=== PATIENT | male | born 1960 | race Caucasian/White ===

== ENCOUNTER 2023-01-18 15:03 | Outpatient (AMB) | payer OTHER, SELFPAY ==
--- NOTE | 2023-01-18 15:08 | MHC.PC.OV ---
Vital Signs 01/18/23 15:09 01/18/23 15:33 Height 5 ft 7 in Weight 178 lb BMI 27.9 BP 160/82 H 164/100 H Blood Pressure Location Rt brachial Rt brachial Position Sitting Sitting Respiration 12 Pulse 73 Pulse Source Pulse Oximeter Temp 97.2 F Temp Source Temporal Artery Scan Pulse Oximetry (%) 98 Oxygen Delivery Method Room Air Intake Visit Reasons: 2 mos HTN Intake Note: Patient states that he has had a migraine for about 2 weeks and stated that his BP has been fluctuating up and down and today it has been high. Patient states that he would like to try Nebivolol. Patient sztates that the Lisinopril has been causing him body aches and made him feel not himself. 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 Accompanied by: Self / Same As Patient Allergies doxycycline Allergy (Mild, Verified 01/18/23 15:24) stomach problems cillins Allergy (Mild, Uncoded 01/18/23 15:24) Rash Medication List - Last Reconciled 01/18/23 by Aakash George CNP lisinopril 20 mg PO DAILY Tobacco use date assessed: 10/20/22 Dental Screening Dental Screen Date: 01/18/23 Did you have a dental visit in the last 12 months?: Yes Did you have a dental problem in the last 6 months where you did not have access to dental care?: No Was dental information given to patient?: Patient has dentist HPI HPI Comments History of Present Illness Details 62-year-old male presents for hypertension follow-up. He reports body aches with Lisinopril. Therefore, he reduced the dose to 10 mg since his last visit. He reports persistent generalized mild headaches with intermittent blurry vision for the past 2 weeks. He notes that his blood pressure has been fluctuating up and down and has been elevated today. He reports h/o heart rate as low as 60. He notes that he will like to try nebivolol. He denies dizziness or chest pain. 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 Cognitive needs: No Hearing needs: No Vision needs: No Questionnaire Thrive Questionnaire Date Thrive assessed: 09/27/22 JASWINDER-7 AMB Questionnaire JASWINDER-7 Date JASWINDER - 7 assessed: 09/27/22 Source: Developed by Drs. Jacob Armstrong, Ann Johnson, Kishore Cruz and colleagues, with an educational jada from [employer]. Review of Systems Const Details: Const Denies chills, Denies fatigue, Denies fever(s), Denies headache(s) and Denies weakness ENT Denies dizziness and Reports headache(s) Card Denies chest pain, Denies lightheadedness, Denies dyspnea and Denies other (Palpitations) Resp Denies cough, Denies dyspnea, Denies wheezing and Denies other ( shortness of breath) GI Denies abdominal pain, Denies melena, Denies hematochezia, Denies change in bowel habits, Denies dyspepsia and Denies nausea Denies hematuria and Denies dysuria Musc Denies abnormal gait, Denies myalgias, Denies arthralgias, Denies numbness and Denies tingling Skin/Breast Denies rash, Denies unusual bruising and Denies wounds Neuro Denies abnormal gait, Denies dizziness, Denies headache(s), Denies memory loss, Denies numbness, Denies Sensory deficit (Neuro), Denies tingling and Denies weakness Psych Denies anxiety and Denies depression Endo Denies fatigue Aller/Immun Denies wheezing Physical exam (Primary Care) Vital Signs: Last Vital Signs Temp 97.2 F 01/18/23 15:09 Pulse 73 01/18/23 15:09 Resp 12 01/18/23 15:09 BP 160/82 H 01/18/23 15:09 Pulse Ox 98 01/18/23 15:09 Oxygen Delivery Method Room Air 01/18/23 15:09 BMI result Body Mass Index 27.9 Tobacco/Smoking Status: Tobacco use Status Tobacco use date assessed 10/20/22 01/18/23 15:19 Patient Tobacco Use Status Never used Tobacco 01/18/23 15:19 e-Cigarette/Vaping Use Never Used 01/18/23 15:19 Thrive Assessment: Date of Thrive Assessment Date Thrive assessed 09/27/22 01/18/23 15:19 Const Other: General: no acute distress and well developed Nutritional Appearance: well nourished Orientation/consciousness: patient oriented x3 [facility] Head: Yes normocephalic and Yes atraumatic Eyes General: appearance normal, both eyes and all related structures Pupils: Equal, round and reactive pupils present EOM: EOMs intact bilaterally Resp Effort & Inspection: normal respiratory effort Auscultation: clear to auscultation bilaterally Cardio Rate: regular rate Rhythm: regular rhythm Heart sounds: S1 normal heart sound present, S2 normal heart sound present, no gallops, no murmurs and no rubs GI Palpation (GI): No Abdominal aortic bruit present, Soft to palpation, nontender, No hepatosplenomegaly present and No Rebound tenderness present Auscultation: normal bowel sounds General: Yes no CVA tenderness Back/Spine/Pelvis Back: no CVA tenderness Cervical Spine: cervical ROM normal and No Cervical spine tenderness Thoracic/Lumbar Spine: thoraco-lumbar ROM normal, No pain with thoraco-lumbar ROM, No thoracic spinal tenderness and No lumbar spinal tenderness Extrem General: Yes normal to inspection, No edema and No calf tenderness Skin General: warm and dry. Normal skin color. Normal skin turgor Lesions: no lesions Rashes: no rashes Trauma: no lacerations or abrasions Wounds: no wounds Nails: normal Neuro General: patient oriented x3, gait normal and no focal neuro deficit Cranial nerves: Yes Equal, round and reactive pupils present Cognition (Neuro): normal cognition Gait exam (Neuro): Normal gait present Sensory Exam: No Sensory deficit (Neuro) Psych Affect: normal affect Assessment and Plan Assessment & Plan (1) Hypertension: Code(s): I10 - Essential (primary) hypertension Plan: His blood pressure is 164/100, above goal of 140/90 Will not start a beta-michele at this time due to history of heart rate of 60 He states that he is willing to resume taking lisinopril 20 mg daily. Encouraged to take the medication daily. Low-sodium diet encouraged. Follow-up for nurse visit in 1 week Return in 1 month or sooner with worsening or new symptoms Verbalized understanding and agreed with treatment plan (2) Headache: Code(s): R51.9 - Headache, unspecified Plan: Persistent headache and intermittent blurry vision be attributed to elevated blood pressure Lisinopril 20 mg daily Follow-up with worsening or new symptoms Verbalized understanding and agreed with treatment plan. Coding Level of Care Code Est Pt Level 3 (77488) Diagnoses Hypertension I10 Headache R51.9 Time Spent (min) 25
[2023-01-18 15:09] VITALS: BP 160/82; PULSE 73; RESP 12; TEMP 36.2; O2SAT 98; BMI 27.9
[2023-01-18 15:33] VITALS: BP 164/100
== END 2023-01-18 16:04 | disposition home or self-care (01) ==
PROVIDERS: Visit Provider Nurse Practitioner Family
DX: I10 Essential (primary) hypertension (principal); R51.9 Headache, unspecified
CPT/HCPCS: 99213

== ENCOUNTER 2023-02-19 14:57 | Outpatient (AMB) | payer OTHER, SELFPAY ==
--- NOTE | 2023-02-19 15:04 | MHC.PC.OV ---
Vital Signs 02/19/23 15:08 Height 5 ft 7 in Weight 176 lb BMI 27.6 BP 132/80 Blood Pressure Location Rt brachial Position Sitting Respiration 14 Pulse 76 Pulse Source Pulse Oximeter Temp 98.1 F Temp Source Temporal Artery Scan Pulse Oximetry (%) 97 Oxygen Delivery Method Room Air Intake Visit Reasons: 1 mos HTN Intake Note: Patient reports he was seen in the office and was informed he should have 20mg of lisinopril and it helped with his blood pressure. Patient reports he was working and his blood pressure was elevated, on the way home he experienced chest discomfort and he was seen in the emergency department. Patient reports testing did not show anything alarming. Patient reports the hospital added a medication for blood pressure called amlodipine 5mg and he has been taking this along with the lisinopril 20mg. Medical records were requested from [facility] in [place]. Patient reports his headaches have continued despite his blood pressure being under control at this time. 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 Accompanied by: Self / Same As Patient Allergies doxycycline Allergy (Mild, Verified 02/19/23 15:19) stomach problems cillins Allergy (Mild, Uncoded 02/19/23 15:19) Rash Medication List - Last Reconciled 02/19/23 by Aakash George CNP amlodipine 5 mg PO DAILY lisinopril 20 mg PO DAILY Tobacco use date assessed: 10/20/22 Dental Screening Dental Screen Date: 02/19/23 Did you have a dental visit in the last 12 months?: Yes Did you have a dental problem in the last 6 months where you did not have access to dental care?: No Was dental information given to patient?: Patient has dentist HPI HPI Comments History of Present Illness Details 62-year-old male presents for hypertension follow-up. He notes he was evaluated at an ED in [place] between 02/05/2023 and 02/06/2023 for chest discomfort. He notes that findings were unremarkable. He notes amlodipine 5 mg daily was added to this HTN regimen of Lisinopril 20 mg daily. He notes he has been taking both medications as prescribed. No acute symptoms today. He brought recent ED documentation with him. Labs were unremarkable except for elevated lipid levels: Triglycerides 204, total cholesterol 202, LDL direct 144, and HDL 40. CT chest and abdomen was unremarkable. He notes that echo was performed but not including in the documentation he brought. 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 Cognitive needs: No Hearing needs: No Vision needs: No Questionnaire Thrive Questionnaire Date Thrive assessed: 09/27/22 JASWINDER-7 AMB Questionnaire JASWINDER-7 Date JASWINDER - 7 assessed: 09/27/22 Source: Developed by Drs. Jacob Armstrong, Ann Johnson, Kishore Cruz and colleagues, with an educational jada from [employer]. Review of Systems Const Details: Const Denies chills, Denies fatigue, Denies fever(s), Denies headache(s) and Denies weakness ENT Denies dizziness and Denies headache(s) Card Denies chest pain, Denies lightheadedness, Denies dyspnea and Denies other (Palpitations) Resp Denies cough, Denies dyspnea, Denies wheezing and Denies other ( shortness of breath) GI Denies abdominal pain, Denies melena, Denies hematochezia, Denies change in bowel habits, Denies dyspepsia and Denies nausea Denies hematuria and Denies dysuria Musc Denies abnormal gait, Denies myalgias, Denies arthralgias, Denies numbness and Denies tingling Skin/Breast Denies rash, Denies unusual bruising and Denies wounds Neuro Denies abnormal gait, Denies dizziness, Denies headache(s), Denies memory loss, Denies numbness, Denies Sensory deficit (Neuro), Denies tingling and Denies weakness Psych Denies anxiety, Denies depression, Denies memory loss Endo Denies cold intolerance, Denies fatigue, Denies heat intolerance, Denies polydipsia and Denies polyuria Aller/Immun Denies wheezing Physical exam (Primary Care) Vital Signs: Last Vital Signs Temp 98.1 F 02/19/23 15:08 Pulse 76 02/19/23 15:08 Resp 14 02/19/23 15:08 BP 132/80 02/19/23 15:08 Pulse Ox 97 02/19/23 15:08 Oxygen Delivery Method Room Air 02/19/23 15:08 BMI result Body Mass Index 27.6 Tobacco/Smoking Status: Tobacco use Status Tobacco use date assessed 10/20/22 02/19/23 15:06 Patient Tobacco Use Status Never used Tobacco 02/19/23 15:06 e-Cigarette/Vaping Use Never Used 02/19/23 15:06 Thrive Assessment: Date of Thrive Assessment Date Thrive assessed 09/27/22 02/19/23 15:06 Const Other: General: no acute distress and well developed Nutritional Appearance: well nourished Orientation/consciousness: patient oriented x3 HENMT Head: Yes normocephalic and Yes atraumatic Eyes General: appearance normal, both eyes and all related structures Pupils: Equal, round and reactive pupils present EOM: EOMs intact bilaterally Resp Effort & Inspection: normal respiratory effort Auscultation: clear to auscultation bilaterally Cardio Rate: regular rate Rhythm: regular rhythm Heart sounds: S1 normal heart sound present, S2 normal heart sound present, no gallops, no murmurs and no rubs GI Palpation (GI): No Abdominal aortic bruit present, Soft to palpation, nontender, No hepatosplenomegaly present and No Rebound tenderness present Auscultation: normal bowel sounds General: Yes no CVA tenderness Back/Spine/Pelvis Back: no CVA tenderness Cervical Spine: cervical ROM normal and No Cervical spine tenderness Thoracic/Lumbar Spine: thoraco-lumbar ROM normal, No pain with thoraco-lumbar ROM, No thoracic spinal tenderness and No lumbar spinal tenderness Extrem General: Yes normal to inspection, No edema and No calf tenderness Skin General: warm and dry. Normal skin color. Normal skin turgor Lesions: no lesions Rashes: no rashes Trauma: no lacerations or abrasions Wounds: no wounds Nails: normal Neuro General: patient oriented x3, gait normal and no focal neuro deficit Cranial nerves: Yes Equal, round and reactive pupils present Cognition (Neuro): normal cognition Gait exam (Neuro): Normal gait present Sensory Exam: No Sensory deficit (Neuro) Psych Appearance: grossly normal Affect: normal affect Attitude: cooperative Thought process: Normal thought process present Assessment and Plan Assessment & Plan (1) Hypertension: Code(s): I10 - Essential (primary) hypertension Plan: Blood pressure is controlled, 132/80, within goal of less than 140/90 Lisinopril and amlodipine as prescribed Low-sodium diet encouraged Follow-up in 3 months or return sooner with symptoms or concerns Verbalized understanding and agreed with treatment plan. (2) Hyperlipidemia: Code(s): E78.5 - Hyperlipidemia, unspecified Plan: Recent triglyceride, total cholesterol, and LDL levels were elevated Patient declines medication treatment at this time. Reports severe adverse reaction to statins. Advised to limit foods high in saturated fat and avoid foods high trans fat. Routine exercise encouraged Lipid panel ordered. Encouraged to fast for at least 10-12 hours and get blood work done before next visit Follow-up in 3 months Verbalized understanding and agreed with treatment plan. Orders: Orders Lipid Panel Today E78.5 - Hyperlipidemia, unspecified Coding Level of Care Code Est Pt Level 3 (16555) Diagnoses Hypertension I10 Hyperlipidemia E78.5
[2023-02-19 15:08] VITALS: BP 132/80; PULSE 76; RESP 14; TEMP 36.7; O2SAT 97; BMI 27.6
== END 2023-02-19 15:44 | disposition home or self-care (01) ==
PROVIDERS: PCP Nurse Practitioner Family; Visit Provider Nurse Practitioner Family
DX: I10 Essential (primary) hypertension (principal); E78.5 Hyperlipidemia, unspecified
CPT/HCPCS: 99213

== ENCOUNTER 2023-05-30 08:58 | Outpatient (AMB) | payer OTHER, SELFPAY ==
--- NOTE | 2023-05-30 09:04 | A.OFFPC_ITS ---
Vital Signs 05/30/23 09:06 Height 5 ft 7 in Weight 177 lb 2 oz BMI 27.7 BP 132/72 Blood Pressure Location Lt brachial Position Sitting Respiration 16 Pulse 72 Pulse Source Pulse Oximeter Temp 98.4 F Temp Source Oral Pulse Oximetry (%) 98 Oxygen Delivery Method Room Air Oxygen Flow Rate 98.4 Intake Visit Reasons: Reschedule 3 mos HTN Intake Note: Patient is here to follow up on hypertension Allergies doxycycline Allergy (Mild, Verified 05/30/23 09:30) stomach problems cillins Allergy (Mild, Uncoded 05/30/23 09:30) Rash Medication List - Last Reconciled 05/30/23 by Aakash George CNP amlodipine 5 mg PO DAILY 30 days lisinopril 20 mg PO DAILY Tobacco use date assessed: 05/30/23 Dental Screening Dental Screen Date: 05/30/23 Did you have a dental visit in the last 12 months?: Yes Did you have a dental problem in the last 6 months where you did not have access to dental care?: No Was dental information given to patient?: Patient has dentist HPI HPI Comments History of Present Illness Details 63-year-old male presents for hypertensi on and hyperlipidemia follow-up He is on amlodipine and lisinopril which she admits to taking as prescribed His recent Triglycerides, total cholesterol, and LDL direct levels were elevated, 204, 202, and 144 respectively. HDL was slightly low, 40. He declined medication treatment. He reported adverse reaction to statins. Lifestyle changes including diet and exercise encouraged. Repeat lipid panel was ordered. He was advised to get fasting blood work done before his next visit. He denies acute symptoms at this time. He had CT done at the ED in 01/2023 when he presented for chest discomfort. He b rought the CT result today which revealed 3 mm solid pulmonary nodule right middle lobe. 5 mm solid perifissural nodule right middle lobe. Recommended repeat CT in 12 months if patient has significant smoking history or high-risk for developing cancer. He denies history of cigarette smoking and denies family history of lung cancer. 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 Jacob Armstrong, Ann Johnson, Kishore Cruz and colleagues, with an educational jada from [employer]. Review of Systems Const Details: Const Denies chills, Denies fatigue, Denies fever(s), Denies headache(s) and Denies weakness ENT Denies dizziness and Denies headache(s) Card Denies chest pain, Denies lightheadedness, Denies dyspnea and Denies other (Palpitations) Resp Denies cough, Denies dyspnea, Denies wheezing and Denies other ( shortness of breath) GI Denies abdominal pain, Denies melena, Denies hematochezia, Denies change in bowel habits, Denies dyspepsia and Denies nausea Denies hematuria and Denies dysuria Musc Denies abnormal gait, Denies myalgias, Denies arthralgias, Denies numbness and Denies tingling Skin/Breast Denies rash, Denies unusual bruising and Denies wounds Neuro Denies abnormal gait, Denies dizziness, Denies headache(s), Denies memory loss, Denies numbness, Denies Sensory deficit (Neuro), Denies tingling and Denies weakness Psych Denies anxiety, Denies depression, Denies memory loss Endo Denies cold intolerance, Denies fatigue, Denies heat intolerance, Denies polydipsia and Denies polyuria Aller/Immun Denies wheezing Physical exam (Primary Care) Vital Signs: Last Vital Signs Temp 98.4 F 05/30/23 09:06 Pulse 72 05/30/23 09:06 Resp 16 05/30/23 09:06 BP 132/72 05/30/23 09:06 Pulse Ox 98 05/30/23 09:06 Oxygen Delivery Method Room Air 05/30/23 09:06 Oxygen Flow Rate 98.4 05/30/23 09:06 BMI result Body Mass Index 27.7 Tobacco/Smoking Status: Tobacco use Status Tobacco use date assessed 05/30/23 05/30/23 09:14 Patient Tobacco Use Status Never used Tobacco 05/30/23 09:06 e-Cigarette/Vaping Use Never Used 05/30/23 09:06 Thrive Assessment: Date of Thrive Assessment Date Thrive assessed 09/27/22 05/30/23 09:06 Const Other: General: no acute distress and well developed Nutritional Appearance: well nourished Orientation/consciousness: patient oriented x3 HENMT Head: Yes normocephalic and Yes atraumatic Eyes General: appearance normal, both eyes and all related structures Pupils: Equal, round and reactive pupils present EOM: EOMs intact bilaterally Resp Effort & Inspection: normal respiratory effort Auscultation: clear to auscultation bilaterally Cardio Rate: regular rate Rhythm: regular rhythm Heart sounds: S1 normal heart sound present, S2 normal heart sound present, no gallops, no murmurs and no rubs GI Palpation (GI): No Abdominal aortic bruit present, Soft to palpation, nontender, No hepatosplenomegaly present and No Rebound tenderness present Auscultation: normal bowel sounds General: Yes no CVA tenderness Back/Spine/Pelvis Back: no CVA tenderness Cervical Spine: cervical ROM normal and No Cervical spine tenderness Thoracic/Lumbar Spine: thoraco-lumbar ROM normal, No pain with thoraco-lumbar ROM, No thoracic spinal tenderness and No lumbar spinal tenderness Extrem General: Yes normal to inspection, No edema and No calf tenderness Skin General: warm and dry. Normal skin color. Normal skin turgor Lesions: no lesions Rashes: no rashes Trauma: no lacerations or abrasions Wounds: no wounds Nails: normal Neuro General: patient oriented x3, gait normal and no focal neuro deficit Cranial nerves: Yes Equal, round and reactive pupils present Cognition (Neuro): normal cognition Gait exam (Neuro): Normal gait present Sensory Exam: No Sensory deficit (Neuro) Psych Appearance: grossly normal Affect: normal affect Attitude: cooperative Thought process: Normal thought process present Assessment and Plan Assessment & Plan (1) Hypertension: Code(s): I10 - Essential (primary) hypertension Plan: Blood pressure is 132/72, within goal of less than 140/90 Continue with current treatment regimen Low-sodium diet encouraged Will continue to monitor Verbalized understanding and agreed with treatment plan (2) Hyperlipidemia: Code(s): E78.5 - Hyperlipidemia, unspecified Plan: His recent Triglycerides, total cholesterol, and LDL direct levels were elevated, 204, 202, and 144 respectively. HDL was slightly low, 40 He brought a record of his recent lipid panel level. Triglycerides and total cholesterol levels were elevated, 212, and 528 respectively, HDL was low, 36, LDL was not calculated He declines medication treatment He requests a repeat lipid panel and notes that his recent lipid panel blood work was nonfasting Lipid panel ordered. Advised to fast for 10-12 hours, may drink water only, and get blood work done before his next visit Healthy diet and routine exercise encouraged Follow-up in 2-3 weeks or return sooner with symptoms or concerns Verbalized understanding and agreed with treatment plan (3) Pulmonary nodules: Code(s): R91.8 - Other nonspecific abnormal finding of lung field Plan: He had CT done at the ED in 01/2023 when he presented for chest discomfort. He brought the CT result today which revealed 3 mm solid pulmonary nodule right middle lobe. 5 mm solid perifissural nodule right middle lobe. Recommended repeat CT in 12 months if patient has significant smoking history or high-risk for developing cancer. He denies history of cigarette smoking and denies family history of lung cancer. Referred to pulmonology Return with symptoms or concerns Verbalized understanding and agreed with treatment plan Orders: Orders Lipid Panel Today E78.5 - Hyperlipidemia, unspecified LDL Cholesterol Direct Today E78.5 - Hyperlipidemia, unspecified Referrals Pulmonology Referral R91.8 - Other nonspecific abnormal finding of lung field Coding Level of Care Code Est Pt Level 3 (30316) Diagnoses Hypertension I10 Hyperlipidemia E78.5 Pulmonary nodules R91.8
[2023-05-30 09:06] VITALS: BP 132/72; PULSE 72; RESP 16; TEMP 36.9; O2SAT 98; BMI 27.7
== END 2023-05-30 09:45 | disposition home or self-care (01) ==
PROVIDERS: PCP Nurse Practitioner Family; Visit Provider Nurse Practitioner Family
DX: I10 Essential (primary) hypertension (principal); E78.5 Hyperlipidemia, unspecified; R91.8 Other nonspecific abnormal finding of lung field
CPT/HCPCS: 99213

== ENCOUNTER 2023-06-08 15:10 | Outpatient (AMB) | payer OTHER, SELFPAY ==
--- NOTE | 2023-06-08 15:14 | A.OFFVIS_ITS ---
Intake Vital Signs 3 06/08/23 15:15 Height 5 ft 7 in Weight 177 lb BMI 27.7 BP 122/70 Blood Pressure Location Rt brachial Position Sitting Pulse 62 Pulse Source Pulse Oximeter Pulse Oximetry (%) 98 Oxygen Delivery Method Room Air Intake Visit Reasons: Other nonspecific abnormal finding of lung field Machine Designer Required: No Telegraph Repeater Mechanic: Telegraph Repeater Mechanic offered & declined Accompanied by: Self / Same As Patient Allergies doxycycline Allergy (Mild, Verified 06/08/23 15:18) stomach problems cillins Allergy (Mild, Uncoded 06/08/23 15:18) Rash Medication List - Last Reconciled 06/08/23 by Karina Fregoso LPN amlodipine 5 mg PO DAILY 30 days lisinopril 20 mg PO DAILY HPI Other nonspecific abnormal finding of lung field 2 HPI0 Details Odilon is a pleasant 63 year old male, never smoker, with underlying history of GERD. He was referred for pulmonary evalaution after CT from January 2023, revealed pulmonary nodules. CT report below. He denies any respiratory symptoms at this time. 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 He denies any personal or family history of respiratory conditions. 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 Cognitive needs: No Hearing needs: No Vision needs: No Review of Systems Const Denies chills, Denies excessive sweating, Denies fever(s), Denies headache(s) and Denies night sweats Eyes Denies dry eyes, Denies irritation and Denies itchy eyes ENT Reports Normal hearing present, Denies headache(s), Denies nasal congestion, Denies nasal discharge, Denies post nasal drip and Denies sore throat Card Denies chest pain, Denies chest pain at rest, Denies chest pain with activity, Denies claudication, Denies leg edema, Denies dyspnea, Denies dyspnea on exertion, Denies orthopnea and Denies paroxysmal nocturnal dyspnea Resp Denies chest congestion, Denies cough, Denies excessive phlegm production, Denies pain on inspiration, Denies pain with cough, Denies dyspnea, Denies dyspnea on exertion, Denies stridor and Denies wheezing Musc Denies myalgias Neuro Reports Normal hearing present and Denies headache(s) Endo Denies excessive sweating J Luis/Lymph Denies lymphadenopathy Aller/Immun Denies itchy eyes, Denies seasonal rhinorrhea and Denies wheezing Physical Exam Vital Signs: Last Vital Signs Pulse 62 06/08/23 15:15 BP 122/70 06/08/23 15:15 Pulse Ox 98 06/08/23 15:15 Oxygen Delivery Method Room Air 06/08/23 15:15 BMI result Body Mass Index 27.7 Const General: cooperative, healthy appearing, comfortable, no acute distress, well developed and alert Orientation/consciousness: patient oriented x3 Limitations: no limitations HEENT Head: Yes normal to inspection, Yes normocephalic and Yes atraumatic Ears: hearing grossly normal bilaterally and external ears normal Eyes General: appearance normal, both eyes and all related structures Eyelids: Yes eyelids normal Sclerae: sclerae normal EOM: EOMs intact bilaterally Neck Neck: Yes normal visual inspection and Yes no lymphadenopathy Lymphatic: no lymphadenopathy noted Chest Chest palpation & inspection: normal inspection of the chest Resp Effort & Inspection: normal respiratory effort, able to speak in complete sentences, no audible wheezes, no cough, no stridor, not tachypneic, no tripod positioning and no use of accessory muscles Auscultation: clear to auscultation bilaterally Cardio Jugular venous distension: no JVD Rate: regular rate Rhythm: regular rhythm Skin Other: warm, dry General skin exam: no rashes or lesions noted Neuro General: patient oriented x3 Cranial nerves: Yes Normal hearing present Cognition (Neuro): normal cognition Gait exam (Neuro): Normal gait present Extrem General: Yes normal to inspection, Yes capillary refill normal, Yes no clubbing, cyanosis or edema and Yes no pedal edema Psych Appearance: grossly normal and well kempt Speech and movement: Normal speech and movement present and Clear speech present Affect: normal affect Attitude: cooperative Thought process: Normal thought process present Thought content: Normal thought content present Insight: Good insight present (Psych) Judgement: Good judgement present (Psych) Results Reviewed Results Reviewed: Assessment & Plan Assessment & Plan (1) Pulmonary nodules: Code(s): R91.8 - Other nonspecific abnormal finding of lung field Plan Reviewed chest CT which revealed a two pulmonary nodules, largest 5 mm, both of RML. Will send for repeat chest CT in one year to assess for stability. He is requesting this be performed at [facility]. All questions were answered and patient is in agreement of plan. Will follow up in one year or sooner if needed. Orders: Orders 2 CT chest wo IV con 9 Months R91.8 - Other nonspecific abnormal finding of lung field Coding Level of Care Code New Pt Level 3 (68786) Diagnoses Pulmonary nodules R91.8
[2023-06-08 15:15] VITALS: BP 122/70; PULSE 62; O2SAT 98; BMI 27.7
== END 2023-06-08 16:21 | disposition home or self-care (01) ==
PROVIDERS: PCP Nurse Practitioner Family; Visit Provider Nurse Practitioner Family
DX: R91.8 Other nonspecific abnormal finding of lung field (principal)
CPT/HCPCS: 99203

== ENCOUNTER → 2023-06-08 15:10 | Outpatient (BNVA) | payer OTHER, SELFPAY | PROVIDERS: PCP Nurse Practitioner Family; Visit Provider Nurse Practitioner Family ==

== ENCOUNTER 2023-10-19 15:39 | Outpatient (AMB) | payer OTHER, SELFPAY ==
[2023-10-19 15:45] VITALS: BP 138/78; PULSE 68; RESP 13; TEMP 36.6; O2SAT 99; BMI 25.4
--- NOTE | 2023-10-19 15:45 | MHC.PC.OV ---
Vital Signs 10/19/23 15:45 Height 5 ft 7 in Weight 162 lb BMI 25.4 BP 138/78 Blood Pressure Location Rt brachial Position Sitting Respiration 13 Pulse 68 Pulse Source Pulse Oximeter Temp 97.9 F Temp Source Temporal Artery Scan Pulse Oximetry (%) 99 Oxygen Delivery Method Room Air Intake Visit Reasons: CPE Retail Commission Sales Associate Required: No Accompanied by: Self / Same As Patient Allergies doxycycline Allergy (Mild, Verified 10/19/23 16:16) stomach problems cillins Allergy (Mild, Uncoded 10/19/23 16:16) Rash Medication List - Last Reconciled 10/19/23 by Aakash George CNP amlodipine 2.5 mg PO DAILY lisinopril 5 mg PO DAILY Tobacco use date assessed: 10/19/23 Dental Screening Dental Screen Date: 10/19/23 Did you have a dental visit in the last 12 months?: Yes Did you have a dental problem in the last 6 months where you did not have access to dental care?: No Was dental information given to patient?: Patient has dentist HPI HPI Comments History of Present Illness Details 63-year-old male presents for an extended physical exam He notes that he has been taking lisinopril 5 mg daily instead of 20 mg daily (he cuts the pill in 4 pieces) and amlodipine 2.5 mg daily instead of 5 mg daily (he cuts the pill in half) He admits to making lifestyle changes including diet and routine exercise. He admits to maintaining a low-salt diet He offers no complaints and denies acute symptoms at this time He notes that his last colonoscopy was done in [place] within the past 10 years: normal He states that he has not up-to-date on the current flu vaccines and he is never been vaccinated for shingles [facility] Medical History (Updated 10/19/23 @ 15:52 by MELANIE Rodriguez) Gout No pertinent past medical history Surgical History No pertinent past surgical history Social History Household Members: Family Housing: House Patient Tobacco Use Status: Never used Tobacco e-Cigarette/Vaping Use: Never Used service: No Current occupational status: employed 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 1. Little interest or pleasure in doing things: not at all 2. Feeling down, depressed, or hopeless: not at all 3. Trouble falling or staying asleep, or sleeping too much: not at all 4. Feeling tired or having little energy: not at all 5. Poor appetite or overeating: not at all 6. Feeling bad about yourself - or that you are a failure or have let yourself or your family down: not at all 7. Trouble concentrating on things, such as reading the newspaper or watching television: not at all 8. Moving or speaking so slowly that other people could have noticed. Or the opposite - being so fidgety or restless that you have been moving around a lot more than usual: not at all 9. Thoughts that you would be better off or of hurting yourself in some way: not at all Total score: 0 Depression Screening Interpretation: Negative Depression Screening Done: Yes 54714 - PHQ-9 Billing: Yes Source: Developed by Drs. Jacob Armstrong, Ann Johnson, Kishore Cruz and colleagues, with an educational jada from [employer]. Thrive Questionnaire Date Thrive assessed: 10/19/23 I am a: Patient What is your living situation today?: I have a steady place to live Within the past 12 months, did the food you bought not last and you didn't have the money to get more?: Never true Within the past 12 months, did you worry whether your food would run out before you got money to buy more?: Never true Do you have trouble paying for medicines?: No Do you have trouble getting transportation to medical appointments?: No Do you have trouble paying your heating and electricity bill?: No Do you have trouble taking care of your child, family member or friend?: No Do you have trouble with day-to-day activities such as bathing, preparing meals, shopping, managing finances, etc.?: No Are you currently unemployed and looking for a job?: No Are you interested in more education?: No Please select the resources that you would like help with: None Currently or been in a relationship where the following occur: no concerns reported THRIVE Score: 0 AUDIT C Alcohol Use Questionnaire (AUDIT-C) 1. How often do you have a drink containing alcohol?: Never 3. How often do you have six or more drinks on one occasion?: Never Total Score: 0 JASWINDER-7 AMB Questionnaire JASWNIDER-7 Date JASWINDER - 7 assessed: 10/19/23 Feeling nervous, anxious, or on edge: 0 = Not at all Not being able to stop or control worryin = Not at all Worrying too much about different things: 0 = Not at all Trouble relaxin = Not at all Being so restless that it is hard to sit still: 0 = Not at all Becoming easily annoyed or irritable: 0 = Not at all Feeling afraid as if something awful might happen: 0 = Not at all Total JASWINDER-7 score (0-4 normal; 5-9 mild; 10-14 moderate; 15-21 severe): 0 Source: Developed by Drs. Jacob Armstrong, Ann Johnson, Kishore Cruz and colleagues, with an educational jada from [employer]. JASWINDER-7 Assessment Billing JASWINDER-7 Assessment Tool: JASWINDER-7 Assessment 38598 Review of Systems Const Details: Denies chills, Denies fatigue, Denies fever(s), Denies headache(s) and Denies weakness HEENT Denies change in vision, Denies dizziness, Denies headache(s), Denies hearing loss, Denies nasal congestion, Denies sinus pain, Denies sinus pressure and Denies sore throat Card Denies chest pain, Denies lightheadedness, Denies dyspnea and Denies other (palpitations) Resp Denies cough, Denies dyspnea and Denies wheezing GI Denies abdominal pain, Denies melena, Denies hematochezia, Denies change in bowel habits, Denies dyspepsia and Denies nausea Denies hematuria and Denies dysuria Musc Denies abnormal gait, Denies myalgias, Denies arthralgias, Denies numbness and Denies tingling Skin/Breast Denies rash, Denies unusual bruising and Denies wounds Neuro Denies abnormal gait, Denies dizziness, Denies headache(s), Denies memory loss, Denies numbness, Denies Sensory deficit (Neuro), Denies tingling and Denies weakness Psych Denies anxiety, Denies depression and Denies memory loss Endo Denies cold intolerance, Denies fatigue, Denies heat intolerance, Denies polydipsia and Denies polyuria J Luis/Lymph Denies easy bleeding and Denies easy bruising Aller/Immun Denies wheezing Physical exam (Primary Care) Vital Signs: Last Vital Signs Temp 97.9 F 10/19/23 15:45 Pulse 68 10/19/23 15:45 Resp 13 10/19/23 15:45 BP 138/78 10/19/23 15:45 Pulse Ox 99 10/19/23 15:45 Oxygen Delivery Method Room Air 10/19/23 15:45 BMI result Body Mass Index 25.4 Tobacco/Smoking Status: Tobacco use Status Tobacco use date assessed 10/19/23 10/19/23 15:54 Patient Tobacco Use Status Never used Tobacco 10/19/23 15:54 e-Cigarette/Vaping Use Never Used 10/19/23 15:54 PHQ-9: PHQ-9 Score PHQ-9: Total score 0 10/19/23 15:54 Depression Screening Interpretation: Negative Thrive Assessment: Date of Thrive Assessment Date Thrive assessed 10/19/23 10/19/23 15:54 Currently or been in a relationship where the following occur: no concerns reported Const Other: General: no acute distress, well developed, alert and awake Nutritional Appearance: well nourished Orientation/consciousness: patient oriented x3 HENMT Head: Yes normocephalic and Yes atraumatic Ears: hearing grossly normal bilaterally and TM's normal bilaterally General nose exam: Normal external nose present and Normal nares present Mouth: Normal oral and palatal mucosa present and moist mucous membranes Teeth and gingiva: dentition normal Throat: Yes oropharynx normal Eyes Pupils: Equal, round and reactive pupils present and Pupil accommodation reflex normal EOM: EOMs intact bilaterally Neck Neck: Yes normal visual inspection, Yes no lymphadenopathy and Yes trachea midline Thyroid: Thyroid normal Carotids: no bruits Lymphatic: no lymphadenopathy noted Chest Chest palpation & inspection: normal inspection of the chest Resp Effort & Inspection: normal respiratory effort Auscultation: clear to auscultation bilaterally Cardio Rate: regular rate Rhythm: regular rhythm Heart sounds: S1 normal heart sound present, S2 normal heart sound present, no gallops, no murmurs and no rubs Bruits: no abdominal aortic bruits and no carotid bruits GI Palpation (GI): No Abdominal aortic bruit present, Soft to palpation, nontender, No hepatosplenomegaly present and No Rebound tenderness present Auscultation: normal bowel sounds General: Yes no CVA tenderness Back/Spine/Pelvis Back: no CVA tenderness Cervical Spine: cervical ROM normal and No Cervical spine tenderness Thoracic/Lumbar Spine: thoraco-lumbar ROM normal, No pain with thoraco-lumbar ROM, No thoracic spinal tenderness and No lumbar spinal tenderness Skin General: warm and dry. Normal skin color. Normal skin turgor Lesions: no lesions Rashes: no rashes Trauma: no lacerations or abrasions Wounds: no wounds Nails: normal Neuro General: patient oriented x3, gait normal and CN's II-XI intact bilaterally Cranial nerves: Yes Equal, round and reactive pupils present Cognition (Neuro): normal cognition Gait exam (Neuro): Normal gait present Motor exam (neuro): 5/5 motor strength present throughout Sensory Exam: No Sensory deficit (Neuro) Deep tendon reflexes (DTR's): Right patellar reflex intensity grade: 2+ and Left patellar reflex intensity grade: 2+ Extrem General: Yes normal to inspection, No edema and No calf tenderness Psych Appearance: grossly normal Affect: normal affect Attitude: cooperative Thought process: Normal thought process present Assessment and Plan Assessment & Plan (1) Physical exam, annual: Code(s): Z00.00 - Encounter for general adult medical examination without abnormal findings Plan: No significant physical restrictions or limitations noted Continue current treatment regimen Low-sodium diet encouraged Advised to bring colonoscopy record for review and to determine next colonoscopy. He notes that his next colonoscopy is already scheduled to [place] Follow-up in 2 months for hypertension or return sooner with symptoms or concerns Verbalized understanding and agreed with plan (2) Hypertension: Code(s): I10 - Essential (primary) hypertension Plan: Blood pressure is 138/70, within goal of less than 140/90 Continue to take amlodipine 2.5 mg daily and lisinopril 5 mg daily Low-sodium diet encouraged Follow-up in 2 months Verbalized understanding and agreed with treatment plan (3) Vaccine counseling: Code(s): Z71.85 - Encounter for immunization safety counseling Plan: He has not been vaccinated for shingles and not up-to-date on the flu vaccine Instructed on the importance of vaccination and encouraged to get vaccinated for flu and shingles. He may request these vaccines from the local pharmacy Verbalized understanding and agreed with the plan Medications: Changed From amlodipine 5 mg PO DAILY 30 days 30 tabs 0RF To amlodipine 2.5 mg PO DAILY Coding Level of Care Code Est Pt Prev Care 40-64y(53703) Diagnoses Physical exam, annual Z00.00 Hypertension I10 Vaccine counseling Z71.85 Additional Codes JASWINDER-7 Assessment Billing - JASWINDER-7 Assessment Tool: JASWINDER-7 Assessment 59924 ([id number])
== END 2023-10-19 16:34 | disposition home or self-care (01) ==
PROVIDERS: PCP Nurse Practitioner Family; Visit Provider Nurse Practitioner Family
DX: Z00.00 Encounter for general adult medical examination without abnormal findings (principal); I10 Essential (primary) hypertension; Z71.85 Encounter for immunization safety counseling
CPT/HCPCS: 99396

== ENCOUNTER 2023-12-24 14:55 | Outpatient (AMB) | payer OTHER, SELFPAY ==
[2023-12-24 15:04] VITALS: BP 138/76; PULSE 72; RESP 14; TEMP 36.5; O2SAT 99; BMI 24.9
--- NOTE | 2023-12-24 15:04 | MHC.PC.OV ---
Vital Signs 12/24/23 15:04 12/24/23 15:16 Height 5 ft 7 in Weight 159 lb 4 oz BMI 24.9 BP 138/76 130/70 Blood Pressure Location Rt brachial Lt brachial Position Sitting Sitting Respiration 14 Pulse 72 Pulse Source Pulse Oximeter Temp 97.7 F Temp Source Temporal Artery Scan Pulse Oximetry (%) 99 Oxygen Delivery Method Room Air Intake Visit Reasons: 2 mos HTN Health Safety Specialist Required: No Accompanied by: Self / Same As Patient Allergies doxycycline Allergy (Mild, Verified 12/24/23 15:13) stomach problems cillins Allergy (Mild, Uncoded 12/24/23 15:13) Rash Medication List - Last Reconciled 12/24/23 by Aakash George CNP amlodipine 2.5 mg PO DAILY 30 days lisinopril 5 mg PO DAILY Tobacco use date assessed: 10/19/23 Dental Screening Dental Screen Date: 10/19/23 HPI HPI Comments History of Present Illness Details 63-year-old male presents for hypertension follow-up He admits to taking amlodipine 2.5 mg daily and lisinopril 5 mg daily without adverse reactions He admits to making healthy dietary changes including low-sodium diet. 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 Jacob Armstrong, Ann Johnson, Kishore Cruz and colleagues, with an educational jada from for[MD]. Review of Systems Const Details: Const Denies chills, Denies fatigue, Denies fever(s), Denies headache(s) and Denies weakness ENT Denies dizziness and Denies headache(s) Card Denies chest pain, Denies lightheadedness, Denies dyspnea and Denies other (Palpitations) Resp Denies cough, Denies dyspnea, Denies wheezing and Denies other ( shortness of breath) GI Denies abdominal pain, Denies melena, Denies hematochezia, Denies change in bowel habits, Denies dyspepsia and Denies nausea Denies hematuria and Denies dysuria Musc Denies abnormal gait, Denies myalgias, Denies arthralgias, Denies numbness and Denies tingling Skin/Breast Denies rash, Denies unusual bruising and Denies wounds Neuro Denies abnormal gait, Denies dizziness, Denies headache(s), Denies memory loss, Denies numbness, Denies Sensory deficit (Neuro), Denies tingling and Denies weakness Psych Denies anxiety, Denies depression, Denies memory loss Endo Denies cold intolerance, Denies fatigue, Denies heat intolerance, Denies polydipsia and Denies polyuria Aller/Immun Denies wheezing Physical exam (Primary Care) Vital Signs: Last Vital Signs Temp 97.7 F 12/24/23 15:04 Pulse 72 12/24/23 15:04 Resp 14 12/24/23 15:04 BP 138/76 12/24/23 15:04 Pulse Ox 99 12/24/23 15:04 Oxygen Delivery Method Room Air 12/24/23 15:04 BMI result Body Mass Index 24.9 Tobacco/Smoking Status: Tobacco use Status Tobacco use date assessed 10/19/23 12/24/23 15:08 Patient Tobacco Use Status Never used Tobacco 12/24/23 15:08 e-Cigarette/Vaping Use Never Used 12/24/23 15:08 Thrive Assessment: Date of Thrive Assessment Date Thrive assessed 10/19/23 12/24/23 15:08 Const Other: General: no acute distress and well developed Nutritional Appearance: well nourished Orientation/consciousness: patient oriented x3 HENMT Head: Yes normocephalic and Yes atraumatic Eyes General: appearance normal, both eyes and all related structures Pupils: Equal, round and reactive pupils present EOM: EOMs intact bilaterally Resp Effort & Inspection: normal respiratory effort Auscultation: clear to auscultation bilaterally Cardio Rate: regular rate Rhythm: regular rhythm Heart sounds: S1 normal heart sound present, S2 normal heart sound present, no gallops, no murmurs and no rubs GI Palpation (GI): No Abdominal aortic bruit present, Soft to palpation, nontender, No hepatosplenomegaly present and No Rebound tenderness present Auscultation: normal bowel sounds General: Yes no CVA tenderness Back/Spine/Pelvis Back: no CVA tenderness Cervical Spine: cervical ROM normal and No Cervical spine tenderness Thoracic/Lumbar Spine: thoraco-lumbar ROM normal, No pain with thoraco-lumbar ROM, No thoracic spinal tenderness and No lumbar spinal tenderness Extrem General: Yes normal to inspection, No edema and No calf tenderness Skin General: warm and dry. Normal skin color. Normal skin turgor Neuro General: patient oriented x3, gait normal and no focal neuro deficit Cranial nerves: Yes Equal, round and reactive pupils present Cognition (Neuro): normal cognition Gait exam (Neuro): Normal gait present Sensory Exam: No Sensory deficit (Neuro) Psych Appearance: grossly normal Affect: normal affect Attitude: cooperative Thought process: Normal thought process present Assessment and Plan Assessment & Plan (1) Hypertension: Code(s): I10 - Essential (primary) hypertension Plan: Resting blood pressure is 130/70, within goal of less than 140/90 Continue to take amlodipine and lisinopril as prescribed Low-sodium diet and routine exercise encouraged Follow-up in 3 months or sooner with symptoms or concerns Verbalized understanding and agreed with treatment plan Coding Level of Care Code Est Pt Level 3 (20193) Diagnoses Hypertension I10
[2023-12-24 15:16] VITALS: BP 130/70
== END 2023-12-24 15:24 | disposition home or self-care (01) ==
PROVIDERS: PCP Nurse Practitioner Family; Visit Provider Nurse Practitioner Family
DX: I10 Essential (primary) hypertension (principal)
CPT/HCPCS: 99213

== ENCOUNTER 2024-02-08 13:18 | Outpatient (AMB) | payer OTHER, SELFPAY ==
[2024-02-08 13:20] VITALS: BP 140/78; PULSE 60; O2SAT 97; BMI 24.8
--- NOTE | 2024-02-08 13:20 | A.OFFVIS_ITS ---
Vital Signs 3 02/08/24 13:20 Height 5 ft 7 in Weight 158 lb 6 oz BMI 24.8 BP 140/78 H Blood Pressure Location Rt brachial Position Sitting Pulse 60 Pulse Source Pulse Oximeter Pulse Oximetry (%) 97 Oxygen Delivery Method Room Air Intake Visit Reasons: X-ray /FU Allergies doxycycline Allergy (Mild, Verified 02/08/24 13:23) stomach problems cillins Allergy (Mild, Uncoded 02/08/24 13:23) Rash HPI HPI X-ray /FU: Details: Odilon is a pleasant 63 year old male, never smoker, with underlying history of GERD. He was initially referred for pulmonary evaluation after CT from January 2023, revealed pulmonary nodules, largest 5 mm of RML, with no note of any medistinal or hilar adenopathy. Imaging was performed at an outside facility in [place]. He was sent for repeat imaging to assess for stability of nodule, however insurance required CXR to be performed prior to approval. Today he presents to revew CXR results. Since the last visit, he denies any urgent care visits or hospitalizations. He denies any recent URI infections and currently denies any respiratory symptoms at this time. 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 Cognitive needs: No Hearing needs: No Vision needs: No Review of Systems Const Denies chills, Denies excessive sweating, Denies fever(s), Denies headache(s) and Denies night sweats Eyes Denies dry eyes, Denies irritation and Denies itchy eyes ENT Reports Normal hearing present, Denies headache(s), Denies nasal congestion, Denies nasal discharge, Denies post nasal drip and Denies sore throat Card Denies chest pain, Denies chest pain at rest, Denies chest pain with activity, Denies claudication, Denies leg edema, Denies dyspnea, Denies dyspnea on exertion, Denies orthopnea and Denies paroxysmal nocturnal dyspnea Resp Denies chest congestion, Denies cough, Denies excessive phlegm production, Denies pain on inspiration, Denies pain with cough, Denies dyspnea, Denies dyspnea on exertion, Denies stridor and Denies wheezing Musc Denies myalgias Neuro Reports Normal hearing present and Denies headache(s) Endo Denies excessive sweating J Luis/Lymph Denies lymphadenopathy Aller/Immun Denies itchy eyes, Denies seasonal rhinorrhea and Denies wheezing Physical Exam Vital Signs: Last Vital Signs Pulse 60 02/08/24 13:20 BP 140/78 H 02/08/24 13:20 Pulse Ox 97 02/08/24 13:20 Oxygen Delivery Method Room Air 02/08/24 13:20 BMI result Body Mass Index 24.8 Const General: cooperative, healthy appearing, comfortable, no acute distress, well developed and alert Orientation/consciousness: patient oriented x3 Limitations: no limitations HEENT Head: Yes normal to inspection, Yes normocephalic and Yes atraumatic Ears: hearing grossly normal bilaterally and external ears normal Eyes General: appearance normal, both eyes and all related structures Eyelids: Yes eyelids normal Sclerae: sclerae normal EOM: EOMs intact bilaterally Neck Neck: Yes normal visual inspection and Yes no lymphadenopathy Lymphatic: no lymphadenopathy noted Chest Chest palpation & inspection: normal inspection of the chest Resp Effort & Inspection: normal respiratory effort, able to speak in complete sentences, no audible wheezes, no cough, no stridor, not tachypneic, no tripod positioning and no use of accessory muscles Auscultation: clear to auscultation bilaterally Cardio Jugular venous distension: no JVD Rate: regular rate Rhythm: regular rhythm Skin Other: warm, dry General skin exam: no rashes or lesions noted Neuro General: patient oriented x3 Cranial nerves: Yes Normal hearing present Cognition (Neuro): normal cognition Gait exam (Neuro): Normal gait present Extrem General: Yes normal to inspection, Yes capillary refill normal, Yes no clubbing, cyanosis or edema and Yes no pedal edema Psych Appearance: grossly normal and well kempt Speech and movement: Normal speech and movement present and Clear speech present Affect: normal affect Attitude: cooperative Thought process: Normal thought process present Thought content: Normal thought content present Insight: Good insight present (Psych) Judgement: Good judgement present (Psych) Results Reviewed Results Reviewed: Assessment & Plan Assessment & Plan (1) Pulmonary nodules: Code(s): R91.8 - Other nonspecific abnormal finding of lung field Category: Medical (2) Hilar adenopathy: Code(s): R59.0 - Localized enlarged lymph nodes Category: Medical Plan Reviewed CXR which revealed asymmetric left hilar prominence. Left hilar adenopathy or mass can not be excluded, with recommendations for a chest CT. Will send for chest CT with contrast to better evaluate. Patient is requesting this order be sent to [facility]. BUN/Creatinine lab orders given to patient and will have this performed at [facility]. He denies prior history of kidney disease or diabetes. All questions were answered and patient is in agreement of plan. Will follow up to review results. Orders: Orders 2 CT chest w IV con Today R59.0 - Localized enlarged lymph nodes Blood Urea Nitrogen Today Z01.811 - Encounter for preprocedural respiratory examination Creatinine Today Z01.811 - Encounter for preprocedural respiratory examination Coding Level of Care Code Est Pt Level 4 (04948) Diagnoses Pulmonary nodules R91.8 Hilar adenopathy R59.0
== END 2024-02-08 14:32 | disposition home or self-care (01) ==
PROVIDERS: PCP Nurse Practitioner Family; Visit Provider Nurse Practitioner Family
DX: R91.8 Other nonspecific abnormal finding of lung field (principal); R59.0 Localized enlarged lymph nodes
CPT/HCPCS: 99214

== ENCOUNTER → 2024-02-08 13:18 | Outpatient (BNVA) | payer OTHER, SELFPAY | PROVIDERS: PCP Nurse Practitioner Family; Visit Provider Nurse Practitioner Family ==

== ENCOUNTER 2024-03-31 15:24 | Outpatient (AMB) | payer OTHER, SELFPAY ==
--- NOTE | 2024-03-31 15:25 | A.OFFPC_ITS ---
Vital Signs 03/31/24 15:28 03/31/24 15:43 Height 5 ft 7 in Weight 160 lb 4 oz BMI 25.1 BP 142/78 H 136/70 Blood Pressure Location Rt brachial Rt brachial Position Sitting Sitting Respiration 15 Pulse 66 Pulse Source Pulse Oximeter Temp 97.6 F Temp Source Oral Pulse Oximetry (%) 97 Oxygen Delivery Method Room Air Intake Visit Reasons: 3 month HTN Intake Note: follow up on hypertension. Allergies doxycycline Allergy (Mild, Verified 03/31/24 15:32) stomach problems cillins Allergy (Mild, Uncoded 03/31/24 15:32) Rash Medication List - Last Reconciled 03/31/24 by Aakash George CNP amlodipine 2.5 mg PO DAILY 30 days lisinopril 5 mg PO DAILY 30 days Tobacco use date assessed: 10/19/23 Dental Screening Dental Screen Date: 10/19/23 HPI HPI Comments History of Present Illness Details 63-year-old male presents for hypertensi on follow-up He admits to taking amlodipine 2.5 mg daily and lisinopril 5 mg daily without adverse reactions He admits to making healthy dietary changes including low-sodium diet. 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 How many drinks containing alcohol do you have on a typical day when you are drinking?: 1 or 2 3. How often do you have six or more drinks on one occasion?: Less than monthly Total Score: 1 JASWINDER-7 AMB Questionnaire JASWINDER-7 Date JASWINDER - 7 assessed: 10/19/23 Source: Developed by Drs. Jacob Armstrong, Ann Johnson, Kishore Cruz and colleagues, with an educational jada from [employer]. Review of Systems Const Details: Const Denies chills, Denies fatigue, Denies fever(s), Denies headache(s) and Denies weakness ENT Denies dizziness and Denies headache(s) Card Denies chest pain, Denies lightheadedness, Denies dyspnea and Denies other (Palpitations) Resp Denies cough, Denies dyspnea, Denies wheezing and Denies other ( shortness of b reath) GI Denies abdominal pain, Denies melena, Denies hematochezia, Denies change in bowel habits, Denies dyspepsia and Denies nausea Denies hematuria and Denies dysuria Musc Denies abnormal gait, Denies myalgias, Denies arthralgias, Denies numbness and Denies tingling Skin/Breast Denies rash, Denies unusual bruising and Denies wounds Neuro Denies abnormal gait, Denies dizziness, Denies headache(s), Denies memory loss, Denies numbness, Denies Sensory deficit (Neuro), Denies tingling and Denies weakness Psych Denies anxiety, Denies depression, Denies memory loss Endo Denies cold intolerance, Denies fatigue, Denies heat intolerance, Denies polydipsia and Denies polyuria Aller/Immun Denies wheezing Physical exam (Primary Care) Tobacco/Smoking Status: Tobacco use Status Tobacco use date assessed 10/19/23 12/24/23 15:08 Patient Tobacco Use Status Never used Tobacco 12/24/23 15:08 e-Cigarette/Vaping Use Never Used 12/24/23 15:08 Thrive Assessment: Date of Thrive Assessment Date Thrive assessed 10/19/23 12/24/23 15:08 Const Other: General: no acute distress and well developed Nutritional Appearance: well nourished Orientation/consciousness: patient oriented x3 HENMT Head: Yes normocephalic and Yes atraumatic Eyes General: appearance normal, both eyes and all related structures Pupils: Equal, round and reactive pupils present EOM: EOMs intact bilaterally Resp Effort & Inspection: normal respiratory effort Auscultation: clear to auscultation bilaterally Cardio Rate: regular rate Rhythm: regular rhythm Heart sounds: S1 normal heart sound present, S2 normal heart sound present, no gallops, no murmurs and no rubs GI Palpation (GI): No Abdominal aortic bruit present, Soft to palpation, nontender, No hepatosplenomegaly present and No Rebound tenderness present Auscultation: normal bowel sounds General: Yes no CVA tenderness Back/Spine/Pelvis Back: no CVA tenderness Cervical Spine: cervical ROM normal and No Cervical spine tenderness Thoracic/Lumbar Spine: thoraco-lumbar ROM normal, No pain with thoraco-lumbar ROM, No thoracic spinal tenderness and No lumbar spinal tenderness Extrem General: Yes normal to inspection, No edema and No calf tenderness Skin General: warm and dry. Normal skin color. Normal skin turgor Lesions: no lesions Rashes: no rashes Trauma: no lacerations or abrasions Wounds: no wounds Nails: normal Neuro General: patient oriented x3, gait normal and no focal neuro deficit Cranial nerves: Yes Equal, round and reactive pupils present Cognition (Neuro): normal cognition Gait exam (Neuro): Normal gait present Sensory Exam: No Sensory deficit (Neuro) Psych Appearance: grossly normal Affect: normal affect Attitude: cooperative Thought process: Normal thought process present Assessment and Plan Assessment & Plan (1) Hypertension: Code(s): I10 - Essential (primary) hypertension Plan: Resting blood pressure is 136/70, within goal of less than 140/90 Continue current treatment regimen Low-sodium diet encouraged Follow-up in 3 months or sooner with symptoms or concerns Verbalized understanding and agreed with the treatment plan Coding Level of Care Code Est Pt Level 3 (83122) Diagnoses Hypertension I10
[2024-03-31 15:28] VITALS: BP 142/78; PULSE 66; RESP 15; TEMP 36.4; O2SAT 97; BMI 25.1
[2024-03-31 15:43] VITALS: BP 136/70
== END 2024-03-31 15:49 | disposition home or self-care (01) ==
PROVIDERS: PCP Nurse Practitioner Family; Visit Provider Nurse Practitioner Family
DX: I10 Essential (primary) hypertension (principal)

== ENCOUNTER → 2024-03-31 15:24 | Outpatient (BNVA) | payer OTHER, SELFPAY | PROVIDERS: PCP Nurse Practitioner Family; Visit Provider Nurse Practitioner Family ==

== ENCOUNTER 2024-04-11 09:53 | Outpatient (AMB) | payer OTHER, SELFPAY ==
--- NOTE | 2024-04-11 09:57 | A.OFFPC_ITS ---
Vital Signs 04/11/24 10:01 Height 5 ft 7 in Weight 157 lb 6 oz BMI 24.6 BP 128/74 Blood Pressure Location Lt brachial Position Sitting Respiration 16 Pulse 69 Pulse Source Pulse Oximeter Temp 98.0 F Temp Source Oral Pulse Oximetry (%) 97 Oxygen Delivery Method Room Air Intake Visit Reasons: Body aches and tenderness in neck Intake Note: patient here c/o body aches and tenderness in neck for several weeks. 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 Allergies doxycycline Allergy (Mild, Verified 04/11/24 10:00) stomach problems cillins Allergy (Mild, Uncoded 03/31/24 15:32) Rash Tobacco use date assessed: 04/11/24 Dental Screening Dental Screen Date: 04/11/24 Did you have a dental visit in the last 12 months?: Yes Did you have a dental problem in the last 6 months where you did not have access to dental care?: No Was dental information given to patient?: Patient has dentist HPI HPI Comments History of Present Illness Details 63-year-old male presents with complaint s of intermittent muscles and joints aches, and neck tenderness for the past 3 weeks. His symptoms have progressively worsened and in the past 2 weeks, occurring daily. He denies constitutional symptoms. He admits to take vitamin D, vitamin K, multi vit, milk thistle, garlic, and fish oil, in addition to prescribed amlodipine and lisinopril. He denies walking in the [place] or on weeds. 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 Jacob Armstrong, Ann B.W. Kishore Johnson and colleagues, with an educational jada from [employer]. Review of Systems Const Details: Const Denies chills, Denies fatigue, Denies fever(s), Denies headache(s) and Denies weakness ENT Denies dizziness and Denies headache(s) Card Denies chest pain, Denies lightheadedness, Denies dyspnea and Denies other (Palpitations) Resp Denies cough, Denies dyspnea, Denies wheezing and Denies other ( shortness of breath) GI Denies abdominal pain, Denies melena, Denies hematochezia, Denies change in bowel habits, Denies dyspepsia and Denies nausea Denies hematuria and Denies dysuria Musc Reports as per HPI Skin/Breast Denies rash, Denies unusual bruising and Denies wounds Neuro Denies abnormal gait, Denies dizziness, Denies headache(s), Denies memory loss, Denies numbness, Denies Sensory deficit (Neuro), Denies tingling and Denies weakness Psych Denies anxiety, Denies depression, Denies memory loss Endo Denies cold intolerance, Denies fatigue, Denies heat intolerance, Denies polydipsia and Denies polyuria Aller/Immun Denies wheezing Physical exam (Primary Care) Vital Signs: Last Vital Signs Temp 98.0 F 04/11/24 10:01 Pulse 69 04/11/24 10:01 Resp 16 04/11/24 10:01 BP 128/74 04/11/24 10:01 Pulse Ox 97 04/11/24 10:01 Oxygen Delivery Method Room Air 04/11/24 10:01 BMI result Body Mass Index 24.6 Tobacco/Smoking Status: Tobacco use Status Tobacco use date assessed 04/11/24 04/11/24 10:04 Patient Tobacco Use Status Never used Tobacco 04/11/24 09:57 e-Cigarette/Vaping Use Never Used 04/11/24 09:57 Thrive Assessment: Date of Thrive Assessment Date Thrive assessed 10/19/23 04/11/24 09:57 Const Other: General: no acute distress and well developed Nutritional Appearance: well nourished Orientation/consciousness: patient oriented x3 HENMT Head: Yes normocephalic and Yes atraumatic Eyes General: appearance normal, both eyes and all related structures Pupils: Equal, round and reactive pupils present EOM: EOMs intact bilaterally Resp Effort & Inspection: normal respiratory effort Auscultation: clear to auscultation bilaterally Cardio Rate: regular rate Rhythm: regular rhythm Heart sounds: S1 normal heart sound present, S2 normal heart sound present, no gallops, no murmurs and no rubs GI Palpation (GI): No Abdominal aortic bruit present, Soft to palpation, nontender, No hepatosplenomegaly present and No Rebound tenderness present Auscultation: normal bowel sounds General: Yes no CVA tenderness Back/Spine/Pelvis Back: no CVA tenderness Cervical Spine: cervical ROM normal and No Cervical spine tenderness Thoracic/Lumbar Spine: thoraco-lumbar ROM normal, No pain with thoraco-lumbar ROM, No thoracic spinal tenderness and No lumbar spinal tenderness Extrem General: Yes normal to inspection, No edema and No calf tenderness Skin General: warm and dry. Normal skin color. Normal skin turgor Neuro General: patient oriented x3, gait normal and no focal neuro deficit Cranial nerves: Yes Equal, round and reactive pupils present Cognition (Neuro): normal cognition Gait exam (Neuro): Normal gait present Sensory Exam: No Sensory deficit (Neuro) Psych Appearance: grossly normal Affect: normal affect Attitude: cooperative Thought process: Normal thought process present Coding Level of Care Code Est Pt Level 4 (91939) Diagnoses Generalized body aches R52 Assessment & Plan Assessment & Plan (1) Generalized body aches: Code(s): R52 - Pain, unspecified Category: Medical Plan: Patient reports intermittent muscles and joints aches, and neck tenderness for the past 3 week. His symptoms have progressively worsened. No constitutional symptoms. He is on amlodipine, lisinopril. He also takes multiple supplements Normal physical Neuro exam Will check CBC, BMP, ESR, and Lyme titer and make changes as needed May take Tylenol ibuprofen for pain or discomfort Follow-up with worsening or new symptoms Verbalized understanding and agreed with the plan Orders: Orders Erythrocyte Sedimentation Rate Today R52 - Pain, unspecified Basic Metabolic Panel Today R52 - Pain, unspecified Lyme IgG/IgM w/reflex to WB Today R52 - Pain, unspecified Complete Blood Count Auto Diff Today R52 - Pain, unspecified
[2024-04-11 10:01] VITALS: BP 128/74; PULSE 69; RESP 16; TEMP 36.7; O2SAT 97; BMI 24.6
== END 2024-04-11 10:23 | disposition home or self-care (01) ==
PROVIDERS: PCP Nurse Practitioner Family; Visit Provider Nurse Practitioner Family
DX: R52 Pain, unspecified (principal)

== ENCOUNTER → 2024-04-11 09:53 | Outpatient (BNVA) | payer OTHER, SELFPAY | PROVIDERS: PCP Nurse Practitioner Family; Visit Provider Nurse Practitioner Family ==

== ENCOUNTER 2024-06-09 13:01 | Outpatient (AMB) | payer OTHER, SELFPAY ==
--- NOTE | 2024-06-09 13:05 | A.OFFPC_ITS ---
Vital Signs 06/09/24 13:11 06/09/24 13:28 Height 5 ft 7 in Weight 161 lb 6 oz BMI 25.3 BP 150/78 H 146/80 H Blood Pressure Location Rt brachial Lt brachial Position Sitting Sitting Respiration 16 Pulse 76 Pulse Source Pulse Oximeter Temp 97.5 F Temp Source Temporal Artery Scan Pulse Oximetry (%) 95 Oxygen Delivery Method Room Air Intake Visit Reasons: headache, fatigue Intake Note: patient here c/o headache and fatigue Patient Safety Tech Required: No Allergies doxycycline Allergy (Mild, Verified 06/09/24 13:19) stomach problems cillins Allergy (Mild, Uncoded 06/09/24 13:19) Rash Medication List - Last Reconciled 06/09/24 by Aakash George CNP amlodipine 2.5 mg PO DAILY 30 days lisinopril 5 mg PO DAILY 30 days Tobacco use date assessed: 06/09/24 Dental Screening Dental Screen Date: 06/09/24 Did you have a dental visit in the last 12 months?: Yes Did you have a dental problem in the last 6 months where you did not have access to dental care?: No Was dental information given to patient?: Patient has dentist HPI HPI Comments History of Present Illness Details The patient is a 64-year-old male presenting with concerns of a recent onset headache and fatigue, along with a query about elevated blood glucose levels. The headaches began approximately one week ago, characterized by a non- intense pain that migrates across the head, and occur daily. These headaches are atypical for the patient. Concurrently, the patient noted episodes of fatigue significant enough to occasionally require rest during travel to work. He attributed possible causes of these symptoms to the recent removal of an embedded tick from the right side of his abdomen on May 14, although no rash or specific symptoms at the site were noted. Additionally, the patient suspects developing a sinus infection, mentioning thick, yellow nasal mucus, though without typical sinus pressure or significant drainage. Furthermore, the patient's recent lab results indicated an elevated fasting blood glucose level of 122 mg/dL, categorized as prediabetic, although the patient did consume food prior to the test, potentially affecting the result. 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 Cognitive needs: No Hearing needs: No Vision needs: No Questionnaire Thrive Questionnaire Date Thrive assessed: 06/09/24 I am a: Patient What is your living situation today?: I have a steady place to live Within the past 12 months, did the food you bought not last and you didn't have the money to get more?: I choose not to answer this question Within the past 12 months, did you worry whether your food would run out before you got money to buy more?: Never true Do you have trouble paying for medicines?: No Do you have trouble getting transportation to medical appointments?: No Do you have trouble paying your heating and electricity bill?: No Do you have trouble taking care of your child, family member or friend?: No Do you have trouble with day-to-day activities such as bathing, preparing meals, shopping, managing finances, etc.?: No Are you currently unemployed and looking for a job?: Yes Are you interested in more education?: Yes Please select the resources that you would like help with: None Currently or been in a relationship where the following occur: No concerns reported THRIVE Score: 0 AUDIT C Alcohol Use Questionnaire (AUDIT-C) 1. How often do you have a drink containing alcohol?: 2-4 times a month Total Score: 2 JASWINDER-7 AMB Questionnaire JASWINDER-7 Date JASWINDER - 7 assessed: 10/19/23 Feeling nervous, anxious, or on edge: 0 = Not at all Not being able to stop or control worryin = Not at all Worrying too much about different things: 0 = Not at all Trouble relaxin = Not at all Being so restless that it is hard to sit still: 0 = Not at all Becoming easily annoyed or irritable: 0 = Not at all Feeling afraid as if something awful might happen: 0 = Not at all Total JASWINDER-7 score (0-4 normal; 5-9 mild; 10-14 moderate; 15-21 severe): 0 Source: Developed by Drs. Jacob Armstrong, Ann Johnson, Kishore Cruz and colleagues, with an educational jada from [employer]. Review of Systems Const Details: Const Denies chills, Denies fatigue, Denies fever(s), Denies headache(s) and Denies weakness ENT Denies dizziness and Denies headache(s) Card Denies chest pain, Denies lightheadedness, Denies dyspnea and Denies other (Palpitations) Resp Denies cough, Denies dyspnea, Denies wheezing and Denies other ( shortness of breath) GI Denies abdominal pain, Denies melena, Denies hematochezia, Denies change in bowel habits, Denies dyspepsia and Denies nausea Denies hematuria and Denies dysuria Musc Denies abnormal gait, Denies myalgias, Denies arthralgias, Denies numbness and Denies tingling Skin/Breast Denies rash, Denies unusual bruising and Denies wounds Neuro Denies abnormal gait, Denies dizziness, Denies headache(s), Denies memory loss, Denies numbness, Denies Sensory deficit (Neuro), Denies tingling and Denies weakness Psych Denies anxiety, Denies depression, Denies memory loss Endo Denies cold intolerance, Denies fatigue, Denies heat intolerance, Denies kenney ydipsia and Denies polyuria Aller/Immun Denies wheezing Physical exam (Primary Care) Vital Signs: Last Vital Signs Temp 97.5 F 06/09/24 13:11 Pulse 76 06/09/24 13:11 Resp 16 06/09/24 13:11 BP 150/78 H 06/09/24 13:11 Pulse Ox 95 06/09/24 13:11 Oxygen Delivery Method Room Air 06/09/24 13:11 BMI result Body Mass Index 25.3 Tobacco/Smoking Status: Tobacco use Status Tobacco use date assessed 06/09/24 06/09/24 13:14 Patient Tobacco Use Status Never used Tobacco 06/09/24 13:07 e-Cigarette/Vaping Use Never Used 06/09/24 13:07 Thrive Assessment: Date of Thrive Assessment Date Thrive assessed 06/09/24 06/09/24 13:07 Currently or been in a relationship where the following occur: No concerns reported Const Other: General: no acute distress and well developed Nutritional Appearance: well nourished Orientation/consciousness: patient oriented x3 [facility] Head: Yes normocephalic and Yes atraumatic Eyes General: appearance normal, both eyes and all related structures Pupils: Equal, round and reactive pupils present EOM: EOMs intact bilaterally Resp Effort & Inspection: normal respiratory effort Auscultation: clear to auscultation bilaterally Cardio Rate: regular rate Rhythm: regular rhythm Heart sounds: S1 normal heart sound present, S2 normal heart sound present, no gallops, no murmurs and no rubs GI Palpation (GI): No Abdominal aortic bruit present, Soft to palpation, nontender, No hepatosplenomegaly present and No Rebound tenderness present Auscultation: normal bowel sounds General: Yes no CVA tenderness Back/Spine/Pelvis Back: no CVA tenderness Cervical Spine: cervical ROM normal and No Cervical spine tenderness Thoracic/Lumbar Spine: thoraco-lumbar ROM normal, No pain with thoraco-lumbar ROM, No thoracic spinal tenderness and No lumbar spinal tenderness Extrem General: Yes normal to inspection, No edema and No calf tenderness Skin General: warm and dry. Normal skin color. Normal skin turgor Lesions: no lesions Rashes: no rashes, no tick noted Trauma: no lacerations or abrasions Wounds: no wounds Nails: normal Neuro General: patient oriented x3, gait normal and no focal neuro deficit Cranial nerves: Yes Equal, round and reactive pupils present Cognition (Neuro): normal cognition Gait exam (Neuro): Normal gait present Sensory Exam: No Sensory deficit (Neuro) Psych Appearance: grossly normal Affect: normal affect Attitude: cooperative Thought process: Normal thought process present Coding Level of Care Code Est Pt Level 4 (87260) Diagnoses Viral upper respiratory illness J06.9 Elevated glucose R73.09 Hypertension I10 Assessment & Plan Assessment & Plan (1) Viral upper respiratory illness: Code(s): J06.9 - Acute upper respiratory infection, unspecified Category: Medical Plan: Likely viral illness though possibly allergies. No exam evidence of bacterial infection Viral illness There is no antibiotic medication for viruses.? They must run their course.? Most average 5-7 days but 7-10 days is not uncommon and up to 14 days is still possible.? A cough is often the last symptom to resolve and this can last for weeks in some cases. Rest Hydrate well -? Drink plenty of fluids.? Especially water. Tylenol or ibuprofen for muscle aches, headache, fever/discomfort Cannot rule out COVID-19/RSV/Flu infection Nasal swab acquired and will be sent to the lab Return for new or worsening symptoms Verbalized understanding and agreed with treatment plan. (2) Elevated glucose: Code(s): R73.09 - Other abnormal glucose Category: Medical Plan: Recommend a repeat fasting glucose test after a 10-12 hour fast to confirm blood glucose levels. (3) Hypertension: Code(s): I10 - Essential (primary) hypertension Category: Medical Plan: Continue current antihypertensive medications; maintain low sodium diet; reassess at the next scheduled visit. Plan During the visit, I discussed the differential diagnosis for the symptoms presented, including the possibility of a viral illness explaining both the headache and fatigue. I highlighted the importance of hydration and rest, and explained that [id number] analgesics could be used if headaches persist. We reviewed the previous lab work documenting elevated fasting glucose levels, and I explained the need to conduct a repeat test to confirm prediabetes status, emphasizing the importance of fasting prior to the test. I also offered reassurance regarding the tick bite, given the negative Lyme disease test. Safety measures including low sodium intake were also reinforced, with a plan to reassess blood pressure management at the next visit. We consented to test for COVID-19, flu, and RSV given current symptoms and the potential for an underlying viral illness. Orders: Orders Glucose Fasting Today R73.09 - Other abnormal glucose SARS-CoV2/FLU/RSV Today J06.9 - Acute upper respiratory infection, unspecified Patient Instructions: - Stay well-hydrated and rest as needed. - Use acetaminophen or ibuprofen if headaches return. - Maintain a low sodium diet and monitor blood pressure. - Follow up with fasting glucose test after 10-12 hour fast for accurate results. - Monitor for persistence or progression of symptoms and return promptly if concerned. - Await results for COVID-19, flu, and RSV tests and adhere to any further instructions given based on these results. Patient was informed and verbally consented to the use of an ambient scribe for clinic note documentation during this visit.
[2024-06-09 13:11] VITALS: BP 150/78; PULSE 76; RESP 16; TEMP 36.4; O2SAT 95; BMI 25.3
[2024-06-09 13:28] VITALS: BP 146/80
== END 2024-06-09 13:36 | disposition home or self-care (01) ==
PROVIDERS: PCP Nurse Practitioner Family; Visit Provider Nurse Practitioner Family
DX: J06.9 Acute upper respiratory infection, unspecified (principal); R73.09 Other abnormal glucose; I10 Essential (primary) hypertension

== ENCOUNTER 2024-06-09 13:01 | Outpatient (REF) | payer OTHER, SELFPAY ==
[2024-06-09 19:00] LABS: Influenza A PCR NEGATIVE (Negative); Influenza B PCR NEGATIVE (Negative); Resp Syncy Virus RNA Qual PCR NEGATIVE (Negative); SARS COV2 PCR INHOUSE NEGATIVE (Negative)
== END 2024-06-09 13:02 | disposition home or self-care (01) ==
LOC: HO.LAB 13:01
PROVIDERS: PCP Nurse Practitioner Family; Visit Provider Nurse Practitioner Family
DX: J06.9 Acute upper respiratory infection, unspecified (principal); R73.09 Other abnormal glucose; I10 Essential (primary) hypertension
CPT/HCPCS: 0241U

== ENCOUNTER 2024-08-08 13:46 | Outpatient (AMB) ==
--- NOTE | 2024-08-08 13:51 | MHC.PC.OV ---
Vital Signs 08/08/24 13:56 08/08/24 14:17 Height 5 ft 7 in Weight 168 lb 6 oz BMI 26.4 BP 158/82 H 146/90 H Blood Pressure Location Rt brachial Lt brachial Position Sitting Sitting Respiration 16 Pulse 68 Pulse Source Pulse Oximeter Temp 98.1 F Temp Source Oral Pulse Oximetry (%) 97 Oxygen Delivery Method Room Air Intake Visit Reasons: 3 mos HTN Intake Note: regla brambila follow up on HTN Respiratory Therapy Aide Required: No Allergies doxycycline Allergy (Mild, Verified 08/08/24 14:12) stomach problems cillins Allergy (Mild, Uncoded 08/08/24 14:12) Rash Medication List - Last Reconciled 08/08/24 by Aakash George CNP amlodipine 2.5 mg PO DAILY 30 days lisinopril 5 mg PO DAILY 30 days Tobacco use date assessed: 08/08/24 Dental Screening Dental Screen Date: 08/08/24 Did you have a dental visit in the last 12 months?: Yes Did you have a dental problem in the last 6 months where you did not have access to dental care?: No Was dental information given to patient?: Patient has dentist HPI HPI Comments History of Present Illness Details 64 -year-old male presents for hypertension follow-up. He admits to taking amlodipine 2.5 mg daily and lisinopril 5 mg daily without adverse reactions. He notes that since 06/2024 he has been consuming a lot of carbs. He gained 7 lb since his last visit. He goes for long walks daily. He offers no complaints and denies acute symptoms at this time. His last fasting glucose was 122. Repeat fasting glucose was ordered. He notes that he had fasting glucose blood work done with [facility]. However, those results are available in his [facility] chart or [facility] portal. He will obtain the lab result and provide to his PCP. 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 1. Little interest or pleasure in doing things: not at all 2. Feeling down, depressed, or hopeless: not at all 3. Trouble falling or staying asleep, or sleeping too much: several days 4. Feeling tired or having little energy: several days 5. Poor appetite or overeating: not at all 6. Feeling bad about yourself - or that you are a failure or have let yourself or your family down: not at all 7. Trouble concentrating on things, such as reading the newspaper or watching television: not at all 8. Moving or speaking so slowly that other people could have noticed. Or the opposite - being so fidgety or restless that you have been moving around a lot more than usual: not at all 9. Thoughts that you would be better off or of hurting yourself in some way: not at all Total score: 2 Depression Screening Interpretation: Negative Depression Screening Done: Yes Source: Developed by Drs. Jacob Armstrong, Ann Johnson, Kishore Crzu and colleagues, with an educational jada from [employer]. Thrive Questionnaire Date Thrive assessed: 08/07/24 I am a: Patient What is your living situation today?: I have a steady place to live Within the past 12 months, did the food you bought not last and you didn't have the money to get more?: Never true Within the past 12 months, did you worry whether your food would run out before you got money to buy more?: Never true Do you have trouble paying for medicines?: No Do you have trouble getting transportation to medical appointments?: No Do you have trouble paying your heating and electricity bill?: No Do you have trouble taking care of your child, family member or friend?: No Do you have trouble with day-to-day activities such as bathing, preparing meals, shopping, managing finances, etc.?: No Are you currently unemployed and looking for a job?: No Are you interested in more education?: No Please select the resources that you would like help with: None Currently or been in a relationship where the following occur: No concerns reported THRIVE Score: 0 JASWINDER-7 AMB Questionnaire JASWINDER-7 Date JASWINDER - 7 assessed: 10/19/23 Source: Developed by Drs. Jacob Armstrong, Ann Johnson, Kishore Cruz and colleagues, with an educational jada from [employer]. Review of Systems Const Details: Const Denies chills, Denies fatigue, Denies fever(s), Denies headache(s) and Denies weakness ENT Denies dizziness and Denies headache(s) Card Denies chest pain, Denies lightheadedness, Denies dyspnea and Denies other (Palpitations) Resp Denies cough, Denies dyspnea, Denies wheezing and Denies other ( shortness of breath) GI Denies abdominal pain, Denies melena, Denies hematochezia, Denies change in bowel habits, Denies dyspepsia and Denies nausea Denies hematuria and Denies dysuria Musc Denies abnormal gait, Denies myalgias, Denies arthralgias, Denies numbness and Denies tingling Skin/Breast Denies rash, Denies unusual bruising and Denies wounds Neuro Denies abnormal gait, Denies dizziness, Denies headache(s), Denies memory loss, Denies numbness, Denies Sensory deficit (Neuro), Denies tingling and Denies weakness Psych Denies anxiety, Denies depression, Denies memory loss Endo Denies cold intolerance, Denies fatigue, Denies heat intolerance, Denies polydipsia and Denies polyuria Aller/Immun Denies wheezing Physical exam (Primary Care) Tobacco/Smoking Status: Tobacco use Status Tobacco use date assessed 06/09/24 08/08/24 13:52 Patient Tobacco Use Status Never used Tobacco 08/08/24 13:52 e-Cigarette/Vaping Use Never Used 08/08/24 13:52 PHQ-9: PHQ-9 Score PHQ-9: Total score 2 08/08/24 13:52 Depression Screening Interpretation: Negative Thrive Assessment: Date of Thrive Assessment Date Thrive assessed 08/07/24 08/08/24 13:52 Currently or been in a relationship where the following occur: No concerns reported Const Other: General: no acute distress and well developed Nutritional Appearance: well nourished Orientation/consciousness: patient oriented x3 [facility] Head: Yes normocephalic and Yes atraumatic Eyes General: appearance normal, both eyes and all related structures Pupils: Equal, round and reactive pupils present EOM: EOMs intact bilaterally Resp Effort & Inspection: normal respiratory effort Auscultation: clear to auscultation bilaterally Cardio Rate: regular rate Rhythm: regular rhythm Heart sounds: S1 normal heart sound present, S2 normal heart sound present, no gallops, no murmurs and no rubs GI Palpation (GI): No Abdominal aortic bruit present, Soft to palpation, nontender, No hepatosplenomegaly present and No Rebound tenderness present Auscultation: normal bowel sounds General: Yes no CVA tenderness Back/Spine/Pelvis Back: no CVA tenderness Cervical Spine: cervical ROM normal and No Cervical spine tenderness Thoracic/Lumbar Spine: thoraco-lumbar ROM normal, No pain with thoraco-lumbar ROM, No thoracic spinal tenderness and No lumbar spinal tenderness Extrem General: Yes normal to inspection, No edema and No calf tenderness Skin General: warm and dry. Normal skin color. Normal skin turgor Neuro General: patient oriented x3, gait normal and no focal neuro deficit Cranial nerves: Yes Equal, round and reactive pupils present Cognition (Neuro): normal cognition Gait exam (Neuro): Normal gait present Sensory Exam: No Sensory deficit (Neuro) Psych Appearance: grossly normal Affect: normal affect Attitude: cooperative Thought process: Normal thought process present Coding Level of Care Code Est Pt Level 4 (63338) Diagnoses Hypertension I10 Elevated glucose R73.09 Assessment & Plan Assessment & Plan (1) Hypertension: Code(s): I10 - Essential (primary) hypertension Category: Medical Plan: Resting blood pressure is 146/90, slightly above goal of less 146/90. Will increase Lisinopril to 10 mg daily; take as prescribed. Continue to take Amlodipine 2.5 mg daily. Low sodium diet encouraged Follow up in 1 month or sooner with symptoms or concerns. Verbalized understanding and agreed with the treatment plan. (2) Elevated glucose: Code(s): R73.09 - Other abnormal glucose Category: Medical Plan: Recent fasting glucose is 122. Repeat glucose results not available. He will obtain result and provide to his PCP. Healthy diet, including limiting carbs, and routine exercise encouraged. Will review recent fasting glucose results and make changes as needed. Verbalized understanding and agreed with treatment plan. Medications: New lisinopril 10 mg PO DAILY 30 days 30 tabs 3RF Discontinued lisinopril Discontinued Reason: Doctor's Order 5 mg PO DAILY 30 days 30 tabs 3RF
[2024-08-08 14:17] VITALS: BP 146/90
== END 2024-08-08 14:31 | disposition home or self-care (01) ==
DX: I10 Essential (primary) hypertension (principal); R73.09 Other abnormal glucose

== ENCOUNTER → 2024-08-08 13:46 | Outpatient (BNVA) | payer OTHER, SELFPAY | PROVIDERS: PCP Nurse Practitioner Family; Visit Provider Nurse Practitioner Family ==

== ENCOUNTER 2024-09-30 09:54 | Outpatient (AMB) | payer OTHER, SELFPAY ==
--- NOTE | 2024-09-30 09:56 | MHC.PC.OV ---
Vital Signs 09/30/24 10:01 Height 5 ft 7 in Weight 167 lb 2 oz BMI 26.2 BP 130/73 Blood Pressure Location Rt brachial Position Sitting Respiration 16 Pulse 67 Pulse Source Pulse Oximeter Temp 98.0 F Temp Source Oral Pulse Oximetry (%) 98 Oxygen Delivery Method Room Air Intake Visit Reasons: 1 mos HTN, reschedule Intake Note: patient here for 1month follow up on HTN Band Bias Machine Operator Required: No Allergies doxycycline Allergy (Mild, Verified 09/30/24 10:08) stomach problems cillins Allergy (Mild, Uncoded 09/30/24 10:08) Rash Medication List - Last Reconciled 09/30/24 by Aakash George CNP amlodipine 2.5 mg PO DAILY 30 days lisinopril 10 mg PO DAILY 30 days Tobacco use date assessed: 09/30/24 Dental Screening Dental Screen Date: 09/30/24 Did you have a dental visit in the last 12 months?: Yes Did you have a dental problem in the last 6 months where you did not have access to dental care?: No Was dental information given to patient?: Patient has dentist HPI HPI Comments History of Present Illness Details 64-year-old male presents for hypertension and elevated fasting glucose follow-up. He admits to taking his medications as prescribed without adverse reactions. No acute symptoms at this time. 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 Cognitive needs: No Hearing needs: No Vision needs: No Questionnaire Thrive Questionnaire Date Thrive assessed: 08/07/24 I am a: Patient What is your living situation today?: I have a steady place to live Within the past 12 months, did the food you bought not last and you didn't have the money to get more?: Never true Within the past 12 months, did you worry whether your food would run out before you got money to buy more?: Never true Do you have trouble paying for medicines?: No Do you have trouble getting transportation to medical appointments?: No Do you have trouble paying your heating and electricity bill?: No Do you have trouble taking care of your child, family member or friend?: No Do you have trouble with day-to-day activities such as bathing, preparing meals, shopping, managing finances, etc.?: No Are you currently unemployed and looking for a job?: No Are you interested in more education?: No Please select the resources that you would like help with: None Currently or been in a relationship where the following occur: No concerns reported THRIVE Score: 0 JASWINDER-7 AMB Questionnaire JASWINDER-7 Date JASWINDER - 7 assessed: 10/19/23 Source: Developed by Drs. Jacob Armstrong, Ann Johnson, Kishore Cruz and colleagues, with an educational jada from [employer]. Review of Systems Const Details: Const Denies chills, Denies fatigue, Denies fever(s), Denies headache(s) and Denies weakness ENT Denies dizziness and Denies headache(s) Card Denies chest pain, Denies lightheadedness, Denies dyspnea and Denies other (Palpitations) Resp Denies cough, Denies dyspnea, Denies wheezing and Denies other ( shortness of breath) GI Denies abdominal pain, Denies melena, Denies hematochezia, Denies change in bowel habits, Denies dyspepsia and Denies nausea Denies hematuria and Denies dysuria Musc Denies abnormal gait, Denies myalgias, Denies arthralgias, Denies numbness and Denies tingling Skin/Breast Denies rash, Denies unusual bruising and Denies wounds Neuro Denies abnormal gait, Denies dizziness, Denies headache(s), Denies memory loss, Denies numbness, Denies Sensory deficit (Neuro), Denies tingling and Denies weakness Psych Denies anxiety, Denies depression, Denies memory loss Endo Denies cold intolerance, Denies fatigue, Denies heat intolerance, Denies polydipsia and Denies polyuria Aller/Immun Denies wheezing Physical exam (Primary Care) Tobacco/Smoking Status: Tobacco use Status Tobacco use date assessed 08/08/24 08/08/24 13:58 Patient Tobacco Use Status Never used Tobacco 08/08/24 13:52 e-Cigarette/Vaping Use Never Used 08/08/24 13:52 Thrive Assessment: Date of Thrive Assessment Date Thrive assessed 08/07/24 08/08/24 13:52 Currently or been in a relationship where the following occur: No concerns reported Const Other: General: no acute distress and well developed Nutritional Appearance: well nourished Orientation/consciousness: patient oriented x3 HENMT Head: Yes normocephalic and Yes atraumatic Eyes General: appearance normal, both eyes and all related structures Pupils: Equal, round and reactive pupils present EOM: EOMs intact bilaterally Resp Effort & Inspection: normal respiratory effort Auscultation: clear to auscultation bilaterally Cardio Rate: regular rate Rhythm: regular rhythm Heart sounds: S1 normal heart sound present, S2 normal heart sound present, no gallops, no murmurs and no rubs GI Palpation (GI): No Abdominal aortic bruit present, Soft to palpation, nontender, No hepatosplenomegaly present and No Rebound tenderness present Auscultation: normal bowel sounds General: Yes no CVA tenderness Back/Spine/Pelvis Back: no CVA tenderness Cervical Spine: cervical ROM normal and No Cervical spine tenderness Thoracic/Lumbar Spine: thoraco-lumbar ROM normal, No pain with thoraco-lumbar ROM, No thoracic spinal tenderness and No lumbar spinal tenderness Extrem General: Yes normal to inspection, No edema and No calf tenderness Skin General: warm and dry. Normal skin color. Normal skin turgor Neuro General: patient oriented x3, gait normal and no focal neuro deficit Cranial nerves: Yes Equal, round and reactive pupils present Cognition (Neuro): normal cognition Gait exam (Neuro): Normal gait present Sensory Exam: No Sensory deficit (Neuro) Psych Appearance: grossly normal Affect: normal affect Attitude: cooperative Thought process: Normal thought process present Coding Level of Care Code Est Pt Level 3 (56645) Diagnoses Hypertension I10 Elevated glucose R73.09 Hyperlipidemia E78.5 Assessment & Plan Assessment & Plan (1) Hypertension: Code(s): I10 - Essential (primary) hypertension Category: Medical Plan: Blood pressure today is 130/73, within goal of less than 140/90. Continue current treatment regimen. Will continue to monitor. Verbalized understanding and agreed with treatment plan. (2) Elevated glucose: Code(s): R73.09 - Other abnormal glucose Category: Medical Plan: Recent fasting glucose in the patient's health portal from [employer] (on his cell phone) on 09/27/2024 was 84. (3) Hyperlipidemia: Code(s): E78.5 - Hyperlipidemia, unspecified Category: Medical Plan: Recent Triglycerides, total cholesterol, and LDL levels in the patient's health portal from [employer] (on his cell phone) on 09/13/2023 were slightly elevated, 217, 167, and 144 respectively. Advised to limit foods high in saturated fat and avoid foods high in trans fats. Routine exercise encouraged. Will recheck fasting glucose in 3 months. Follow-up for an extended physical exam in a month or return sooner with symptoms or concerns. Verbalized understanding and agreed with the plan. Orders: Orders Lipid Panel 3 Months E78.5 - Hyperlipidemia, unspecified
[2024-09-30 10:01] VITALS: BP 130/73; PULSE 67; RESP 16; TEMP 36.7; O2SAT 98; BMI 26.2
--- OUTSIDE RECORDS SUMMARY | 2024-09-30 11:34 | XMS_ITS | Encounter Summary ---
Author Organization [employer] Address [address] [place] [address] Care Team Providers Care Life Skills Instructor Name Role Phone Unavailable Primary Care Provider Unavailabl e Encounter Details Date Type Department Care Team (Latest Contact Info) Description 05/15/2019 Hospital Encounter [facility] Internal Medicine and Pediatrics [address] [place] [address] Zac Davidson, GRAIN PACKER [address] [place] [address] Unspecified abdominal pain Social History Tobacco Use Types Packs/Day Years Used Date Smoking Tobacco: Never Smokeless Tobacco: Never Alcohol Use Standard Drinks/Week Comments Not Currently 0 (1 standard drink = 0.6 oz pur e alcohol) Housing Instability Answer Date Recorde d Are you worried that in the next 2 months you may not have stable housing? No 08/31/2021 Food Access & Nutrition Answer Date Rec orded Do you have access to a vari ety of food including fruits and vegetables? Yes 08/31/2021 Financial Risk Answer Date Recorded How hard is it for you to pa y for the very basics like food, housing, medical care, and air conditioning / heating? Not very hard 08/31/2021 Transportation Answer Date Recorded Has the lack of transportati on kept you from meetings, work, or from getting things needed for daily living? No Has the lack of transportati on kept you from medical appointments or from getting medications? No 08/31/2021 Social Isolation Answer Date Recorded How often do you feel lonely or isolated from th ose around you? Never 08/31/2021 Food Risk Answer Date Recorded Within the past 12 months we worried whether our food would run out before we got money to buy more. Never true 08/31/2021 Within the past 12 months th e food we bought just didn't last and we didn't have money to get more. Never true 08/31/2021 [facility] Answer Date Re corded How often do you need to hav e someone help you when you read instructions, pamphlets, or other written material from your doctor or pharmacy? Never 08/31/2021 Caregiver: How often do you need to have someone help you when you read instructions, pamphlets, or other written material from your doctor or pharmacy? Never 08/31/2021 Sex and Gender Information Value Date Recorded Sex Assigned at Male 02/21/2022 9:37 AM EDT Legal Sex Male 5:00 PM EDT Gender Identity Male 02/21/2022 9:37 AM EDT Sexual Orientation Straight 02/21/2022 9: 37 AM EDT COVID-19 Exposure Response Date Recorded In the last 10 days, have yo u been in contact with someone who was confirmed or suspected to have Coronavirus/COVID-19? No / Unsure 06/15/2022 8:52 AM EST documented as of this encounter Plan of Treatment Not on file documented as of this encounter Visit Diagnoses Diagnosis Unspecified abdominal pain documented in this encounter
--- OUTSIDE RECORDS SUMMARY | 2024-09-30 11:34 | XMS_ITS | Encounter Summary ---
Author Organization [employer] Address [address] [place] [address] Care Team Providers Care Fabrication Manager Name Role Phone Unavailable Primary Care Provider Unavailabl e Encounter Details Date Type Department Care Team (Latest Contact Info) Description 08/11/[address] [facility] Internal Medicine and Pediatrics [address] [place] [address] Zac Davidson, ALLERGIST IMMUNOLOGIST [address] [place] [address] Mixed hyperlipidemia Social History Tobacco Use Types Packs/Day Years [...] money to get more. Never true 08/31/2021 [facility] Answer Date Re corded How [...] as of this encounter Visit Diagnoses Diagnosis Mixed hyperlipidemia documented in this encounter
--- OUTSIDE RECORDS SUMMARY | 2024-09-30 11:34 | XMS_ITS | Encounter Summary ---
Author Organization [facility] Address [address] [place] [address] Care Team Providers Care General Laborer Name Role Phone Unavailable Primary Care Provider Unavailabl e Encounter Details Date Type Department Care Team (Latest Contact Info) Description 05/30/2019 Hospital Encounter [facility] Internal Medicine and Pediatrics [address] [place] [address] Zac Davidson, SLITTER OPERATOR [address] [place] [address] Unspecified symptoms and signs involving the genitourinary system Social History Tobacco Use Types Packs/Day Years [...] money to get more. Never true 08/31/2021 [facility] Answer Date Re corded How [...] of this encounter Visit Diagnoses Diagnosis Unspecified symptoms and signs involving the genitourinary system documented in this encounter
--- OUTSIDE RECORDS SUMMARY | 2024-09-30 11:34 | XMS_ITS | Encounter Summary ---
Author Organization [facility] Address [address] [place] [address] Care Team Providers Care Manager Managed Care Name Role Phone Unavailable Primary Care Provider Unavailabl e Encounter Details Date Type Department Care Team (Latest Contact Info) Description 03/28/2019 Hospital Encounter [facility] CONVERSION ONLY Flip Gillespie MD [address] [place] [address] Hydronephrosis with renal and ureteral calculous obstruction Social History Tobacco Use Types Packs/Day Years [...] money to get more. Never true 08/31/2021 [facility] Answer Date Re corded How [...] on file documented as of this encounter Procedures Procedure Name Priority Date/Time Associated Diagnosis Comments CHEST AP - PORTABLE ([id number]) Routine 03/28/2019 10:04 AM EDT ABDOMEN-SUPINE/KUB- PORTABLE ([id number]) Routine 03/28/2019 10:02 AM EDT documented in this encounter Results * CHEST AP - PORTABLE ([id number]) (03/28/2019 10:04 AM EDT) Anatomical Region Laterality Modality Radiographic Maribel ging 03/28/2019 9:54 AM EDT Narrative 03/28/2019 10:05 AM EDT EXAMINATION: [phone] - CR CHEST AP-PORTABLE WORKING DIAGNOSIS: ?? pre op Comparison: 08/09/2014 Lungs:Minimal reticular scar/atelectasis lung bases. ??No consolidating airspace disease or congestive heart failure. Heart And Mediastinum:Heart and mediastinal contours within normal limits. Pleura:No pleural effusion. No pneumothorax. Lines And Tubes:None. OTHER: None. IMPRESSION: Minimal reticular scar/atelectasis lung bases INTERPRETED BY: ?? IRWIN THAYER MD ??on ??Mar 28 2019 ??9:54A Transcribed by: ??on Mar 28 2019 ??9:54A Approved Electronically by: IRWIN THAYER MD on Mar 28 2019 10:02A Procedure Note Irwin Thayer MD - 07/09/2020 EXAMINATION: [id number] - KE CHEST AP-PORTABLE WORKING DIAGNOSIS: pre op Comparison: 08/09/2014 Lungs:Minimal reticular scar/atelectasis lung bases. No consolidating airspace disease or congestive heart failure. Heart And Mediastinum:Heart and mediastinal contours within normallimits. Pleura:No pleural effusion. No pneumothorax. Lines And Tubes:None. OTHER: None. IMPRESSION: Minimal reticular scar/atelectasis lung bases INTERPRETED BY: IRWIN THAYER MD on Mar 28 2019 9:54A Transcribed by: on Mar 28 2019 9:54A Approved Electronically by: IRWIN THAYER MD on Mar 28 2019 10:02A Flip Gillespie MD IMG XR PROCEDURES Final Result * ABDOMEN-SUPINE/KUB-PORTABLE ([id number]) (03/28/2019 10:02 AM EDT) Anatomical Region Laterality Modality Radiographic Maribel ging 03/28/2019 9:14 AM EDT Narrative 03/28/2019 10:02 AM EDT EXAMINATION: [phone] - RO SUPINE ABDOMEN-PORTABLE WORKING DIAGNOSIS: ?? Pre OP Nonspecific, nonobstructive abdominal gas pattern. ??No overt free air. ?? Questionable calculus in the region of the right UPJ IMPRESSION:: 1. ??Questionable 9 mm ovoid calculus in right UPJ 2. ??Nonspecific, nonobstructive abdominal gas pattern INTERPRETED BY: ?? IRWIN THAYER MD ??on ??Mar 28 2019 ??9:14A Transcribed by: ??on Mar 28 2019 ??9:14A Approved Electronically by: IRWIN THAYER MD on Mar 28 2019 10:00A Procedure Note rIwin Thayer MD - 07/09/2020 EXAMINATION: [id number] - CR SUPINE ABDOMEN-PORTABLE WORKING DIAGNOSIS: Pre OP Nonspecific, nonobstructive abdominal gas pattern. No overt free air. Questionable calculus in the region of the right UPJ IMPRESSION:: 1. Questionable 9 mm ovoid calculus in right UPJ 2. Nonspecific, nonobstructive abdominal gas pattern INTERPRETED BY: IRWIN THAYER MD on Mar 28 2019 9:14A Transcribed by: on Mar 28 2019 9:14A Approved Electronically by: IRWIN THAYER MD on Mar 28 2019 10:00A Flip Gillespie MD IMG XR PROCEDURES Final Result documented in this encounter Visit Diagnoses Diagnosis Hydronephrosis with renal and ureteral calculous obstruction documented in this encounter
--- OUTSIDE RECORDS SUMMARY | 2024-09-30 11:34 | XMS_ITS | Clinical Summary ---
Author Organization [address] [place] [address] [place] [phone] Phone Care Team Providers Care Assisted Living Administrator Name Role Phone Ryan Rocha MD Primary Care Provider Allergies Active Allergy Reactions Criticality Noted Date Comments Ampicillin Rash,Nausea Only Atorvastatin Cefuroxime 06/15/2022 Other reaction(s): Unknown Clindamycin unsure reaction Doxycycline Fenofibrate Pain Myalgias/muscle pain Latex Rash 06/15/2022 Metronidazole unsure Other reaction(s): Unknown Penicillins Rash Pravastatin Other,Pain Tetracyclines Pain 06/15/2022 Ezetimibe Medications lisinopril (PRINIVIL,ZESTRIL ) 40 mg tabletIndications :Essential hypertension Take 0.5 tablets (20 mg total) by mouth 1 (one) time each day. 1/2 tab daily 45 each 3 2 Active amLODIPine (NORVASC) 5 mg tablet Take 1 tablet (5 mg total) by mouth 1 (one) time each day. 3 Active Active Problems Problem Noted Date Diagnosed Date Fatty liver 06/11/2023 Pain of submandibular gland 06/11/2023 Primary localized osteoarthritis of pelvic regio n and thigh 06/11/2023 Sialoadenitis 06/11/2023 Throat symptom 06/11/2023 Lumbosacral radiculopathy 01/04/2022 Dyspnea 03/17/2021 Balanitis 03/17/2021 Abdominal pain 03/17/2021 Testis mass 03/17/2021 Assessment & Plan (11/17/2021 10:47 PM EDT): Patient with an incidental 0.3 cm indeterminate left testis mass. ?? This was nonpalpable on exam. ?? Follow-up scrotal ultrasound is unchanged. ?? Baseline alpha-fetoprotein is normal. Beta hCG was not done. ?? We discussed care options. At this time we will continue his surveillance to 6 months. I feel he is low risk. Assessment & Plan (05/16/2021 2:28 PM EST): Patient with an incidental 0.3 cm indeterminate left testis mass. This was nonpalpable on exam. Follow-up scrotal ultrasound is unchanged. The lesion is stable in size. No demonstrable blood flow is identified. Baseline alpha-fetoprotein is normal. Beta hCG was not done. We discussed care options. At this time we will advance his surveillance to 6 months. I have reordered tumor markers. I feel he is low risk. Assessment & Plan (03/17/2021 9:30 AM EDT): Patient presents with an incidental 0.3 x 0.3 x 0.3 cm left testis mass. This is indeterminate. No significant finding on physical exam today. We have discussed management options. I recommended we check tumor markers. We discussed MRI for further evaluation, although given the small size this may be of limited value. In addition we discussed reimaging in the upcoming months to assess for change. He appears to be good understanding. We will proceed with tumor markers and a follow-up ultrasound early May. Spermatocele of epididymis, unspecified 03/17/20 Assessment & Plan (11/17/2021 10:49 PM EDT): Right spermatocele again see on exam. Ultrasound suggested hydrocele - though not appreciated. Discussed management options. These would include observation versus surgical correction. Given he is not troubled we have elected for observation. Assessment & Plan (05/16/2021 2:28 PM EST): Patient with bilateral epididymal head cysts. These remain asymptomatic. We discussed care options including surgical correction versus observation. He elects for the latter. Assessment & Plan (03/17/2021 9:29 AM EDT): Patient presents with a right spermatocele ultrasound. This is confirmed on exam. We discussed management options. These would include observation versus surgical correction. I have offered him some supportive measures. At this time he is elected for observation. We will plan to reassess in the upcoming months at the time of his follow-up ultrasound. BMI 28.0-28.9,adult 03/17/2021 Assessment & Plan (03/17/2021 9:32 AM EDT): The patient received dietary education because they have an above normal BMI. Inguinal pain, right 01/27/2021 Gastroesophageal reflux disease 08/19/2019 Kidney stone 03/26/2019 Assessment & Plan (03/17/2021 9:30 AM EDT): Patient with a history of kidney stones. He denies recurrent flank pain. He does have vague intermittent right lower quadrant pain. He is fat planned for a CAT scan today. I will review once available Mixed hyperlipidemia 03/26/2019 Essential hypertension 05/08/2018 Assessment & Plan (01/27/2021 7:17 PM EDT): Blood pressure is elevated today likely secondary to pain. Intestinal infection due to Clostridium difficil e 03/27/2018 Overview (01/17/2021): history of Clostridium difficile intestinal infection History of Clostridioides difficile infection Encounters Date Type Department Care Team Description 08/11/2024 3:45 PM EST Office Visit [facility] [address] [place] [address] Flip Gillespie MD Testis mass (Primary Dx) from Last 3 Months Immunizations Name Administration Dates Next Due Moderna SARS-CoV-2 COVID-19, mRNA, LNP-S, preservative free 10/29/2020,09/23/2020 Tdap Tetanus diptheria acell ular pertussis (Boostrix; Adacel) 7yo and older 06/18/2019,06/18/2019 Surgical History Surgery Date Site/Laterality Comments KNEE ARTHROSCOPY x2 COLONOSCOPY 01/04/2012 scheduled 07/05/18 APPENDECTOMY 07/02/1972 Medical History Medical History Date Comments Hypertension Hiatal hernia Acid reflux Kidney stones Torn meniscus Bronchitis bronchitis with lung complication Family History Medical History Relation Name Comments family history of cancer Father non hodgkins lymphoma Arthritis Mother Loree Heart disease Mother Loree CO Mother Loree Cervical cancer Sister Urolithiasis Sister kidney stone family history of cancer Sister cer vical ca Relation Name Status Comments Father Mother Loree descd-mi Sister Social History Tobacco Use Types Packs/Day Years Used Date Smoking Tobacco: Never Smokeless Tobacco: Never Tobacco Cessation:Counseling Given: Not Answered Alcohol Use Standard Drinks/Week Comments Not Currently [...] money to get more. Never true 08/31/2021 [facility] Answer Date Re corded How [...] Orientation Straight 02/21/2022 9: 37 AM EDT Obstetrics History Last Filed Vital Signs Vital Sign Reading Time Taken Comments Blood Pressure 142/90 08/11/2024 3:43 PM EST Pulse 60 06/11/2023 2:51 PM EST Temperature 37.2 ??C (99 ??F) 08/31/2021 5:54 PM EST Respiratory Rate 16 06/11/2023 2:51 PM EST Oxygen Saturation 96% 06/11/2023 2:51 PM EST Inhaled Oxygen Concentration - - Weight 82.6 kg (182 lb) 06/11/2023 2:51 PM EST Height 170.9 cm (5' 7.3 ) 06/11/2023 2:51 PM EST Body Mass Index 28.25 06/11/2023 2:51 PM EST Plan of Treatment Health Maintenance Due Date Last Done Comments Hepatitis A Vaccines (1 of 2 - Risk 2-dose series) 1980 Pneumococcal Vaccine: 50+ Years (1 of 2 - PCV) 1980 Pneumococcal Vaccine: Pediatrics (0 to 5 Years) and At-Risk Patients (6 to 64 Years) (1 of 2 - PCV) 1980 Zoster Vaccines (1 of 2) 2011 Depression Screening 08/10/2019 HIV Screening 08/10/2019 Hepatitis C Screening 08/10/2019 Social Influencers of Health Screening 08/10/2019 Hepatitis B Vaccines (1 of 3 - Risk 3-dose series) 2021 RSV Immunization Patients 60+ Years Old (1 - Risk 60-74 years 1-dose series) 2021 Hypertension/CHF/CAD Annual BMP Blood Test 10/14/2021 10/14/2020 COVID-19 Vaccine ( season) 2024 03/23/2022, 10/22/2021, 06/21/2021, Additional history exists Influenza Vaccine (#1) 2024 03/23/2022 Cholesterol Screening (Lipid Panel) 08/28/2025 08/28/2020 Colorectal Cancer Screening: Colonoscopy 07/05/2028 07/05/2018 DTaP,Tdap,and Td Vaccines (3 - Td or Tdap) 06/18/2029 06/18/2019, 06/18/2019 HIB Vaccines Aged Out No longer eligi ble based on patient's age to complete this topic HPV Vaccines Aged Out No longer eligi ble based on patient's age to complete this topic IPV Vaccines Aged Out No longer eligi ble based on patient's age to complete this topic MMR Vaccines Aged Out No longer eligi ble based on patient's age to complete this topic Meningococcal ACWY Vaccine Aged Out N o longer eligible based on patient's age to complete this topic Meningococcal B Vacine Aged Out No lo nger eligible based on patient's age to complete this topic RSV Immunization Patients Under 20 months Aged Out No longer eligible based on patient's age to complete this topic Varicella Vaccines Aged Out No longer eligible based on patient's age to complete this topic Procedures Procedure Name Priority Date/Time Associated Diagnosis Comments US BLADDER CAPACITY/POST VOID RESIDUAL URINE Routine 08/11/2024 4:08 PM EST Testis mass ANNUAL BMP BLOOD TEST Routine 10/14/2020 LIPID PANEL Routine 08/28/2020 COLONOSCOPY Routine 07/05/2018 from Last 3 Months or Most Recently Relevant to Health Maintenance Results * US Bladder Capacity/Post Void Residual Urine (08/11/2024 4:08 PM EST) Anatomical Region Laterality Modality Bladder Ultrasound Narrative 08/11/2024 4:14 PM EST 122 ml us Flip Gillespie MD [facility] US PROCEDURES Final Result * Annual BMP Blood Test (10/14/2020) Annual BMP Blood Test abstracted Historical Provider HEALTH MAINTENANCE Final Result * (ABNORMAL) Lipid panel (08/28/2020) [facility] LDL/HDL Ratio 6(A) <=5 Triglycerides 210(A) <=150 mg/dL Cholesterol 221(A) <=200 mg/dL HDL 38(A) >=55 mg/dL LDL Cholesterol 156(A) <=100 mg/dL Blood Topography not assigned / Unknown Historical Provider MD LAB BLOOD ORDERABLES Radha l Result * Colonoscopy (07/05/2018) Pathologist [facility] Colonoscopy no interpreta tion-abstr acted Anatomical Region Laterality Modality Other Historical Provider HEALTH MAINTENANCE Final Result from Last 3 Months or Most Recently Relevant to Health Maintenance Insurance [employer] Care Teams Assisted Living Administrator Relationship Specialty Start Date End Date Ryan Rocha MD [address] [place] [phone] PCP - General Internal Medicine 05/30/23
--- OUTSIDE RECORDS SUMMARY | 2024-09-30 11:34 | XMS_ITS | Encounter Summary ---
Author Organization [facility] Address [address] [place] [address] Care Team Providers Care Firearms Inspector Name Role Phone Unavailable Primary Care Provider Unavailabl e Encounter Details Date Type Department Care Team (Late st Contact Info) Description 03/24/2019 Hospital Encounter [facility] Internal Medicine and Pediatrics [address] [place] [address] Cristin Hamilton, GUM WORKER [address] [facility] [address] [place], [place] Calculus of kidney Social History Tobacco Use Types Packs/Day Years [...] money to get more. Never true 08/31/2021 [facility] Answer Date Re corded How [...] as of this encounter Visit Diagnoses Diagnosis Calculus of kidney documented in this encounter
--- OUTSIDE RECORDS SUMMARY | 2024-09-30 11:34 | XMS_ITS | Encounter Summary ---
Author Organization [facility] Address [address] [place] [address] Care Team Providers Care Gas Maker Helper Name Role Phone Unavailable Primary Care Provider Unavailabl e Encounter Details Date Type Department Care Team (Latest Contact Info) Description 03/26/[address] [facility] Internal Medicine and Pediatrics [address] [address] [facility] [address] [place] [phone] Eddie Taylor MD [address] [place] [address] Essential (primary) hypertension Social History Tobacco Use Types Packs/Day Years [...] money to get more. Never true 08/31/2021 [facility] Answer Date Re corded How [...] as of this encounter Visit Diagnoses Diagnosis Essential (primary) hypertension Unspecified essential hypertension documented in this encounter
--- OUTSIDE RECORDS SUMMARY | 2024-09-30 11:35 | XMS_ITS | Encounter Summary ---
Author Organization [facility] Address [address] [place] [address] Care Team Providers Care Counter Caser Name Role Phone Unavailable Primary Care Provider Unavailabl e Encounter Details Date Type Department Care Team (Latest Contact Info) Description 09/17/2019 Hospital Encounter [facility] Internal Medicine and Pediatrics [address] [place] [address] Zac Davidson, STENOTYPIST [address] [place] [address] Unspecified symptoms and signs involving the genitourinary [...] money to get more. Never true 08/31/2021 [facility] Answer Date Re corded How [...]
--- OUTSIDE RECORDS SUMMARY | 2024-09-30 11:35 | XMS_ITS | Encounter Summary ---
Author Organization [facility] Address [address] [place] [address] Care Team Providers Care Cyanide Pot Hardener Name Role Phone Unavailable Primary Care Provider Unavailabl e Encounter Details Date Type Department Care Team (Latest Contact Info) Description 05/05/2019 Hospital Encounter [facility] Internal Medicine and Pediatrics [address] [place] [address] Zac Davidson, AGRICULTURAL EXTENSION SPECIALIST [address] [place] [address] Unspecified abdominal pain Social History Tobacco Use [...] money to get more. Never true 08/31/2021 [facility] Answer Date Re corded How [...]
--- OUTSIDE RECORDS SUMMARY | 2024-09-30 11:35 | XMS_ITS | Encounter Summary ---
Author Organization [facility] [place] [address] Care Team Providers Care Jig Fitter Name Role Phone Unavailable Primary Care Provider Unavailabl e Encounter Details Date Type Department Care Team (Late st Contact Info) Description 10/29/2019 Hospital Encounter [facility] HISTORIC ENCOUNTERS EASTERN CONVERSION ONLY Cristin Hamilton, ROADWAY ENGINEER [address] [facility] [address] [place], [place] Unspecified hydronephrosis Social History Tobacco Use Types Packs/Day Years [...] money to get more. Never true 08/31/2021 [facility] Answer Date Re corded How [...] Procedure Name Priority Date/Time Associated Diagnosis Comments RENAL SCAN W/PHARM INTERV Routine 10/29/2019 2:27 PM EDT documented in this encounter Results * RENAL SCAN W/PHARM INTERV (10/29/2019 2:27 PM EDT) Anatomical Region Laterality Modality Nuclear Medicine 10/29/2019 1:50 PM EDT Narrative 10/29/2019 2:27 PM EDT EXAMINATION: [phone] - NM RENAL SCAN W/PHARM INTERV WORKING DIAGNOSIS: ?? hydeophrosis TECHNIQUE: 10.0 mCi technetium 99m MAG-3 intravenously. Dynamic and static imaging was performed as well as quantitative analysis of the renal function before and after 40 mg of Lasix was administered intravenously. COMPARISON STUDIES: ??None There is prompt and symmetric perfusion of bilateral kidneys. ??Prompt cortical uptake of radiotracer in bilateral kidneys with prompt excretion into the collecting systems. ??There is mild interstitial retention of radiotracer in the dilated right proximal collecting system, which adequately responds to Lasix. ??Normal response to Lasix in the left kidney. ??No significant retention of radiotracer in either kidney after voiding. Normal time activity curves and peak times of bilateral kidneys, on the left 2 minutes and on the right 3 minutes. ??Split differential renal function of left to right kidney 51 to 49%. IMPRESSION: ??Mild nonobstructive hydronephrosis in the right kidney. Otherwise normal perfusion and function of bilateral kidneys without scintigraphic findings of obstructive uropathy. Approved Electronically by: OLIVIER ELDRIDGE DO on Oct 29 2019 ??2:25P Procedure Note Olivier Eldridge MD - 07/09/2020 EXAMINATION: [id number] - QU RENAL SCAN W/PHARM INTERV WORKING DIAGNOSIS: hydeophrosis TECHNIQUE: 10.0 mCi technetium 99m MAG-3 intravenously. Dynamic and static imaging was performed as well as quantitative analysis of the renal function before and after 40 mg of Lasix was administered intravenously. COMPARISON STUDIES: None There is prompt and symmetric perfusion of bilateral kidneys. Prompt cortical uptake of radiotracer in bilateral kidneys with prompt excretion into the collecting systems. There is mild interstitial retention of radiotracer in the dilated right proximal collecting system, which adequately responds to Lasix. Normal response to Lasix in the left kidney. No significant retention of radiotracer in either kidney after voiding. Normal time activity curves and peak times of bilateral kidneys, on the left 2 minutes and on the right 3 minutes. Split differential renal function of left to right kidney 51 to 49%. IMPRESSION: Mild nonobstructive hydronephrosis in the right kidney. Otherwise normal perfusion and function of bilateral kidneys without scintigraphic findings of obstructive uropathy. Approved Electronically by: OLIVIER ELDRIDGE DO on Oct 29 2019 2:25P Cristin Paniagua ROADWAY ENGINEER IMG NM PROCEDURES Final Resu lt documented in this encounter Visit Diagnoses Diagnosis Unspecified hydronephrosis documented in this encounter
--- OUTSIDE RECORDS SUMMARY | 2024-09-30 11:35 | XMS_ITS | Encounter Summary ---
Author Organization [facility] Address [address] [place] [address] Care Team Providers Care Chinese Instructor Name Role Phone Unavailable Primary Care Provider Unavailabl e Encounter Details Date Type Department Care Team (Latest Contact Info) Description 12/10/2019 Hospital Encounter [facility] Internal Medicine and Pediatrics [address] [facility] [address] [facility] [address] [place] [address] Zac Davidson, TOPPIECE CUTTER [address] [place] [address] Mixed hyperlipidemia Social History Tobacco Use Types [...]
--- OUTSIDE RECORDS SUMMARY | 2024-09-30 11:35 | XMS_ITS | Encounter Summary ---
Author Organization [facility] Address [address] [place] [address] Care Team Providers Care Election Clerk Name Role Phone Unavailable Primary Care Provider Unavailabl e Encounter Details Date Type Department Care Team (Late st Contact Info) Description 10/14/2020 2:46 PM EDT Hospital Encounter [facility] Internal Medicine and Pediatrics [address] [address] [place] [phone] Kelly Curran PA [address] [facility] [address] [place] [address] Social History Tobacco Use Types Packs/Day Years [...] documented as of this encounter Visit Diagnoses Not on filedocumented in this encounter
== END 2024-09-30 10:19 | disposition home or self-care (01) ==
LOC: HO.HMCFM 09:55
PROVIDERS: PCP Nurse Practitioner Family; Visit Provider Nurse Practitioner Family
DX: I10 Essential (primary) hypertension (principal); R73.09 Other abnormal glucose; E78.5 Hyperlipidemia, unspecified

== ENCOUNTER → 2024-09-30 09:54 | Outpatient (BNVA) | payer OTHER, SELFPAY | PROVIDERS: PCP Nurse Practitioner Family; Visit Provider Nurse Practitioner Family ==

== ENCOUNTER 2024-10-31 07:57 | Outpatient (AMB) | payer OTHER, SELFPAY ==
--- NOTE | 2024-10-31 07:58 | A.OFFPC_ITS ---
Vital Signs 10/31/24 08:05 10/31/24 08:14 Height 5 ft 7 in Weight 172 lb 2 oz BMI 27.0 BP 145/71 H 130/70 Blood Pressure Location Rt brachial Lt brachial Position Sitting Respiration 16 Pulse 73 Pulse Source Pulse Oximeter Temp 98.1 F Temp Source Oral Pulse Oximetry (%) 98 Oxygen Delivery Method Room Air Intake Visit Reasons: 1 mos CPE Intake Note: patient here for CPE Medical Dir Required: No Allergies doxycycline Allergy (Mild, Verified 10/31/24 08:09) stomach problems cillins Allergy (Mild, Uncoded 10/31/24 08:09) Rash Medication List - Last Reconciled 10/31/24 by Aakash George CNP amlodipine 2.5 mg PO DAILY 30 days lisinopril 10 mg PO DAILY 30 days Tobacco use date assessed: 10/31/24 Dental Screening Dental Screen Date: 10/31/24 Did you have a dental visit in the last 12 months?: Yes Did you have a dental problem in the last 6 months where you did not have access to dental care?: No Was dental information given to patient?: Patient has dentist HPI HPI Comments History of Present Illness Details 64-year-old male presents for an extende d physical exam. He admits to taking her medications as prescribed without adverse reactions. Acute issue(s) - Reports left ribs pain with palpation and certain movements. He notes that he [facility]. He slipped on his stairs and landed on his left side on the rim of a metal bucket. He notes that xray revealed 2 broken ribs. He has been taking ibuprofen with significant improvement. Past Medical History - Hypertension, hyperlipidemia, palpitat ions, GERD, gout, astigmatism Social History - Nonsmoker. Does not vape. Drinks 3 dri nks/beers/vodka 1-2 times weekly. Denies recreational drug use - Has been making healthy dietary choice s. Walks frequently. Generally sleep well Health maintenance - Last eye exam was within the last 6 mo nths. He will sign a consent for his PCP to obtain his ophthalmology record - Last dental visit was 1-2 months ago - Last tetanus vaccine was in 10/26/2024 - Has not been vaccinated for the flu ; declines vaccination - He has not been vaccinated for shingle s - Last colonoscopy was with in the past year at [facility] in, [facility]. 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 1. Little interest or pleasure in doing things: not at all 2. Feeling down, depressed, or hopeless: not at all 3. Trouble falling or staying asleep, or sleeping too much: several days 4. Feeling tired or having little energy: several days 5. Poor appetite or overeating: not at all 6. Feeling bad about yourself - or that you are a failure or have let yourself or your family down: not at all 7. Trouble concentrating on things, such as reading the newspaper or watching television: not at all 8. Moving or speaking so slowly that other people could have noticed. Or the opposite - being so fidgety or restless that you have been moving around a lot more than usual: not at all 9. Thoughts that you would be better off or of hurting yourself in some way: not at all Total score: 2 Depression Screening Interpretation: Negative Depression Screening Done: Yes 97061 - PHQ-9 Billing: Yes Source: Developed by Drs. Jacob Armstrong, Ann Johnson, Kishore Cruz and colleagues, with an educational jada from [employer]. Thrive Questionnaire Date Thrive assessed: 08/07/24 I am a: Patient What is your living situation today?: I have a steady place to live Within the past 12 months, did the food you bought not last and you didn't have the money to get more?: Never true Within the past 12 months, did you worry whether your food would run out before you got money to buy more?: Never true Do you have trouble paying for medicines?: No Do you have trouble getting transportation to medical appointments?: No Do you have trouble paying your heating and electricity bill?: No Do you have trouble taking care of your child, family member or friend?: No Do you have trouble with day-to-day activities such as bathing, preparing meals, shopping, managing finances, etc.?: No Are you currently unemployed and looking for a job?: No Are you interested in more education?: No Please select the resources that you would like help with: None Currently or been in a relationship where the following occur: No concerns reported THRIVE Score: 0 AUDIT C Alcohol Use Questionnaire (AUDIT-C) 1. How often do you have a drink containing alcohol?: 2-3 times a week 2. How many drinks containing alcohol do you have on a typical day when you are drinking?: 1 or 2 3. How often do you have six or more drinks on one occasion?: Never Total Score: 3 Score Reviewed/Action Taken: Yes JASWINDER-7 AMB Questionnaire JASWINDER-7 Date JASWINDER - 7 assessed: 10/31/24 Feeling nervous, anxious, or on edge: 0 = Not at all Not being able to stop or control worryin = Not at all Worrying too much about different things: 1 = Several days Trouble relaxin = Not at all Being so restless that it is hard to sit still: 0 = Not at all Becoming easily annoyed or irritable: 0 = Not at all Feeling afraid as if something awful might happen: 0 = Not at all Total JASWINDER-7 score (0-4 normal; 5-9 mild; 10-14 moderate; 15-21 severe): 1 Source: Developed by Drs. Jacob Armstrong, Ann Johnson, Kishore Cruz and colleagues, with an educational jada from [employer]. JASWINDER-7 Assessment Billing JASWINDER-7 Assessment Tool: JASWINDER-7 Assessment 84465 Review of Systems Const Details: Denies chills, Denies fatigue, Denies fever(s), Denies headache(s) and Denies weakness HEENT Denies change in vision, Denies dizziness, Denies headache(s), Denies hearing loss, Denies nasal congestion, Denies sinus pain, Denies sinus pressure and Denies sore throat Card Denies chest pain, Denies lightheadedness, Denies dyspnea and Denies other (palpitations) Resp Denies cough, Denies dyspnea and Denies wheezing GI Denies abdominal pain, Denies melena, Denies hematochezia, Denies change in bowel habits, Denies dyspepsia and Denies nausea Denies hematuria and Denies dysuria Musc Reports left-sided ribs pain, Denies abnormal gait, Denies arthralgias, Denies numbness and Denies tingling Skin/Breast Denies rash, Denies unusual bruising and Denies wounds Neuro Denies abnormal gait, Denies dizziness, Denies headache(s), Denies memory loss, Denies numbness, Denies Sensory deficit (Neuro), Denies tingling and Denies weakness Psych Denies anxiety, Denies depression and Denies memory loss Endo Denies cold intolerance, Denies fatigue, Denies heat intolerance, Denies polydipsia and Denies polyuria J Luis/Lymph Denies easy bleeding and Denies easy bruising Aller/Immun Denies wheezing Physical exam (Primary Care) Tobacco/Smoking Status: Tobacco use Status Tobacco use date assessed 09/30/24 10/31/24 08:01 Patient Tobacco Use Status Never used Tobacco 10/31/24 08:01 e-Cigarette/Vaping Use Never Used 10/31/24 08:01 Depression Screening Interpretation: Negative Thrive Assessment: Date of Thrive Assessment Date Thrive assessed 08/07/24 10/31/24 08:01 Currently or been in a relationship where the following occur: No concerns reported Const Other: General: no acute distress, well developed, alert and awake Nutritional Appearance: well nourished Orientation/consciousness: patient oriented x3 HENMT Head: Yes normocephalic and Yes atraumatic Ears: hearing grossly normal bilaterally and TM's normal bilaterally General nose exam: Normal external nose present and Normal nares present Mouth: Normal oral and palatal mucosa present and moist mucous membranes Teeth and gingiva: dentition normal Throat: Yes oropharynx normal Eyes Pupils: Equal, round and reactive pupils present and Pupil accommodation reflex normal EOM: EOMs intact bilaterally Neck Neck: Yes normal visual inspection, Yes no lymphadenopathy and Yes trachea midline Thyroid: Thyroid normal Carotids: no bruits Lymphatic: no lymphadenopathy noted Chest Chest palpation & inspection: normal inspection of the chest Resp Effort & Inspection: normal respiratory effort Auscultation: clear to auscultation bilaterally Cardio Rate: regular rate Rhythm: regular rhythm Heart sounds: S1 normal heart sound present, S2 normal heart sound present, no gallops, no murmurs and no rubs Bruits: no abdominal aortic bruits and no carotid bruits GI Palpation (GI): No Abdominal aortic bruit present, Soft to palpation, nontender, No hepatosplenomegaly present and No Rebound tenderness present Auscultation: normal bowel sounds General: Yes no CVA tenderness Back/Spine/Pelvis Back: no CVA tenderness Cervical Spine: cervical ROM normal and No Cervical spine tenderness Thoracic/Lumbar Spine: thoraco-lumbar ROM normal, No pain with thoraco-lumbar ROM, No thoracic spinal tenderness and No lumbar spinal tenderness Ribs Tenderness to palpation of the left lower ribcage, no edema, erythema, ecchymosis Skin General: warm and dry. Normal skin color. Normal skin turgor Lesions: no lesions Rashes: no rashes Trauma: no lacerations or abrasions Wounds: no wounds Nails: normal Neuro General: patient oriented x3, gait normal and CN's II-XI intact bilaterally Cranial nerves: Yes Equal, round and reactive pupils present Cognition (Neuro): normal cognition Gait exam (Neuro): Normal gait present Motor exam (neuro): 5/5 motor strength present throughout Sensory Exam: No Sensory deficit (Neuro) Deep tendon reflexes (DTR's): Right patellar reflex intensity grade: 2+ and Left patellar reflex intensity grade: 2+ Extrem General: Yes normal to inspection, No edema and No calf tenderness Psych Appearance: grossly normal Affect: normal affect Attitude: cooperative Thought process: Normal thought process present Coding Level of Care Code Est Pt Level 3 (30249) Est Pt Prev Care 40-64y(92027) Diagnoses Physical exam, annual Z00.00 Hypertension I10 Hyperlipidemia E78.5 Rib pain on left side R07.81 Vaccine counseling Z71.85 Additional Codes JASWINDER-7 Assessment Billing - JASWINDER-7 Assessment Tool: JASWINDER-7 Assessment 92469 ([id number]) PHQ-9 - 24404 - PHQ-9 Billing: Yes ([id number]) Assessment & Plan Assessment & Plan (1) Physical exam, annual: Code(s): Z00.00 - Encounter for general adult medical examination without abnormal findings Category: Medical Plan: Normal physical exam of a 64-year-old male. No significant functional limitation noted. Routine exercise and healthy diet encouraged. Perform lab work and follow-up for hypertension and hyperlipidemia in 2 months. Return sooner with symptoms or concerns. Verbalized understanding and agreed with the plan. (2) Hypertension: Code(s): I10 - Essential (primary) hypertension Category: Medical Plan: Resting blood pressure is 130/70, within goal of less than 140/90. Continue current treatment regimen. Follow-up in 2 months. Verbalized understanding and agreed with the plan. (3) Hyperlipidemia: Code(s): E78.5 - Hyperlipidemia, unspecified Category: Medical Plan: Recent Triglycerides, total cholesterol, and LDL levels on 09/13/2023 were slightly elevated, 217, 167, and 144 respectively. Advised to limit foods high in saturated fat and avoid foods high in trans fats. Routine exercise encouraged. Fast for 10-12 hours, may drink water, before the lipid panel blood work 2-3 days before next visit. Follow-up in 2 months. Verbalized understanding and agreed with the plan. (4) Rib pain on left side: Code(s): R07.81 - Pleurodynia Category: Medical Plan: Reports left ribs pain with palpation and certain movements. He notes that he was [facility]. He slipped on his stairs and landed on his left side on the rim of a metal bucket. He notes that xray revealed 2 broken ribs. He has been taking ibuprofen with significant improvement. Tenderness to palpation of the left lower ribcage, no edema, erythema, ecchymosis. Continue to take ibuprofen as needed for pain or discomfort. Warm/cool compresses encouraged. Instructed on safety to prevent fall. Follow-up with worsening or new symptoms. Verbalized understanding and agreed with the treatment plan. (5) Vaccine counseling: Code(s): Z71.85 - Encounter for immunization safety counseling Category: Medical Plan: He has not been vaccinated for shingles. Advised to get vaccinated for shingles. He may get the vaccine from the local pharmacy. Verbalized understanding and agreed with the plan.
--- OUTSIDE RECORDS SUMMARY | 2024-10-31 08:02 | XMS_ITS | Clinical Summary ---
Author Organization [facility] Address [address] [place] [address] Phone Care Team Providers Care Tipple Supervisor Name Role Phone Unavailable Primary Care Provider Unavailabl e Allergies Active Allergy Reactions Criticality Noted Date Comments Penicillins Rash Medications Medication Sig Dispensed Refills Start Date End Date Status lisinopril 20 MG tablet Lisinopril 20 MG Oral Tablet Refills: 0 Active Active amLODIPine (Norvasc) 2.5 MG tablet Take 1 tablet by mouth once daily. 10/20/2024 Active oxyCODONE (Roxicodone) 5 MG immediate release tablet Take 1 tablet (5 mg) by mouth every 8 (eight) hours if needed for severe pain for up to 5 doses. Max Daily Dose = 15 mg 5 tablet 10/27/2024 Active Encounters Date Type Department Care Team Description 10/26/2024 10:05 PM EDT - 10/27/2024 12:49 AM EDT Emergency [facility] EMERGENCY DEPARTMENT [address] [facility] 1st [place] [address] Abebe Hart MD Closed fracture of multiple ribs of left side, initial encounter (Primary Dx) Discharge Disposition: DISCHARGED TO HOME/ASSISTED LIVING/SELF CARE (ROUTINE DISCHARGE) 10/26/2024 Travel from Last 3 Months Immunizations Name Administration Dates Next Due Tdap 10/27/2024 Social History Tobacco Use Types Packs/Day Years Used Date Smoking Tobacco: Never Smokeless Tobacco: Never Tobacco Cessation:Counseling Given: Not Answered Alcohol Use Standard Drinks/Week Comments Yes 0 (1 standard drink = 0.6 oz pur e alcohol) Sex and Gender Information Value Date Recorded Sex Assigned at Not on file Gender Identity Not on file Sexual Orientation Not on file Last Filed Vital Signs Vital Sign Reading Time Taken Comments Blood Pressure 151/82 10/26/2024 11:58 PM EDT Pulse 71 10/26/2024 11:58 PM EDT Temperature 36.9 ??C (98.5 ??F) 10/26/2024 11:58 PM E DT Respiratory Rate 18 10/26/2024 11:58 PM EDT Oxygen Saturation 96% 10/26/2024 11:58 PM EDT Inhaled Oxygen Concentration - - Weight 74.4 kg (164 lb) 10/26/2024 10:03 PM EDT Height 170.2 cm (5' 7 ) 10/26/2024 10:03 PM EDT Body Mass Index 25.69 10/26/2024 10:03 PM EDT Plan of Treatment Health Maintenance Due Date Last Done Comments CT Colonography 1961 Cologuard 1961 Colonoscopy 1961 Colorectal Cancer Screening 1961 FIT 1961 FOBT 1961 Sigmoidoscopy 1961 MMR Vaccines (1 of 1 - Standard series) 1962 Hepatitis C Screening 1979 Hepatitis A Vaccines (1 of 2 - Risk 2-dose series) 1980 Zoster Vaccines (1 of 2) 2011 Hepatitis B Vaccines (1 of 3 - Risk 3-dose series) 2021 DTaP/Tdap/Td Vaccines (2 - Td or Tdap) 11/24/2024 10/27/2024 Influenza Vaccine (Season Ended) 2025 03/23/2022 Creatinine Level 10/26/2025 10/26/2024, 01/2023, 02/05/2023, Additional history exists Potassium Level 10/26/2025 10/26/2024, 08/0 01/2023, 02/05/2023, Additional history exists Lipid Panel 02/07/2028 02/06/2023, 08/, 09/10/2021 HIB Vaccines Aged Out No longer eligi ble based on patient's age to complete this topic HPV Vaccines Aged Out No longer eligi ble based on patient's age to complete this topic IPV Vaccines Aged Out No longer eligi ble based on patient's age to complete this topic Meningococcal Vaccine Aged Out No dirk ca eligible based on patient's age to complete this topic Pneumococcal Vaccine: Pediatrics (0 to 5 Years) and At-Risk Patients (6 to 64 Years) Aged Out No longer eligible based on patient's age to complete this topic Rotavirus Vaccines Aged Out No longer eligible based on patient's age to complete this topic Procedures Procedure Name Priority Date/Time Associated Diagnosis Comments URINE MICROSCOPIC STAT 10/27/2024 12: 01 AM EDT RUBY TOP Routine 10/27/2024 12:01 AM EDT EXTRA URINE CONTAINERS Routine 12:01 AM EDT URINALYSIS WITH REFLEX MICROSCOPIC STAT 10/27/2024 12:[address] CHEST ABDOMEN PELVIS W CONTRAST STAT 10/26/2024 11:54 PM EDT ECG 12 LEAD STAT 10/26/2024 11:20 PM EDT GOLD TOP Routine 10/26/2024 10:38 PM EDT GOLD TOP Routine 10/26/2024 10:38 PM EDT LAVENDER TOP Routine 10/26/2024 10:38 PM EDT EXTRA TUBES Routine 10/26/2024 10:38 PM EDT LACTIC ACID WITH 3 HOUR REFLEX STAT 10/26/2024 10:38 PM EDT ABO CONFIRM QUESTION STAT 10/26/2024 10:37 PM EDT CKMB STAT 10/26/2024 10:37 PM EDT AUTOMATED DIFFERENTIAL STAT 10:37 PM EDT TYPE AND SCREEN STAT 10/26/2024 10:37 PM EDT COMPLETE BLOOD COUNT STAT 10/26/2024 10:37 PM EDT PTT STAT 10/26/2024 10:37 PM EDT PROTIME-INR STAT 10/26/2024 10:37 PM EDT TYPE AND SCREEN STAT 10/26/2024 10:37 PM EDT CK WITH REFLEX TO CKMB - CMH STAT 10/26/2024 10:37 PM EDT AMYLASE STAT 10/26/2024 10:37 PM EDT LIPASE STAT 10/26/2024 10:37 PM EDT COMPREHENSIVE METABOLIC PANEL STAT 10/26/2024 10:37 PM EDT CBC AUTO DIFFERENTIAL STAT 10/26/2024 10:37 PM EDT LIPID PANEL (HISTORICAL) Routine 02/06/2023 5:38 AM EDT from Last 3 Months or Most Recently Relevant to Health Maintenance Results * Ruby Top (10/27/2024 12:01 AM EDT) Extra Tube Hold for add-ons. 10/27/2024 2:01 AM EDT [facility] Comment:Auto resulted. Urine 10/27/2024 12:0 1 AM EDT 10/27/2024 12:10 AM EDT Abebe Hart MD LAB URINE ORDERABLES [facility] [address] [place] [address] * Urine microscopic (10/27/2024 12:01 AM EDT) RBC None Seen None Seen, 0-2 /HPF 10/27/2024 12:34 AM EDT [facility] WBC 0-5 None Seen, 0-5 /HPF 10/27/2024 12:34 AM EDT [facility] Bacteria None Seen None Seen /HPF 10/27/2024 12:34 AM EDT [facility] Squamous Epithelial, Urine None Seen None Seen, Few /HPF 10/27/2024 12:34 AM EDT [facility] Hyaline Casts, Urine 0-2 None Seen, 0-2 /LPF 10/27/2024 12:34 AM EDT [facility] Urine Urine specimen obtained by clean catch procedure / Unknown Non-blood Collection / Unknown 10/27/2024 12:01 AM EDT 10/27/2024 12:08 AM EDT Abebe Hart MD LAB URINE ORDERABLES [facility] [address] [place] [address] * (ABNORMAL) Urinalysis with reflex microscopic (10/27/2024 12:01 AM EDT) Color Yellow Yellow 10/27/2024 12:20 AM T [facility] Clarity Clear Clear 10/27/2024 12:20 AM [facility] Specific [place], UA 1.026 1.003 - 1.030 10/27/2024 12:20 AM [facility] Bilirubin Negative Negative 10/27/2024 12:20 AM T [facility] Ketones Trace(A) Negative 10/27/2024 12:20 AM EDT [facility] Blood Negative Negative 10/27/2024 12:20 AM EDT [facility] pH 6.5 5.0 - 8.0 pH 10/27/2024 12:20 AM EDT [facility] Leukocytes Negative Negative 10/27/2024 12:20 AM EDT [facility] Protein Negative Negative 10/27/2024 12:20 AM T [facility] Glucose Negative Negative 10/27/2024 12:20 AM EDT [facility] Urobilinogen 0.2 0.2, 1.0 mg/dL 10/27/2024 12:20 AM EDT [facility] Nitrite Negative Negative 10/27/2024 12:20 AM EDT [facility] Urine Urine specimen obtained by clean catch procedure / Unknown Non-blood Collection / Unknown 10/27/2024 12:01 AM EDT 10/27/2024 12:08 AM EDT Abebe Hart MD LAB URINE ORDERABLES Performing Organization Address City/State/[facility] Co de Phone Number [facility] [address] [place] [phone] * CT Chest Abdomen Pelvis W Contrast (10/26/2024 11:54 PM EDT) Anatomical Region Laterality Modality Chest, Abdomen, Pelvis N/A Computed Tomography 10/27/2024 6:46 AM EDT Impressions 10/27/2024 7:30 AM EDT 1. Nondisplaced left 10th and 11th rib fractures 2. Calcifications in the right posterior bladder. It is unclear if these are intraluminal or intramural. Routine nonemergent follow-up outpatient imaging of the bladder with prone imaging may be beneficial Signed by ??Eddie Paul MD 10/27/2024 7:30 AM Narrative 10/27/2024 7:30 AM EDT EXAM: CT CHEST ABDOMEN PELVIS W CONTRAST CLINICAL INFORMATION: Left chest wall and abdominal pain after fall down the stairs TECHNIQUE: Helically-acquired CT images were obtained through the chest, abdomen, and pelvis with IV contrast All CT exams at this location are performed using dose optimization techniques as appropriate to a performed exam including at least one of the following: automated exposure control, adjustment of the mA and/or kV according to patient size and/or exam, or use of iterative reconstructive techniques. CONTRAST DOSE: 100 mL of Isovue-300 COMPARISON: CTA of the chest and abdomen February 05, 2023. FINDINGS: CHEST: TRACHEA AND AIRWAYS: Trachea and central bronchi are clear. LUNGS AND PLEURA: No airspace disease. No pleural effusion or pneumothorax . 0.5 cm lymph node along the right minor fissure is stable. Subpleural groundglass in the dependent lower lobes likely reflects atelectasis. Band of atelectasis versus scar in the anterior right lower lobe is stable. THYROID GLAND: No thyroid nodule. MEDIASTINUM, PULMONARY SHAMEKA, AND AXILLAE: No supraclavicular, axillary, mediastinal, or hilar lymphadenopathy.. The nondistended thoracic esophagus is within normal limits. CARDIOVASCULAR: Heart is normal in size. No pericardial effusion. No aortic aneurysm. No central pulmonary embolus ABDOMEN/PELVIS: HEPATOBILIARY: The gallbladder is contracted SPLEEN: Normal PANCREAS: Normal. ADRENAL GLANDS: Normal. KIDNEYS, URETERS AND URINARY BLADDER: The kidneys normal. Calcifications within or a layering along the right posterior wall of the bladder measures 0.9 cm. GASTROINTESTINAL TRACT: The stomach and small bowel are normal. The appendix is not visualized. Mild diverticulosis in the proximal sigmoid colon REPRODUCTIVE ORGANS: Prostate is enlarged PERITONEUM AND RETROPERITONEUM: No free intraperitoneal air or fluid. LYMPH NODES: No mesenteric, retroperitoneal, or pelvic adenopathy. VASCULATURE: Mild aortoiliac atherosclerosis MUSCULOSKELETAL: SOFT TISSUES: Fat-containing inguinal canals. Small fat-containing umbilical hernia. BONES: No aggressive osseous lesion. Nondisplaced left lateral 10th and 11th rib fractures Chronic left posterior lateral seventh rib deformity may reflect an old healed fracture is unchanged. No acute fracture. Moderate right and mild left hip joint arthritis. Fusion of the sacroiliac joints Procedure Note Eddie Paul MD - 10/27/2024 EXAM: CT CHEST ABDOMEN PELVIS W CONTRAST CLINICAL INFORMATION: Left chest wall and abdominal pain after fall downthe stairs TECHNIQUE: Helically-acquired CT images were obtained through the chest,abdomen, and pelvis with IV contrast All CT exams at this location are performed using dose optimizationtechniques as appropriate to a performed exam including at least one ofthe following: automated exposure control, adjustment of the mA and/or kVaccording to patient size and/or exam, or use of iterative reconstructivetechniques. CONTRAST DOSE: 100 mL of Isovue-300 COMPARISON: CTA of the chest and abdomen February 05, 2023. FINDINGS: CHEST: TRACHEA AND AIRWAYS: Trachea and central bronchi are clear. LUNGS AND PLEURA: No airspace disease. No pleural effusion or pneumothorax. 0.5 cm lymph node along the right minor fissure is stable. Subpleuralgroundglass in the dependent lower lobes likely reflects atelectasis. Bandof atelectasis versus scar in the anterior right lower lobe is stable. THYROID GLAND: No thyroid nodule. MEDIASTINUM, PULMONARY SHAMEKA, AND AXILLAE: No supraclavicular, axillary,mediastinal, or hilar lymphadenopathy.. The nondistended thoracicesophagus is within normal limits. CARDIOVASCULAR: Heart is normal in size. No pericardial effusion. Noaortic aneurysm. No central pulmonary embolus ABDOMEN/PELVIS: HEPATOBILIARY: The gallbladder is contracted SPLEEN: Normal PANCREAS: Normal. ADRENAL GLANDS: Normal. KIDNEYS, URETERS AND URINARY BLADDER: The kidneys normal. Calcificationswithin or a layering along the right posterior wall of the bladdermeasures 0.9 cm. GASTROINTESTINAL TRACT: The stomach and small bowel are normal. Theappendix is not visualized. Mild diverticulosis in the proximal sigmoidcolon REPRODUCTIVE ORGANS: Prostate is enlarged PERITONEUM AND RETROPERITONEUM: No free intraperitoneal air or fluid. LYMPH NODES: No mesenteric, retroperitoneal, or pelvic adenopathy. VASCULATURE: Mild aortoiliac atherosclerosis MUSCULOSKELETAL: SOFT TISSUES: Fat-containing inguinal canals. Small fat-containingumbilical hernia. BONES: No aggressive osseous lesion. Nondisplaced left lateral 10th [id number] rib fractures Chronic left posterior lateral seventh rib deformitymay reflect an old healed fracture is unchanged. No acute fracture.Moderate right and mild left hip joint arthritis. Fusion of the sacroiliacjoints IMPRESSION: 1. Nondisplaced left 10th and 11th rib fractures 2. Calcifications in the right posterior bladder. It is unclear if theseare intraluminal or intramural. Routine nonemergent follow-up outpatientimaging of the bladder with prone imaging may be beneficial Signed by Eddie Paul MD 10/27/2024 7:30 AM Abebe Hart MD IMG CT PROCEDURES * ECG 12 lead (10/26/2024 11:20 PM EDT) Diagnosis Class Normal GE MUSE Ventricular Rate 64 BPM GE MUSE Atrial Rate 64 BPM GE MUSE FL Interval 200 ms GE MUSE QRS DURATION 80 ms GE MUSE QT Interval 388 ms GE MUSE QTC CALCULATION (BAZETT) 400 ms GE MUSE P [place] 69 degrees GE MUSE R [place] -3 degrees GE MUSE T Wave [place] 10 degrees GE MUSE 10/26/2024 11:1 6 PM EDT 10/27/2024 5:14 PM EDT Impressions GE MUSE - 10/27/2024 5:14 PM EDT Normal sinus rhythm Baseline artifacts Possible old septal infarct When compared with ECG of 05-FEB-2023 22:21, No significant change Confirmed by iVri Lynch ([id number]) on 10/27/2024 5:14:25 PM Narrative Procedure Note iVri Lynch MD - 10/27/2024 IMPRESSION: Normal sinus rhythm Baseline artifacts Possible old septal infarct When compared with ECG of 05-FEB-2023 22:21, No significant change Confirmed by Viri Lynch ([id number]) on 10/27/2024 5:14:25 PM Abebe Hart MD ECG ORDERABLES Performing Organization Address [facility] Co de Phone Number GE MUSE * Gold Top (10/26/2024 10:38 PM EDT) Only the most recent of2 resultswithin the time period is included. Extra Tube Hold for add-ons. 10/27/2024 12:01 AM EDT [facility] Comment:Auto resulted. Blood Venous blood / Unknown 10/26/2024 10:38 PM EDT 10/26/2024 10:52 PM EDT Abebe Hart MD LAB BLOOD ORDERABLES Performing Organization Address [facility] de Phone Number [facility] [address] [place] [phone] * Lactic acid with 3 hour reflex (10/26/2024 10:38 PM EDT) Lactate, Venous 1.6 0.5 - 2.0 mmol/L 10/26/2024 11:08 PM EDT [facility] Blood Venous blood / Unknown Venipuncture / Unknown 10/26/2024 10:38 PM EDT 10/26/2024 10:49 PM EDT Abebe Hart MD LAB BLOOD ORDERABLES Performing Organization Address [facility] Co de Phone Number [facility] [address] [place] [phone] * Lavender Top (10/26/2024 10:38 PM EDT) Extra Tube Hold for add-ons. 10/27/2024 12:01 AM EDT [facility] Comment:Auto resulted. Blood Venous blood / Unknown 10/26/2024 10:38 PM EDT 10/26/2024 10:52 PM EDT Abebe Hart MD LAB BLOOD ORDERABLES Performing Organization Address City/[facility]/ZIP Co de Phone Number [facility] [address] [place] [address] * Type and Screen (10/26/2024 10:37 PM EDT) Pathologist [facility] ABO/RH O Positive 10/26/2024 10:26 PM EDT [facility] Antibody Screen Negative 10/26/2024 10:26 PM EDT [facility] Comment:Reference range: Neg ative Specimen Expiration Date 10/29/2024 11:59:00 PM EDT 10/26/2024 10:26 PM EDT [facility] Blood Venous blood / Unknown Venipuncture / Unknown 10/26/2024 10:37 PM EDT 10/26/2024 10:49 PM EDT Abebe Hart MD LAB BLOOD BANK TEST ORDERABLES Performing Organization Address [facility] Co de Phone Number [facility] [address] [place] [address], * (ABNORMAL) Automated Differential (10/26/2024 10:37 PM EDT) Lymphocytes % 15.6 13.0 - 41.0 % 10/26/2024 10:52 PM EDT [facility] Monocytes % 7.2 4.0 - 14.0 % 10/26/2024 10:52 PM EDT [facility] NRBC % 0.0 0.0 - 1.0 % 10/26/2024 10:52 PM EDT [facility] Neutrophils % 75.2 46.0 - 76.0 % 10/26/2024 10:52 PM EDT [facility] Eosinophils % 1.2 0.0 - 5.0 % 10/26/2024 10:52 PM EDT [facility] Basophils % 0.4 0.0 - 1.0 % 10/26/2024 10:52 PM EDT [facility] Immature Granulocytes % 0.4 0.0 - 0.4 % 10/26/2024 10:52 PM EDT [facility] Absolute Neutrophils 7.49(H) 1.70 - 7.00 10*3/uL 10/26/2024 10:52 PM EDT [facility] Absolute Lymphocytes 1.55 0.50 - 3.10 10*3/uL 10/26/2024 10:52 PM EDT [facility] Absolute Monocytes 0.72 0.20 - 1.10 10*3/uL 10/26/2024 10:52 PM EDT [facility] Absolute Eosinophils 0.12 0.00 - 0.30 10*3/uL 10/26/2024 10:52 PM EDT [facility] Absolute Basophils 0.04 0.00 - 0.10 10*3/uL 10/26/2024 10:52 PM EDT [facility] Absolute Immature Granulocytes 0.04(H) 0.00 - 0.03 10*3/uL 10/26/2024 10:52 PM EDT [facility] Absolute NRBC 0.00 0.00 - 0.01 10*3/uL 10/26/2024 10:52 PM EDT [facility] Blood Venous blood / Unknown Venipuncture / Unknown 10/26/2024 10:37 PM EDT 10/26/2024 10:49 PM EDT Abebe Hart MD LAB BLOOD ORDERABLES [facility] [address] [place] [address] * Complete Blood Count (10/26/2024 10:37 PM EDT) WBC 10.0 3.4 - 10.5 10*3/uL 10/26/2024 10:52 PM EDT [facility] RBC 4.90 4.83 - 6.08 10*6/uL 10/26/2024 10:52 PM EDT [facility] Hemoglobin 14.8 13.7 - 17.5 g/dL 10/26/2024 10:52 PM EDT [facility] Hematocrit 44.4 40.0 - 51.0 % 10/26/2024 10:52 PM EDT [facility] MCV 90.6 79.0 - 92.0 fL 10/26/2024 10:52 PM EDT [facility] MCH 30.2 25.9 - 32.2 pg 10/26/2024 10:52 PM EDT [facility] MCHC 33.3 32.3 - 36.5 g/dL 10/26/2024 10:52 PM EDT [facility] RDW 12.4 11.8 - 14.7 % 10/26/2024 10:52 PM EDT [facility] Platelet Count 217 150 - 460 10*3/uL 10/26/2024 10:52 PM EDT [facility] MPV 9.8 9.4 - 12.4 fL 10/26/2024 10:52 PM EDT [facility] Blood Venous blood / Unknown Venipuncture / Unknown 10/26/2024 10:37 PM EDT 10/26/2024 10:49 PM EDT Abebe Hart MD LAB BLOOD ORDERABLES Performing Organization Address City/State/[facility] Co de Phone Number [facility] [address] [place] [phone] * ABO Confirm Question (10/26/2024 10:37 PM EDT) Specimen Expiration Date 10/29/2024 11:59:00 PM EDT 10/26/2024 11:57 PM EDT [facility] New Specimen Required NO 10/26/2024 11:57 PM EDT [facility] Blood Venous blood / Unknown Venipuncture / Unknown 10/26/2024 10:37 PM EDT 10/26/2024 10:49 PM EDT Abebe Hart MD LAB BLOOD BANK TEST ORDERABLES Performing Organization Address [facility]/ZIP Co de Phone Number [facility] [address] [place] [address], * CK with Relex to CKMB (10/26/2024 10:37 PM EDT) Creatine Kinase 248 39 - 308 U/L 10/26/2024 11:12 PM EDT [facility] Blood Venous blood / Unknown Venipuncture / Unknown 10/26/2024 10:37 PM EDT 10/26/2024 10:49 PM EDT Abebe Hart MD LAB BLOOD ORDERABLES Performing Organization Address [facility] Co de Phone Number [facility] [address] [place] [address] * Protime-INR (10/26/2024 10:37 PM EDT) Protime 11.9 9.0 - 13.0 SEC 10/26/2024 10:59 PM EDT [facility] INR 1.1 0.9 - 1.2 10/26/2024 10:59 PM EDT [facility] Comment: SAMPLE CONDITION: RECOMMENDED ??INR: Prevent/Treat Deep Vein Thrombosis 2.0-3.0 Prevent Recurrent UT 2.5-3.5 Cardiac Valves, Mechanical 2.5-3.5 See references: ??Tyshawn TOPETE, ??NEJ, 324; 1865 (1990); ? CHEST, 108;2255 (1994) ? Blood Venous blood / Unknown Venipuncture / Unknown 10/26/2024 10:37 PM EDT 10/26/2024 10:49 PM EDT Abebe Hart MD LAB BLOOD ORDERABLES Performing Organization Address City/[facility]/ZIP Co de Phone Number [facility] [address] [place] [address] * CKMB (10/26/2024 10:37 PM EDT) Pathologist [facility] CK-MB 5.0 <=6.0 ng/mL 10/26/2024 11:23 PM EDT [facility] CK MB MASS RATIO 2.0 0.0 - 6.0 ng/mL 10/26/2024 11:23 PM EDT [facility] Blood Venous blood / Unknown Venipuncture / Unknown 10/26/2024 10:37 PM EDT 10/26/2024 10:49 PM EDT Abebe Hart MD LAB BLOOD ORDERABLES Performing Organization Address [facility]/ZIP Co de Phone Number [facility] [address] [place] [address] * APTT (10/26/2024 10:37 PM EDT) [facility] Partial Thromboplastin Time (aPTT) 28 27 - 37 SEC 10/26/2024 10:59 PM EDT [facility] Comment:APTT is a screening test only and is not to be used for Heparin therapy. Blood Venous blood / Unknown Venipuncture / Unknown 10/26/2024 10:37 PM EDT 10/26/2024 10:49 PM EDT Abebe Hart MD LAB BLOOD ORDERABLES Performing Organization Address [facility]/ZIP Co de Phone Number [facility] [address] [place] [phone] * Lipase (10/26/2024 10:37 PM EDT) Pathologist [facility] Lipase 26 13 - 60 U/L 10/26/2024 11:12 PM EDT [facility] Blood Venous blood / Unknown Venipuncture / Unknown 10/26/2024 10:37 PM EDT 10/26/2024 10:49 PM EDT Abebe Hart MD LAB BLOOD ORDERABLES Performing Organization Address City/[facility]/ZIP Co de Phone Number [facility] [address] [place] [phone] * Amylase (10/26/2024 10:37 PM EDT) Amylase 42 28 - 100 U/L 10/26/2024 11:12 PM EDT [facility] Blood Venous blood / Unknown Venipuncture / Unknown 10/26/2024 10:37 PM EDT 10/26/2024 10:49 PM EDT Abebe Hart MD LAB BLOOD ORDERABLES [facility] [address] [place] [address] * (ABNORMAL) Comprehensive Metabolic Panel (10/26/2024 10:37 PM EDT) Pathologist [facility] Sodium 143 136 - 145 mmol/L 10/26/2024 11:08 PM EDT [facility] Potassium 4.0 3.5 - 5.1 mmol/L 10/26/2024 11:08 PM EDT [facility] Chloride 106 98 - 107 mmol/L 10/26/2024 11:08 PM EDT [facility] Carbon Dioxide 27 22 - 29 mmol/L 10/26/2024 11:08 PM EDT [facility] Anion Gap 10 5 - 15 mmol/L 10/26/2024 11:08 PM EDT [facility] Blood Urea Nitrogen (BUN) 13 6 - 20 mg/dL 10/26/2024 11:08 PM EDT [facility] Creatinine 0.8 0.7 - 1.2 mg/dL 10/26/2024 11:08 PM EDT [facility] eGFR 99 >=60 mL/min/1. 73m*2 10/26/2024 11:08 PM EDT [facility] Comment: Calculation based on the Chronic Kidney Disease Epidemiology Collaboration (CKD- EPI) equation refit without adjustment for race. *This eGRF calculation is based on the 1798-ODK-[id number] creatinine equations for adults designed to estimate glomerular filtration rate (eGFR) without race adjustment factors. *This eGFR results are indexed to standard body surface area (BSA) 1.73 M(2). *eGFR results should only be used for adult patients >=18 years old. *Use of nonindexed eGFR values (mL/min) should be considered for drug dosing decisions. BUN/Creatinine Ratio 16.3 7.0 - 29.0 10/26/2024 11:08 PM EDT [facility] Glucose 110 82 - 115 mg/dL 10/26/2024 11:08 PM EDT [facility] Calcium 9.3 8.6 - 10.2 mg/dL 10/26/2024 11:08 PM EDT [facility] Total Protein 6.2(L) 6.4 - 8.2 g/dL 10/26/2024 11:08 PM EDT [facility] Albumin 4.2 3.4 - 5.0 g/dL 10/26/2024 11:08 PM EDT [facility] Alkaline Phosphatase 73 40 - 120 U/L 10/26/2024 11:08 PM EDT [facility] Alanine Aminotransferase (ALT) 28 0 - 41 U/L 10/26/2024 11:08 PM EDT [facility] Aspartate Aminotransferase (AST) 32 0 - 40 U/L 10/26/2024 11:08 PM EDT [facility] Bilirubin, Total 0.3 0.0 - 1.2 mg/dL 10/26/2024 11:08 PM EDT [facility] Globulin, Total 2.0 g/dL 11:08 PM EDT [facility] A/G Ratio 2.1 10/26/2024 11:08 PM EDT [facility] Blood Venous blood / Unknown Venipuncture / Unknown 10/26/2024 10:37 PM EDT 10/26/2024 10:49 PM EDT Abebe Hart MD LAB BLOOD ORDERABLES [facility] [address] [place] [phone] * (ABNORMAL) LIPID PANEL (HISTORICAL) (02/06/2023 5:38 AM EDT) Cholesterol 202 mg/dL [facility] Comment: DESIRABLE ??<200 mg/dL BORDER LINE ?200-239 mg/dL HIGH RISK ?? >240 mg/dL Triglyceride 204 mg/dL [facility] Comment: DESIRABLE ??<150 mg/dL [id number] mg/dL HIGH RISK ?>200 mg/dL HDL Cholesterol 40 mg/dL [facility] Comment: DESIRABLE ?>55 mg/dL BORDERLINE ??35-55 mg/dL HIGH RISK ? <35 mg/dL Calculated LDL 144 mg/dL [facility] Comment: DESIRABLE ??<100 mg/dL BORDER LINE ??100-159 mg/dL HIGH RISK ?>160 mg/dL CHOL HDL RATIO (HISTORICAL) 5.1(H) 0.0 - 5.0 . [facility] VLDL (HISTORICAL) 41(H) 5 - 40 . [place] [facility] Comment: CC: OBED FLOOD MD BASIC,MG ADDED TO SPEC# [id number] BY LABELD 02/06/23 0830. 02/06/2023 5:38 AM EDT Michelirlalex Blot-Deep DO LAB BLOOD ORDERA BLES [facility] from Last 3 Months or Most Recently Relevant to Health Maintenance
--- OUTSIDE RECORDS SUMMARY | 2024-10-31 08:02 | XMS_ITS | Encounter Summary ---
Author Organization [employer] Address [address] [place] [address] Care Team Providers Care Installment Loan Collector Name Role Phone Unavailable Primary Care Provider Unavailabl e Encounter Details Date Type Department Care Team (Latest Contact Info) Description 05/05/2019 Hospital Encounter [facility] Internal Medicine and Pediatrics [address] [facility] [address] [place] [address] Zac Davidson, OPERATIONAL COMMUNICATION CHIEF [address] [place] [address] Unspecified abdominal pain Social History Tobacco Use [...] money to get more. Never true 08/31/2021 [facility] Answer Date Re corded How [...]
--- OUTSIDE RECORDS SUMMARY | 2024-10-31 08:02 | XMS_ITS | Encounter Summary ---
Author Organization [employer] Address [address] [place] [address] Care Team Providers Care Supervisor [employer] Name Role Phone Unavailable Primary Care Provider Unavailabl e Encounter Details Date Type Department Care Team (Latest Contact Info) Description 12/10/2019 Hospital Encounter [facility] Internal Medicine and Pediatrics [address] [facility] [address] [place] [address] Zac Davidson, HOSPICE CLINICAL MARKETER 2 [place] [address] Mixed hyperlipidemia Social History Tobacco Use Types [...]
--- OUTSIDE RECORDS SUMMARY | 2024-10-31 08:02 | XMS_ITS | Encounter Summary ---
Author Organization [employer] [facility] Address [address] [place] [address] Care Team Providers Care Plant Worker Name Role Phone Unavailable Primary Care Provider Unavailabl e Encounter Details Date Type Department Care Team (Late st Contact Info) Description 10/14/2020 2:46 PM EDT Hospital Encounter [facility] Internal Medicine and Pediatrics [address] [facility] [address] [place] [phone] Kelly Curran PA [address] [facility] [address] [place] [address] Social History Tobacco Use Types [...] money to get more. Never true 08/31/2021 [facility] Answer Date Re corded How [...]
--- OUTSIDE RECORDS SUMMARY | 2024-10-31 08:02 | XMS_ITS | Encounter Summary ---
Author Organization [facility] [facility] Address [address] [place] [address] Care Team Providers Care Pcts Name Role Phone Unavailable Primary Care Provider Unavailabl e Encounter Details Date Type Department Care Team (Late st Contact Info) Description 03/24/2019 Hospital Encounter [facility] Internal Medicine and Pediatrics [address] [facility] [address] [place] [phone] Cristin Hamilton, LOOKBACK COORDINATOR [address] [facility] [address] [place] [address] Calculus of kidney Social History Tobacco Use [...] getting things needed for daily living? No 03/02/202 2 Has the lack of transportati on kept [...] money to get more. Never true 08/31/2021 [facility] Answer Date Re corded How [...]
--- OUTSIDE RECORDS SUMMARY | 2024-10-31 08:02 | XMS_ITS | Clinical Summary ---
Author Organization [address] [place] [address] [place] [phone] Phone Care Team Providers Care Material Manager Name Role Phone Ryan Rocha MD Primary [...] Description 08/11/2024 3:45 PM EST Office Visit [facility] [address] [place] [address] Flip Gillespie MD Testis mass (Primary Dx) [...] Arthritis Mother Loree Heart disease Mother Loree [place] Mother Loree Cervical cancer Sister Urolithiasis Sister [...] money to get more. Never true 08/31/2021 [facility] Answer Date Re corded How [...] - Risk 3-dose series) 2021 RSV Immunization Adult Patients (1 - Risk 60-74 years 1-dose series) 2021 Hypertension/CHF/CAD Annual BMP Blood Test 10/14/2021 10/14/2020 COVID-19 Vaccine ( season) 2024 03/23/2022, 10/22/2021, 06/21/2021, Additional history exists Influenza Vaccine (Season Ended) 2025 03/23/2022 Cholesterol Screening (Lipid Panel) 08/28/2025 08/28/2020 [...] age to complete this topic Meningococcal B Vaccine Aged Out No l onger eligible based on patient's age to complete [...] Narrative 08/11/2024 4:14 PM EST 122 ml Flip Gillespie MD [facility] US PROCEDURES Final Result * Annual BMP Blood Test (10/14/2020) Annual BMP Blood Test abstracted Historical Provider HEALTH MAINTENANCE Final Result * (ABNORMAL) Lipid panel (08/28/2020) LDL/HDL Ratio 6(A) <=5 Triglycerides 210(A) <=150 mg/dL Cholesterol 221(A) <=200 mg/dL HDL 38(A) >=55 mg/dL LDL Cholesterol 156(A) <=100 mg/dL Blood Topography not assigned / Unknown Historical Provider MD LAB BLOOD ORDERABLES Radha l Result * Colonoscopy (07/05/2018) Colonoscopy no interpreta tion-abstr acted Anatomical Region Laterality Modality Other Historical Provider HEALTH MAINTENANCE Final Result from Last 3 Months or Most Recently Relevant to Health Maintenance Insurance [place] [address] Care Teams Material Manager Relationship Specialty Start Date End Date Ryan Rocha MD [address] [place] [phone] PCP - General Internal Medicine 05/30/23
--- OUTSIDE RECORDS SUMMARY | 2024-10-31 08:02 | XMS_ITS | Encounter Summary ---
Author Organization [employer] Address [address] [place] [address] Care Team Providers Care Portable Track Line Marker Name Role Phone Unavailable Primary Care Provider Unavailabl e Encounter Details Date Type Department Care Team (Latest Contact Info) Description 03/26/2019 Hospital Encounter [facility] Internal Medicine and Pediatrics [address] [facility] [address] [place] [phone] Eddie Taylor MD [address] [facility] [address] [place] [address] Essential (primary) hypertension Social History [...] money to get more. Never true 08/31/2021 [facility] Answer Date Re corded How [...]
--- OUTSIDE RECORDS SUMMARY | 2024-10-31 08:02 | XMS_ITS | Encounter Summary ---
Author Organization [facility] [facility] Address [address] [place] [address] Care Team Providers Care Crystal Lapper Name Role Phone Unavailable Primary Care Provider Unavailabl e Encounter Details Date Type Department Care Team (Latest Contact Info) Description 05/30/2019 Hospital Encounter [facility] Internal Medicine and Pediatrics [address] [facility] [address] [place] [address] Zac Davidson, POST ACUTE CARE NURSE 2 [place] [address] Unspecified symptoms and signs involving the genitourinary [...] money to get more. Never true 08/31/2021 [facility] Answer Date Re corded How [...]
--- OUTSIDE RECORDS SUMMARY | 2024-10-31 08:02 | XMS_ITS | Encounter Summary ---
Author Organization [employer] Address [address] [place] [address] Care Team Providers Care Instrument Installer Name Role Phone Unavailable Primary Care Provider Unavailabl e Encounter Details Date Type Department Care Team (Latest Contact Info) Description 05/15/2019 Hospital Encounter [facility] Internal Medicine and Pediatrics [address] [facility] [address] [place] [address] Zac Davidson, DAMPENER 2 [place] [address] Unspecified abdominal pain Social History Tobacco Use [...] to get more. Never true 08/31/2021 [facility] Answer Date Re corded How [...]
--- OUTSIDE RECORDS SUMMARY | 2024-10-31 08:02 | XMS_ITS | Encounter Summary ---
Author Organization [facility] [place] [address] Care Team Providers Care Clinical Review Specialist Name Role Phone Unavailable Primary Care Provider Unavailabl e Encounter Details Date Type Department Care Team (Late st Contact Info) Description 10/29/2019 Hospital Encounter [facility] HISTORIC ENCOUNTERS EASTERN CONVERSION ONLY Cristin Hamilton, BENCH WORKER [address] [facility] [address] [place] [address] Unspecified hydronephrosis Social History Tobacco Use Types [...] money to get more. Never true 08/31/2021 [facility] Answer Date Re corded How [...] EDT Narrative 10/29/2019 2:27 PM EDT EXAMINATION: [phone] - NM RENAL SCAN W/PHARM INTERV WORKING [...] Note Olivier Eldridge MD - 07/09/2020 EXAMINATION: [phone] - ZB RENAL SCAN W/PHARM INTERV WORKING DIAGNOSIS: hydeophrosis [...] on Oct 29 2019 2:25P Cristin Paniagua BENCH WORKER IMG NM PROCEDURES Final Resu lt documented in this encounter Visit Diagnoses Diagnosis Unspecified hydronephrosis documented in this encounter
--- OUTSIDE RECORDS SUMMARY | 2024-10-31 08:02 | XMS_ITS | Encounter Summary ---
Author Organization [facility] Address [address] [place] [address] Phone Care Team Providers Care Transport Analyst Name Role Phone Unavailable Primary Care Provider Unavailabl e Encounter Details Date Type Department Care Team (Latest Contact Info) Description 10/26/2024 Travel Social History Tobacco Use Types Packs/Day Years Used Date Smoking Tobacco: Never Smokeless Tobacco: Never Alcohol Use Standard Drinks/Week Comments Yes 0 (1 standard drink = 0.6 oz pur e alcohol) Sex and Gender Information Value Date Recorded Sex Assigned at Not on file Gender Identity Not on file Sexual Orientation Not on file documented as of this encounter Plan of Treatment Not on file documented as of this encounter Visit Diagnoses Not on filedocumented in this encounter
--- OUTSIDE RECORDS SUMMARY | 2024-10-31 08:02 | XMS_ITS | Encounter Summary ---
Author Organization [facility] Address [address] [place] [address] Care Team Providers Care Flatbed Company Driver Name Role Phone Unavailable Primary Care Provider Unavailabl e Encounter Details Date Type Department Care Team (Latest Contact Info) Description 09/17/2019 Hospital Encounter [facility] Internal Medicine and Pediatrics [address] [facility] [address] [place] [address] Zac Davidson, VIDEO RENTAL CLERK [address] [place] [address] Unspecified symptoms and signs involving the genitourinary [...]
--- OUTSIDE RECORDS SUMMARY | 2024-10-31 08:02 | XMS_ITS | Encounter Summary ---
Author Organization [employer] Address [address] [place] [address] Care Team Providers Care Sub Prior Name Role Phone Unavailable Primary Care Provider Unavailabl e Encounter Details Date Type Department Care Team (Latest Contact Info) Description 08/11/2019 Hospital Encounter [facility] Internal Medicine and Pediatrics [address] [facility] [address] [place] [address] Zac Davidson, INSIDE FINISHER 2 [place] [address] Mixed hyperlipidemia Social History Tobacco Use Types [...]
--- OUTSIDE RECORDS SUMMARY | 2024-10-31 08:02 | XMS_ITS | Encounter Summary ---
Author Organization [facility] Address [address] [place] [address] Care Team Providers Care Director Public Name Role Phone Unavailable Primary Care Provider Unavailabl e Encounter Details Date Type Department Care Team (Latest Contact Info) Description 03/28/2019 Hospital Encounter [facility] HISTORIC ENCOUNTERS EASTERN CONVERSION ONLY Flip Gillespie MD [address] [facility] [address] [place] [address] Hydronephrosis with renal and ureteral [...] money to get more. Never true 08/31/2021 [facility] Answer Date Re corded How [...] Associated Diagnosis Comments CHEST AP - PORTABLE (82582) Routine 03/28/2019 10:04 AM EDT ABDOMEN-SUPINE/KUB- PORTABLE ([id number]) Routine 03/28/2019 10:02 AM EDT documented in this encounter Results * CHEST AP - PORTABLE ([id number]) (03/28/2019 10:04 AM EDT) Anatomical Region Laterality Modality Radiographic Maribel ging 03/28/2019 9:54 AM EDT Narrative 03/28/2019 10:05 AM EDT EXAMINATION: [phone] - CR CHEST AP-PORTABLE WORKING DIAGNOSIS: ?? [...] Note Irwin Thayer MD - 07/09/2020 EXAMINATION: [phone] - TQ CHEST AP-PORTABLE WORKING DIAGNOSIS: pre op Comparison: [...] IMG XR PROCEDURES Final Result * ABDOMEN-SUPINE/KUB-PORTABLE ([id number]) (03/28/2019 10:02 AM EDT) Anatomical Region Laterality Modality Radiographic Maribel ging 03/28/2019 9:14 AM EDT Narrative 03/28/2019 10:02 AM EDT EXAMINATION: [phone] - DR SUPINE ABDOMEN-PORTABLE WORKING DIAGNOSIS: ?? Pre OP [...] on Mar 28 2019 10:00A Procedure Note Irwin Thayer MD - 07/09/2020 EXAMINATION: [phone] - CR SUPINE ABDOMEN-PORTABLE WORKING DIAGNOSIS: Pre [...]
--- OUTSIDE RECORDS SUMMARY | 2024-10-31 08:02 | XMS_ITS | Encounter Summary ---
Author Organization [facility] Address [address] [place] [address] Phone Care Team Providers Care Press Operator Assistant Name Role Phone Unavailable Primary Care Provider Unavailabl e Reason for Visit * Reason Comments Fall Encounter Details Date Type Department Care Team (Late st Contact Info) Description 10/26/2024 10:05 PM EDT - 10/27/2024 12:49 AM EDT Emergency [facility] EMERGENCY DEPARTMENT [address] [place] [address] [place] [address] Abebe Hart MD [address] [place] [phone] Closed fracture of multiple ribs of left side, initial encounter (Primary Dx) Discharge Disposition: DISCHARGED TO HOME/ASSISTED LIVING/SELF CARE (ROUTINE DISCHARGE) Social History Tobacco Use Types Packs/Day Years [...] on file documented as of this encounter Last Filed Vital Signs Vital Sign Reading [...] Mass Index 25.69 10/26/2024 10:03 PM EDT documented in this encounter Discharge Instructions * Discharge Instructions* Abebe Hart MD - 10/27/2024 12:30 AM EDT You were diagnosed with acute nondisplaced fractures of the left posterolateral 10th and 11th ribs. Take Tylenol 975 mg every 6 hours as needed for pain. Take ibuprofen 400 mg to 600 mg every 6 hours as needed for pain. You can alternate these medications so that you take a medication every 3 hours. For example, take Tylenol at noon, ibuprofen at 3 PM, Tylenol 6 PM, and Profen at 9 PM. I sent a few tablets of oxycodone to your pharmacy as needed for breakthrough pain. Take oxycodone 5 mg every 8 hours as needed. You can place an [id number] lidocaine patch over the area of maximal pain, 1 patch daily, useas instructed on the packaging. Follow-up with your primary care physician during your previously scheduled appointment this week. Use the provided incentive spirometer, take several deep breaths up to the 2400 ashtyn at least several times per hour every hour while awake Return to the emergency department if you develop any new or worsening symptoms including chest pain, shortness of breath, abdominal pain, nausea, vomiting, fevers, cough, severe/intolerable pain, nor any other concerning symptoms at all. documented in this encounter Medications at Time of Discharge Medication Sig Dispensed Refills Start Date End Date amLODIPine (Norvasc) 2.5 MG tablet Take 1 tablet by mouth once daily. 10/20/2024 lisinopril 20 MG tablet Lisinopril 20 MG Oral Tablet Refills: 0 Active oxyCODONE (Roxicodone) 5 MG immediate release tablet Take 1 tablet (5 mg) by mouth every 8 (eight) hours if needed for severe pain for up to 5 doses. Max Daily Dose = 15 mg 5 tablet 10/27/2024 documented as of this encounter ED Notes * Abebe Hart MD - 10/27/2024 12:32 AM EDT HPI Chief Complaint Patient presents with Fall 64-year-old male patient presents to the emergency department chief complaint of left chest wall pain and left abdominal pain after fall down 5 stairs onto a 5 gallon bucket. Has some mild ecchymosisand very superficial abrasion over his left lower posterolateral chest wall. -HS, -LOC, -AC. No shortness of breath. Was nauseous immediately after the fall, resolved. No vomiting. No headache. No neck pain. No other complaints. Patient History Past Medical History: Diagnosis Date Hypertension Past Surgical History: Procedure Laterality Date APPENDECTOMY KNEE SURGERY No family history on file. Social History Tobacco Use Smoking status: Never Smokeless tobacco: Never Substance Use Topics Alcohol use: Yes Drug use: Never Review of Systems Review of Systems See HPI Physical Exam ED Triage Vitals Temp Heart Rate Resp BP 10/26/24 2203 10/26/24 2203 10/26/24 2203 10/26/24 220 36.7 ??C (98.1 ??F) 61 18 135/83 SpO2 Temp Source Heart Rate Source Patient Position 10/26/24 2203 10/26/24 2203 10/26/24 2358 -- 95 % Tympanic SpO2 BP Location FiO2 (%) -- -- Physical Exam Constitutional: This is a well-nourished, well-developed, 64 y.o. male patient who is pleasant, cooperative, and in no acute distress Head: Normocephalic/atraumatic. Eyes: No conjunctival injection. Sclerae anicteric. ENT: Moist mucous membranes. No drainage or discharge. Neck: Trachea midline. Neck is supple. Cardiac: Regular rate and rhythm. Distal extremities warm and well perfused. No peripheral edema. Chest wall: There is mild ecchymosis and very superficial abrasion over his left lower posterolateral chest wall Respiratory: Non-labored respirations. Speaking in full sentences. Lungs are clear to auscultation bilaterally. GI: Soft, nontender, nondistended. Musculoskeletal: Moving all extremities. No gross limb deformities. Spine: No midline tenderness, step-offs, or deformities. Skin: See chest wall exam Neuro: NEURO: Alert & following commands. Answers questions appropriately. Face symmetric. Normal/appropriate speech. Moving all extremities equally and spontaneously. CN II-XII intact. 5/5 strength x 4 extremities. Normal finger to nose. Normal heel to ambrocio. No pronator drift. Sensation intactin all 4 extremities. Psych: Appropriate mood and affect. Medical Decision Making 64-year-old male patient presents to the emergency department chief complaint of left chest wall pain and left abdominal pain after fall down 5 stairs onto a 5 gallon bucket. Has some mild ecchymosisand very superficial abrasion over his left lower posterolateral chest wall. -HS, -LOC, -AC. No shortness of breath. Was nauseous immediately after the fall, resolved. No vomiting. No headache. No neck pain. No other complaints. Vital signs are reassuring. Heart regular rate and rhythm. Lungs are clear to auscultation. Abdomensoft, nontender, nondistended. There is mild ecchymosis and very superficial abrasion over his leftlower posterolateral chest wall. No other injuries or deformities appreciated. No focal neurological deficits. Plan: Trauma panel labs, CT chest abdomen pelvis, reassess, defers analgesia at this time I reviewed the labs, they are reassuring CT chest, abdomen, and pelvis notable for acute nondisplaced fractures of the left posterolateral 10th and 11th ribs. No other acute traumatic injury identified. ED Course as of 10/27/245 SunOct 27, [address] CAP IMPRESSION: 1. Acute nondisplaced fractures left posterolateral 10th and 11th ribs. 2. Otherwise, no evidence of an acute intrathoracic abnormality. 3. No evidence of an acute abdominopelvic abnormality. [CW] 0026 Patient able to pull 2500 on incentive spirometer [CW] 0030 Patient comfortable with discharge home. Instructed to use Tylenol and ibuprofen every 6 hoursas needed for pain. Also sent a few tablets of oxycodone as needed for breakthrough pain. Lidoderm patches [id number] as needed. Follow-up with PCP within 1 to 2 weeks. Return for new or worsening symptoms. Discussed discharge instructions and return precautions with the patient. The patient verbalized understanding of instructions. All questions answered. [CW] ED Course User Index [CW] Abebe Hart MD Diagnoses as of 10/27/245 Closed fracture of multiple ribs of left side, initial encounter Abebe Hart MD 10/27/24 0456 * Ruby Ruiz RN - 10/26/2024 9:59 PM EDT Fall down a couple of stairs and landed on a 5 gal pale- left rib pain documented in this encounter Miscellaneous Notes * Patient Resources - AVS - Abebe Hart MD - 10/27/2024 12:32 AM EDT Images from the original note were not included. [id number] Rib Fracture You broke 1 or more ribs. This is called a rib fracture. Rib fractures don't need a cast like otherbones. Healing time is different for each person. Most rib fractures take weeks to months. The first 3 to 4 weeks will be the most painful. During this time deep breathing, coughing, or changing position from sitting to lying down, may cause the broken ends to move slightly. Home care ?? Rest. Don't do any heavy lifting or strenuous exertion until the pain goes away. ?? It hurts to breathe when you have a broken rib. This puts you at risk of getting pneumonia from poor airflow through your lungs. To prevent this: o Take 10 to 15 deep breaths at least 4 times a day, or as directed. Breathe out through pursed lips as if you are blowing up a balloon. If possible, actually blow up a balloon or a rubber glove. This exercise builds up pressure inside the lung and prevents collapse of the small air sacs of the lung. This exercise may cause some pain at the site of injury. This is normal. o You may have gotten a breathing exercise device called an incentive spirometer. Use it at least 4times a day, or as directed. o Holding a pillow or similar soft brace against the fracture site can help reduce your discomfort while using the spirometer or when coughing or sneezing. ?? Apply an ice pack over the injured area for 15 to 20 minutes every 1 to 2 hours. Do this for thefirst 24 to 48 hours. To make an ice pack, put ice cubes in a plastic bag that seals at the top. Wrap the bag in a clean, thin towel or cloth. Never put ice or an ice pack directly on your skin. Keepusing ice packs as needed to ease pain and swelling. ?? You may use xevt-kkn-jowuurr pain medicine to control pain, unless another pain medicine was prescribed. If you have chronic liver or kidney disease or ever had a stomach ulcer, gastrointestinal bleeding, or take a blood thinner, talk with your healthcare provider before using these medicines. ?? If your pain is not controlled, contact your provider. Sometimes a stronger pain medicine may beneeded. A nerve block can be done in case of severe pain. It will numb the nerve between the ribs. ?? Follow your healthcare provider's instructions on returning to normal activities. Follow-up care Follow up with your healthcare provider as advised. In rare cases, a broken rib will cause complications in the first few days that may not be clearly seen during your initial exam. This can include collapsed lung, bleeding around the lung or into the belly (abdomen), or pneumonia. So watch for thesigns below. If X-rays were taken, you will be told of any new findings that may affect your care. Call 911 Call 911 if you have: ?? Dizziness, weakness or fainting ?? Shortness of breath with or without chest discomfort ?? Cough, coughing up blood, or abdominal pain that is new or gets worse. ?? Chest pain ?? Discomfort in other areas of your upper body, such as your shoulders, jaw, neck, or arms. When to get medical advice Call your healthcare provider right away if any of these occur: ?? Increasing chest pain with breathing ?? Fever of 100.4??F (38??C) or above, or as directed by your provider ?? Chills ?? Congested cough, nausea, or vomiting ?? Difficulty with routine activities, such as dressing, taking a shower, and climbing stairs. ?? Pain that is not helped by your medicines. Last Reviewed Date: 2024 00:00:00 ?? [id number] [employer]. All rights reserved. This information is not intended as a substitute for professional medical care. Always follow your healthcare professional's instructions. documented in this encounter Plan of Treatment Not on file documented as of this encounter Procedures Procedure Name Priority Date/Time Associated Diagnosis Comments EXTRA URINE CONTAINERS Routine 12:01 AM EDT RUBY TOP Routine 10/27/2024 12:01 AM EDT URINE MICROSCOPIC STAT 10/27/2024 12: 01 AM EDT URINALYSIS WITH REFLEX MICROSCOPIC STAT 10/27/2024 12:[address] CHEST ABDOMEN PELVIS W CONTRAST STAT 10/26/2024 11:54 PM EDT ECG 12 LEAD STAT 10/26/2024 11:20 PM EDT GOLD TOP Routine 10/26/2024 10:38 PM EDT GOLD TOP Routine 10/26/2024 10:38 PM EDT LACTIC ACID WITH 3 HOUR REFLEX STAT 10/26/2024 10:38 PM EDT EXTRA TUBES Routine 10/26/2024 10:38 PM EDT LAVENDER TOP Routine 10/26/2024 10:38 PM EDT TYPE AND SCREEN STAT 10/26/2024 10:37 PM EDT AUTOMATED DIFFERENTIAL STAT 10:37 PM EDT COMPLETE BLOOD COUNT STAT 10/26/2024 10:37 PM EDT ABO CONFIRM QUESTION STAT 10/26/2024 10:37 PM EDT CBC AUTO DIFFERENTIAL STAT 10/26/2024 10:37 PM EDT CK WITH REFLEX TO CKMB - [facility] STAT 10/26/2024 10:37 PM EDT PROTIME-INR STAT 10/26/2024 10:37 PM EDT CKMB STAT 10/26/2024 10:37 PM EDT PTT STAT 10/26/2024 10:37 PM EDT TYPE AND SCREEN STAT 10/26/2024 10:37 PM EDT LIPASE STAT 10/26/2024 10:37 PM EDT AMYLASE STAT 10/26/2024 10:37 PM EDT COMPREHENSIVE METABOLIC PANEL STAT 10/26/2024 10:37 PM EDT documented in this encounter Results * Urine microscopic (10/27/2024 12:01 AM EDT) RBC None Seen None Seen, 0-2 /HPF 10/27/2024 12:34 AM EDT [facility] WBC 0-5 None Seen, 0-5 /HPF 10/27/2024 12:34 AM EDT [facility] Bacteria None Seen None Seen /HPF 10/27/2024 12:34 AM EDT [facility] Squamous Epithelial, Urine None Seen None Seen, Few /HPF 10/27/2024 12:34 AM EDT [facility] Hyaline Casts, Urine 0-2 None Seen, 0-2 /LPF 10/27/2024 12:34 AM EDT [facility] Urine Urine specimen obtained by clean catch procedure / Unknown Non-blood Collection / Unknown 10/27/2024 12:01 AM EDT 10/27/2024 12:08 AM EDT Abebe Hart MD LAB URINE ORDERABLES [facility] [address] [place] [address] * Ruby Top (10/27/2024 12:01 AM EDT) Extra Tube Hold for add-ons. 10/27/2024 2:01 AM EDT [facility] Comment:Auto resulted. Urine 10/27/2024 12:0 1 AM EDT 10/27/2024 12:10 AM EDT Abebe Hart MD LAB URINE ORDERABLES [facility] [address] [place] [phone] * (ABNORMAL) Urinalysis with reflex microscopic (10/27/2024 12:01 AM EDT) Color Yellow Yellow 10/27/2024 12:20 AM EDT [facility] Clarity Clear Clear 10/27/2024 12:20 AM EDT [facility] Specific Chicken, UA 1.026 1.003 - 1.030 10/27/2024 12:20 AM EDT [facility] Bilirubin Negative Negative 10/27/2024 12:20 AM EDT [facility] Ketones Trace(A) Negative 10/27/2024 12:20 AM EDT [facility] Blood Negative Negative 10/27/2024 12:20 AM EDT [facility] pH 6.5 5.0 - 8.0 pH 10/27/2024 12:20 AM EDT [facility] Leukocytes Negative Negative 10/27/2024 12:20 AM EDT [facility] Protein Negative Negative 10/27/2024 12:20 AM EDT [facility] Glucose Negative Negative 10/27/2024 12:20 AM EDT [facility] Urobilinogen 0.2 0.2, 1.0 mg/dL 10/27/2024 12:20 AM EDT [facility] Nitrite Negative Negative 10/27/2024 12:20 AM EDT [facility] Urine Urine specimen obtained by clean catch procedure / Unknown Non-blood Collection / Unknown 10/27/2024 12:01 AM EDT 10/27/2024 12:08 AM EDT Abebe Hart MD LAB URINE ORDERABLES [facility] [address] [place] [address] * CT Chest Abdomen Pelvis W Contrast [...] aggressive osseous lesion. Nondisplaced left lateral 10th [id number] rib fractures Chronic left posterior lateral seventh [...] CALCULATION (BAZETT) 400 ms GE MUSE P Layton 69 degrees GE MUSE R [place] -3 degrees GE MUSE T Wave [place] 10 degrees GE MUSE 10/26/2024 11:1 6 PM EDT 10/27/2024 5:14 PM EDT Impressions GE MUSE - 10/27/2024 5:14 PM EDT Normal sinus rhythm Baseline artifacts Possible old septal infarct When compared with ECG of 05-FEB-2023 22:21, No significant change Confirmed by Viri Lynch ([id number]) on 10/27/2024 5:14:25 PM Narrative Procedure Note Viri Lynch MD - 10/27/2024 IMPRESSION: Normal sinus rhythm Baseline artifacts Possible old septal infarct When compared with ECG of 05-FEB-2023 22:21, No significant change Confirmed by Viri Lynch ([id number]) on 10/27/2024 5:14:25 PM Abebe Hart MD ECG ORDERABLES Performing Organization Address [facility] [address] [facility] Co de Phone Number GE MUSE * Gold Top (10/26/2024 10:38 PM EDT) Extra Tube Hold for add-ons. 10/27/2024 12:01 AM EDT [facility] Comment:Auto resulted. Blood Venous blood / Unknown 10/26/2024 10:38 PM EDT 10/26/2024 10:52 PM EDT Abebe Hart MD LAB BLOOD ORDERABLES Performing Organization Address [facility] [address]/[facility] de Phone Number [facility] [address] [place] [phone] * Gold Top (10/26/2024 10:38 PM EDT) Extra Tube Hold for add-ons. 10/27/2024 12:01 AM EDT [facility] Comment:Auto resulted. Blood Venous blood / Unknown 10/26/2024 10:38 PM EDT 10/26/2024 10:52 PM EDT Abebe Hart MD LAB BLOOD ORDERABLES Performing Organization Address [facility] [address]/[facility] de Phone Number [facility] [address] [place] [phone] * Lavender Top (10/26/2024 10:38 PM EDT) Extra Tube Hold for add-ons. 10/27/2024 12:01 AM EDT [facility] Comment:Auto resulted. Blood Venous blood / Unknown 10/26/2024 10:38 PM EDT 10/26/2024 10:52 PM EDT Abebe Hart MD LAB BLOOD ORDERABLES Performing Organization Address City/[facility] [address]/ZIP Co de Phone Number [facility] [address] [place] [address] * Lactic acid with 3 hour reflex (10/26/2024 10:38 PM EDT) Lactate, Venous 1.6 0.5 - 2.0 mmol/L 10/26/2024 11:08 PM EDT [facility] Blood Venous blood / Unknown Venipuncture / Unknown 10/26/2024 10:38 PM EDT 10/26/2024 10:49 PM EDT Abebe Hart MD LAB BLOOD ORDERABLES Performing Organization Address City/[facility] [address]/[facility] Co de Phone Number [facility] [address] [place] [phone] * ABO Confirm Question (10/26/2024 10:37 PM EDT) Specimen Expiration Date 10/29/2024 11:59:00 PM EDT 10/26/2024 11:57 PM EDT [facility] B[facility]OD [facility] New Specimen Required NO 10/26/2024 11:57 PM EDT [facility] Blood Venous blood / Unknown Venipuncture / Unknown 10/26/2024 10:37 PM EDT 10/26/2024 10:49 PM EDT Abebe Hart MD LAB BLOOD BANK TEST ORDERABLES [facility] [address] [place] [address], [place] * CKMB (10/26/2024 10:37 PM EDT) CK-MB 5.0 <=6.0 ng/mL 10/26/2024 11:23 PM EDT [facility] CK MB MASS RATIO 2.0 0.0 - 6.0 ng/mL 10/26/2024 11:23 PM EDT [facility] Blood Venous blood / Unknown Venipuncture / Unknown 10/26/2024 10:37 PM EDT 10/26/2024 10:49 PM EDT Abebe Hart MD LAB BLOOD ORDERABLES [facility] [address] [place] [address] * (ABNORMAL) Automated Differential (10/26/2024 10:37 PM EDT) Lymphocytes % 15.6 13.0 - 41.0 % 10/26/2024 10:52 PM EDT [facility] Monocytes % 7.2 4.0 - 14.0 % 10/26/2024 10:52 PM EDT [facility] NRBC % 0.0 0.0 - 1.0 % 10/26/2024 10:52 PM EDT [facility] Neutrophils % 75.2 46.0 - 76.0 % 10/26/2024 10:52 PM EDT [facility] Eosinophils % 1.2 0.0 - 5.0 % 10/26/2024 10:52 PM EDT [facility] Basophils % 0.4 0.0 - 1.0 % 10/26/2024 10:52 PM EDT [facility] Immature Granulocytes % 0.4 0.0 - 0.4 % 10/26/2024 10:52 PM EDT [facility] Absolute Neutrophils 7.49(H) 1.70 - 7.00 10*3/uL 10/26/2024 10:52 PM EDT [facility] Absolute Lymphocytes 1.55 0.50 - 3.10 10*3/uL 10/26/2024 10:52 PM EDT [facility] Absolute Monocytes 0.72 0.20 - 1.10 10*3/uL 10/26/2024 10:52 PM EDT [facility] Absolute Eosinophils 0.12 0.00 - 0.30 10*3/uL 10/26/2024 10:52 PM EDT [facility] Absolute Basophils 0.04 0.00 - 0.10 10*3/uL 10/26/2024 10:52 PM EDT [facility] Absolute Immature Granulocytes 0.04(H) 0.00 - 0.03 10*3/uL 10/26/2024 10:52 PM EDT [facility] Absolute NRBC 0.00 0.00 - 0.01 10*3/uL 10/26/2024 10:52 PM EDT [facility] Blood Venous blood / Unknown Venipuncture / Unknown 10/26/2024 10:37 PM EDT 10/26/2024 10:49 PM EDT Abebe Hart MD LAB BLOOD ORDERABLES Performing Organization Address City/[facility] [address]/ZIP Co de Phone Number [facility] [address] [place] [address] * Type and Screen (10/26/2024 10:37 PM EDT) ABO/RH O Positive 10/26/2024 10:26 PM EDT [facility] Antibody Screen Negative 10/26/2024 10:26 PM EDT [facility] Comment:Reference range: Neg ative Specimen Expiration Date 10/29/2024 11:59:00 PM EDT 10/26/2024 10:26 PM EDT [facility] Blood Venous blood / Unknown Venipuncture / Unknown 10/26/2024 10:37 PM EDT 10/26/2024 10:49 PM EDT Abebe Hart MD LAB BLOOD BANK TEST ORDERABLES Performing Organization Address [facility] [address] [facility] Co de Phone Number [facility] [address] [place] [address], * Complete Blood Count (10/26/2024 10:37 PM EDT) WBC 10.0 3.4 - 10.5 10*3/uL 10/26/2024 10:52 PM EDT [facility] RBC 4.90 4.83 - 6.08 10*6/uL 10/26/2024 10:52 PM EDT [facility] Hemoglobin 14.8 13.7 - 17.5 g/dL 10/26/2024 10:52 PM EDT [facility] Hematocrit 44.4 40.0 - 51.0 % 10/26/2024 10:52 PM EDT [facility] MCV 90.6 79.0 - 92.0 fL 10/26/2024 10:52 PM EDT [facility] MCH 30.2 25.9 - 32.2 pg 10/26/2024 10:52 PM EDT [facility] MCHC 33.3 32.3 - 36.5 g/dL 10/26/2024 10:52 PM EDT [facility] RDW 12.4 11.8 - 14.7 % 10/26/2024 10:52 PM EDT [facility] Platelet Count 217 150 - 460 10*3/uL 10/26/2024 10:52 PM EDT [facility] MPV 9.8 9.4 - 12.4 fL 10/26/2024 10:52 PM EDT [facility] Blood Venous blood / Unknown Venipuncture / Unknown 10/26/2024 10:37 PM EDT 10/26/2024 10:49 PM EDT Abebe Hart MD LAB BLOOD ORDERABLES Performing Organization Address City/[facility] [address]/[facility] Co de Phone Number [facility] [address] [place] [phone] * APTT (10/26/2024 10:37 PM EDT) [facility] Partial Thromboplastin Time (aPTT) 28 27 - 37 SEC 10/26/2024 10:59 PM EDT [facility] Comment:APTT is a screening test only and is not to be used for Heparin therapy. Blood Venous blood / Unknown Venipuncture / Unknown 10/26/2024 10:37 PM EDT 10/26/2024 10:49 PM EDT Abebe Hart MD LAB BLOOD ORDERABLES Performing Organization Address [facility] [address]/[facility] Co de Phone Number [facility] [address] [place] [phone] * Protime-INR (10/26/2024 10:37 PM EDT) [facility] Protime 11.9 9.0 - 13.0 SEC 10/26/2024 10:59 PM EDT [facility] INR 1.1 0.9 - 1.2 10/26/2024 10:59 PM EDT [facility] Comment: SAMPLE CONDITION: RECOMMENDED ??INR: Prevent/Treat Deep Vein Thrombosis 2.0-3.0 Prevent Recurrent CO 2.5-3.5 Cardiac Valves, Mechanical 2.5-3.5 See references: ??Tyshawn TOPETE, ??NEJM, 324; 1865 (1990); ? CHEST, 108;2255 (1994) ? Blood Venous blood / Unknown Venipuncture / Unknown 10/26/2024 10:37 PM EDT 10/26/2024 10:49 PM EDT Abebe Hart MD LAB BLOOD ORDERABLES Performing Organization Address [facility] [address]/ZIP Co de Phone Number [facility] [address] [place] [phone] * CK with Relex to [facility] (10/26/2024 10:37 PM EDT) Creatine Kinase 248 39 - 308 U/L 10/26/2024 11:12 PM EDT [facility] Blood Venous blood / Unknown Venipuncture / Unknown 10/26/2024 10:37 PM EDT 10/26/2024 10:49 PM EDT Abebe Hart MD LAB BLOOD ORDERABLES [facility] [address] [place] [phone] * Amylase (10/26/2024 10:37 PM EDT) Amylase 42 28 - 100 U/L 10/26/2024 11:12 PM EDT [facility] Blood Venous blood / Unknown Venipuncture / Unknown 10/26/2024 10:37 PM EDT 10/26/2024 10:49 PM EDT Abebe Hart MD LAB BLOOD ORDERABLES [facility] [address] [place] [address] * Lipase (10/26/2024 10:37 PM EDT) Lipase 26 13 - 60 U/L 10/26/2024 11:12 PM EDT [facility] Blood Venous blood / Unknown Venipuncture / Unknown 10/26/2024 10:37 PM EDT 10/26/2024 10:49 PM EDT Abebe Hart MD LAB BLOOD ORDERABLES Performing Organization Address City/[facility] [address]/ZIP Co de Phone Number [facility] [address] [place] [address] * (ABNORMAL) Comprehensive Metabolic Panel (10/26/2024 10:37 PM EDT) Sodium 143 136 - 145 mmol/L 10/26/2024 11:08 PM EDT [facility] Potassium 4.0 3.5 - 5.1 mmol/L 10/26/2024 11:08 PM EDT [facility] Chloride 106 98 - 107 mmol/L 10/26/2024 11:08 PM EDT [facility] Carbon Dioxide 27 22 - 29 mmol/L 10/26/2024 11:08 PM EDT [facility] Anion Gap 10 5 - 15 mmol/L 10/26/2024 11:08 PM EDT [facility] Blood Urea Nitrogen (BUN) 13 6 - 20 mg/dL 10/26/2024 11:08 PM EDT [facility] Creatinine 0.8 0.7 - 1.2 mg/dL 10/26/2024 11:08 PM EDT [facility] eGFR 99 >=60 mL/min/1. 73m*2 10/26/2024 11:08 PM EDT [facility] Comment: Calculation based on the Chronic Kidney Disease Epidemiology Collaboration (CKD- EPI) equation refit without adjustment for race. *This eGRF calculation is based on the [id number]-[id number] creatinine equations for adults designed to estimate glomerular filtration rate (eGFR) without race adjustment factors. *This eGFR results are indexed to standard body surface area (BSA) 1.73 M(2). *eGFR results should only be used for adult patients >=18 years old. *Use of nonindexed eGFR values (mL/min) should be considered for drug dosing decisions. BUN/Creatinine Ratio 16.3 7.0 - 29.0 10/26/2024 11:08 PM EDT [facility] Glucose 110 82 - 115 mg/dL 10/26/2024 11:08 PM EDT [facility] Calcium 9.3 8.6 - 10.2 mg/dL 10/26/2024 11:08 PM EDT [facility] Total Protein 6.2(L) 6.4 - 8.2 g/dL 10/26/2024 11:08 PM EDT [facility] Albumin 4.2 3.4 - 5.0 g/dL 10/26/2024 11:08 PM EDT [facility] Alkaline Phosphatase 73 40 - 120 U/L 10/26/2024 11:08 PM EDT [facility] Alanine Aminotransferase (ALT) 28 0 - 41 U/L 10/26/2024 11:08 PM EDT [facility] Aspartate Aminotransferase (AST) 32 0 - 40 U/L 10/26/2024 11:08 PM T [facility] Bilirubin, Total 0.3 0.0 - 1.2 mg/dL 10/26/2024 11:08 PM EDT [facility] Globulin, Total 2.0 g/dL 11:08 PM EDT [facility] A/G Ratio 2.1 10/26/2024 11:08 PM EDT [facility] Blood Venous blood / Unknown Venipuncture / Unknown 10/26/2024 10:37 PM EDT 10/26/2024 10:49 PM EDT Abebe Hart MD LAB BLOOD ORDERABLES [facility] [address] [place] [phone] documented in this encounter Visit Diagnoses Diagnosis Closed fracture of multiple ribs of left side, initial encounter- Primary documented in this encounter Administered Medications Inactive Administered Medications - up to 3 most recent administrations Medication Order MAR Action Action Date Dose Rate Site acetaminophen (Tylenol) tablet 975 mg 975 mg, Oral, Once, On 10/26/24 at 2235, For 1 dose Given 10/26/2024 10:35 PM EDT 975 mg iopamidol (Isovue-300) 61 % injection 100 mL 100 mL, Intravenous, Once in imaging, Starting on 10/26/24 at 2339, For 1 dose Given 10/26/2024 11:39 PM EDT 100 mL documented in this encounter Active and Recently Administered Medications Times are shown in EDT. Scheduled Medication Order 10/25/2024 10/26/2024 10/27/2024 acetaminophen (Tylenol) tablet 975 mg (COMPLETED) 975 mg, Oral, Once, On 10/26/24 at 2235, For 1 dose 2235 (Given - Provider: Tiffani Ellington, RN) iopamidol (Isovue-300) 61 % injection 100 mL (COMPLETED) 100 mL, Intravenous, Once in imaging, Starting on 10/26/24 at 2339, For 1 dose 2339 (Given - Provider: Gualberto Schilling RTR) documented in this encounter
[2024-10-31 08:05] VITALS: BP 145/71; PULSE 73; RESP 16; TEMP 36.7; O2SAT 98; BMI 27.0
[2024-10-31 08:14] VITALS: BP 130/70
== END 2024-10-31 08:31 | disposition home or self-care (01) ==
LOC: HO.HMCFM 07:57
PROVIDERS: PCP Nurse Practitioner Family; Visit Provider Nurse Practitioner Family
DX: Z00.00 Encounter for general adult medical examination without abnormal findings (principal); I10 Essential (primary) hypertension; E78.5 Hyperlipidemia, unspecified; R07.81 Pleurodynia; Z71.85 Encounter for immunization safety counseling

== ENCOUNTER → 2024-10-31 07:57 | Outpatient (BNVA) | payer OTHER, SELFPAY | PROVIDERS: PCP Nurse Practitioner Family; Visit Provider Nurse Practitioner Family | DX: Z00.00 Encounter for general adult medical examination without abnormal findings (principal); I10 Essential (primary) hypertension; E78.5 Hyperlipidemia, unspecified; R07.81 Pleurodynia; Z71.85 Encounter for immunization safety counseling | CPT/HCPCS: 96127 ==

== ENCOUNTER 2025-01-05 08:28 | Outpatient (AMB) | payer OTHER, SELFPAY ==
--- NOTE | 2025-01-05 08:37 | A.OFFPC_ITS ---
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 Cleaner Required: No Allergies doxycycline Allergy (Mild, Verified 01/05/25 08:48) stomach problems cillins Allergy (Mild, Uncoded 01/05/25 08:48) Rash Medication List - Last Reconciled 01/05/25 by Aakash George CNP amlodipine 2.5 mg PO DAILY 30 days lisinopril 10 mg PO DAILY 30 days Tobacco use date assessed: 01/05/25 Dental Screening Dental Screen Date: 01/05/25 Did you have a dental visit in the last 12 months?: Yes Did you have a dental problem in the last 6 months where you did not have access to dental care?: No Was dental information given to patient?: Patient has dentist HPI HPI Comments History of Present Illness Details 64-year-old male presents for hypertensi on, hyperlipidemia, and recent ED discharge follow-up. He admits to taking his medications as prescribed without adverse reactions. He takes OTC Prilosec for GERD. He denies acute symptoms at this time. He was evaluated at [facility] ED on 12/24/2024 for complaints of irregular pulse with intermittent low heart rate readings and GERD. His heart rate was monitored in consistently around 70 at rest with ongoing frequent PVCs every 3rd or 4th beats typically but sometimes longer. No bigeminy. Labs and chest x-ray were unremarkable. He was discharged home with instructions to follow-up with his PCP for cardiology referral. 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 Current occupational exposures/hazards: No Cognitive needs: No Hearing needs: No Vision needs: No Questionnaire Thrive Questionnaire Date Thrive assessed: 08/07/24 I am a: Patient What is your living situation today?: I have a steady place to live Within the past 12 months, did the food you bought not last and you didn't have the money to get more?: Never true Within the past 12 months, did you worry whether your food would run out before you got money to buy more?: Never true Do you have trouble paying for medicines?: No Do you have trouble getting transportation to medical appointments?: No Do you have trouble paying your heating and electricity bill?: No Do you have trouble taking care of your child, family member or friend?: No Do you have trouble with day-to-day activities such as bathing, preparing meals, shopping, managing finances, etc.?: No Are you currently unemployed and looking for a job?: No Are you interested in more education?: No Please select the resources that you would like help with: None Currently or been in a relationship where the following occur: No concerns reported THRIVE Score: 0 JASWINDER-7 AMB Questionnaire JASWINDER-7 Date JASWINDER - 7 assessed: 10/31/24 Source: Developed by Drs. Jacob Armstrong, Ann Johnson, Kishore Cruz and colleagues, with an educational jada from [employer]. Review of Systems Const Details: Const Denies chills, Denies fatigue, Denies fever(s), Denies headache(s) and Denies weakness ENT Denies dizziness and Denies headache(s) Card Denies chest pain, Denies lightheadedness, Denies dyspnea and Denies other (Palpitations) Resp Denies cough, Denies dyspnea, Denies wheezing and Denies other ( shortness of breath) GI Denies abdominal pain, Denies melena, Denies hematochezia, Denies change in bowel habits, Denies dyspepsia and Denies nausea Denies hematuria and Denies dysuria Musc Denies abnormal gait, Denies myalgias, Denies arthralgias, Denies numbness and Denies tingling Skin/Breast Denies rash, Denies unusual bruising and Denies wounds Neuro Denies abnormal gait, Denies dizziness, Denies headache(s), Denies memory loss, Denies numbness, Denies Sensory deficit (Neuro), Denies tingling and Denies weakness Psych Denies anxiety, Denies depression, Denies memory loss Endo Denies cold intolerance, Denies fatigue, Denies heat intolerance, Denies polydipsia and Denies polyuria Aller/Immun Denies wheezing Physical exam (Primary Care) Tobacco/Smoking Status: Tobacco use Status Tobacco use date assessed 10/31/24 01/05/25 08:37 Patient Tobacco Use Status Never used Tobacco 01/05/25 08:37 e-Cigarette/Vaping Use Never Used 01/05/25 08:37 Thrive Assessment: Date of Thrive Assessment Date Thrive assessed 08/07/24 01/05/25 08:37 Currently or been in a relationship where the following occur: No concerns reported Const Other: General: no acute distress and well developed Nutritional Appearance: well nourished Orientation/consciousness: patient oriented x3 [facility] Head: Yes normocephalic and Yes atraumatic Eyes General: appearance normal, both eyes and all related structures Pupils: Equal, round and reactive pupils present EOM: EOMs intact bilaterally Resp Effort & Inspection: normal respiratory effort Auscultation: clear to auscultation bilaterally Cardio Rate: regular rate Rhythm: regular rhythm Heart sounds: S1 normal heart sound present, S2 normal heart sound present, no gallops, no murmurs and no rubs GI Palpation (GI): No Abdominal aortic bruit present, Soft to palpation, nontender, No hepatosplenomegaly present and No Rebound tenderness present Auscultation: normal bowel sounds General: Yes no CVA tenderness Back/Spine/Pelvis Back: no CVA tenderness Cervical Spine: cervical ROM normal and No Cervical spine tenderness Thoracic/Lumbar Spine: thoraco-lumbar ROM normal, No pain with thoraco-lumbar ROM, No thoracic spinal tenderness and No lumbar spinal tenderness Extrem General: Yes normal to inspection, No edema and No calf tenderness Skin General: warm and dry. Normal skin color. Normal skin turgor Neuro General: patient oriented x3, gait normal and no focal neuro deficit Cranial nerves: Yes Equal, round and reactive pupils present Cognition (Neuro): normal cognition Gait exam (Neuro): Normal gait present Sensory Exam: No Sensory deficit (Neuro) Psych Appearance: grossly normal Affect: normal affect Attitude: cooperative Thought process: Normal thought process present Coding Level of Care Code Est Pt Level 4 (31112) Diagnoses Hypertension I10 Hyperlipidemia E78.5 PVC (premature ventricular contraction) I49.3 GERD (gastroesophageal reflux disease) K21.9 Assessment & Plan Assessment & Plan (1) Hypertension: Code(s): I10 - Essential (primary) hypertension Category: Medical Plan: Blood pressure is 129/75, within goal of less than 140/90. Continue current treatment regimen. Low-sodium diet and routine exercise encouraged. Follow-up in 3 months or sooner with symptoms or concerns. Verbalized understanding and agreed with the plan. (2) Hyperlipidemia: Code(s): E78.5 - Hyperlipidemia, unspecified Category: Medical Plan: Recent LDL level in 12/29/2024 is elevated, 125, triglycerides, total cholesterol, and HDL levels are normal, 75, 181, and 42 respectively. Advised to limit foods high in saturated fat and avoid foods high in trans fat. Routine exercise encouraged. Fast for 10-12 hours, may drink water, and perform lipid panel blood work 2-3 days before next visit. Follow-up in 3 months. Verbalized understanding and agreed with the plan. (3) PVC (premature ventricular contraction): Code(s): I49.3 - Ventricular premature depolarization Category: Medical Plan: Asymptomatic. Declines cardiology referral at this time. Encouraged to follow-up with symptoms or concerns. Verbalized understanding and agreed with the plan. (4) GERD (gastroesophageal reflux disease): Code(s): K21.9 - Gastro-esophageal reflux disease without esophagitis Category: Medical Plan: Healthy diet encouraged. Advised to avoid fatty, greasy, or acidic foods. Continue to take Prilosec as needed. Follow-up with worsening or new symptoms. Verbalized understanding and agreed with the plan. Orders: Orders Lipid Panel 3 Months E78.5 - Hyperlipidemia, unspecified
--- OUTSIDE RECORDS SUMMARY | 2025-01-05 08:39 | XMS_ITS | Clinical Summary ---
Author Organization [address] [place] [address] [place] [phone] Phone Care Team Providers Care Car Construction Superintendent Name Role Phone Ryan Rocha MD Primary [...] on exam. Follow-up scrotal ultrasound is unchanged. Baseline alpha-fetoprotein is normal. Beta hCG was [...] intestinal infection History of Clostridioides difficile infection Immunizations Name Administration Dates Next Due Moderna [...] Arthritis Mother Loree Heart disease Mother Loree [place] Mother Loree Cervical cancer Sister Urolithiasis Sister kidney stone family history of cancer Sister wilma chavez [place] Relation Name Status Comments Father Mother [...] money to get more. Never true 08/31/2021 [facility] Answer Date Re corded How [...] 61 06/11/2023 2:51 PM EST Temperature 37.2 C (99 F) 08/31/2021 5:54 PM EST Respiratory Rate 16 [...] 06/21/2021, Additional history exists Influenza Vaccine (#1) 2025 03/23/2022 Cholesterol Screening (Lipid Panel) 08/28/2025 [...] Procedure Name Priority Date/Time Associated Diagnosis Comments ANNUAL BMP BLOOD TEST Routine 10/14/2020 LIPID PANEL Routine 08/28/2020 COLONOSCOPY Routine 07/05/2018 from Last 3 Months or Most Recently Relevant to Health Maintenance Results * Annual BMP Blood Test (10/14/2020) Pathologist [facility] Annual BMP Blood Test abstracted Historical Provider HEALTH MAINTENANCE Final Result * (ABNORMAL) Lipid panel (08/28/2020) [facility] LDL/HDL Ratio 6(A) <=5 Triglycerides 210(A) <=150 mg/dL Cholesterol 221(A) <=200 mg/dL HDL 38(A) >=55 mg/dL LDL Cholesterol 156(A) <=100 mg/dL Blood Topography not assigned / Unknown Historical Provider LAB BLOOD ORDERABLES Radha l Result * Colonoscopy (07/05/2018) Pathologist [facility] Colonoscopy no interpreta tion-abstr acted Anatomical Region Laterality Modality Other Historical Provider HEALTH MAINTENANCE Final Result from Last 3 Months or Most Recently Relevant to Health Maintenance Insurance [employer] Care Teams Car Construction Superintendent Relationship Specialty Start Date End Date Ryan Rocha MD [address] [place] [phone] PCP - General Internal Medicine 05/30/23
--- OUTSIDE RECORDS SUMMARY | 2025-01-05 08:39 | XMS_ITS | Clinical Summary ---
Author Organization [facility] Address [address] [place] [address] Phone Care Team Providers Care Sales Consultant Insurance Name Role Phone Unavailable Primary Care Provider Unavailabl e Allergies Active Allergy Reactions Criticality Noted Date Comments Penicillins Rash Medications lisinopril 20 MG tablet Lisinopril 20 MG Oral Tablet Refills: 0 Active Active amLODIPine (Norvasc) 2.5 MG tablet Take 1 tablet by mouth once daily. 5 Active oxyCODONE (Roxicodone) 5 MG immediate release tablet Take 1 tablet (5 mg) by mouth every 8 (eight) hours if needed for severe pain for up to 5 doses. Max Daily Dose = 15 mg 5 tablet 5 Active Encounters Date Type Department Care Team Description 10/26/2024 10:05 PM EDT - 10/27/2024 12:49 AM EDT Emergency [facility] EMERGENCY DEPART[facility] [address] [facility] 1st [place] [address] Abebe Hart MD Closed fracture of multiple ribs of left side, initial encounter (Primary Dx) Discharge Disposition: DISCHARGED TO HOME/ASSISTED LIVING/SELF CARE (ROUTINE DISCHARGE) 10/26/2024 Travel from Last 3 Months Immunizations Immunization Administration Dates Next Due Tdap 10/27/2024 Social History Tobacco Use Types Packs/Day Years Used Date Smoking Tobacco: Never Smokeless Tobacco: Never Tobacco Cessation:Counseling Given: Not Answered Alcohol Use Standard Drinks/Week Comments Yes 0 (1 standard drink = 0.6 oz pur e alcohol) Sex and Gender Information Value Date Recorded Sex Assigned at Not on file Legal Sex Male 4:35 AM EST Gender Identity Not on file Sexual Orientation Not on file Last Filed Vital Signs Vital Sign Reading Time Taken Comments Blood Pressure 151/82 10/26/2024 11:58 PM EDT Pulse 71 10/26/2024 11:58 PM EDT Temperature 36.9 C (98.5 F) 10/26/2024 11:58 PM EDT Respiratory Rate 18 10/26/2024 11:58 PM EDT [...] 1980 Pneumococcal Vaccine: 50+ Years (1 of 1 - PCV) 2011 Zoster Vaccines (1 of 2) 2011 Hepatitis B Vaccines (1 of 3 - Risk 3-dose series) 2021 Influenza Vaccine (#1) 2025 03/23/2022 Creatinine Level 10/26/2025 10/26/2024, 01/2023, 02/05/2023, Additional history exists Potassium Level 10/26/2025 10/26/2024, 08/0 01/2023, 02/05/2023, Additional history exists Lipid Panel 02/07/2028 02/06/2023, 08/2 , 09/10/2021 TD Vaccine (21+ Years) 10/27/2034 , 06/18/2019, 01/16/2012 HIB Vaccines Aged Out No longer eligi [...] Recently Relevant to Health Maintenance Results * Rbuy Top (10/27/2024 12:01 AM EDT) Extra Tube Hold for add-ons. 10/27/2024 2:01 AM EDT [facility] Comment:Auto resulted. Urine 10/27/2024 12:0 1 AM EDT 10/27/2024 12:10 AM EDT us Abebe Hart MD LAB URINE ORDERABLES Final Resu lt [facility] [address] [place] [phone] * Urine microscopic (10/27/2024 12:01 AM EDT) RBC None Seen None Seen, 0-2 /HPF 10/27/2024 12:34 AM EDT [facility] WBC 0-5 None Seen, 0-5 /HPF 10/27/2024 12:34 AM EDT [facility] Bacteria None Seen None Seen /HPF 10/27/2024 12:34 AM EDT [facility] Squamous Epithelial, Urine None Seen None Seen, Few /HPF 10/27/2024 12:34 AM EDT [facility] Hyaline Casts, Urine 0-2 None Seen, 0-2 /LPF 10/27/2024 12:34 AM EDT [facility] Urine Urine specimen obtained by clean catch procedure / Unknown Non-blood Collection / Unknown 10/27/2024 12:01 AM EDT 10/27/2024 12:08 AM EDT us Abebe Hart MD LAB URINE ORDERABLES Final Resu lt Performing Organization Address City/State/[facility] Co de Phone Number [facility] [address] [place] [address] * (ABNORMAL) Urinalysis with reflex microscopic (10/27/2024 12:01 AM EDT) Color Yellow Yellow 10/27/2024 12:20 AM T [facility] Clarity Clear Clear 10/27/2024 12:20 AM T [facility] Specific [place], UA 1.026 1.003 - 1.030 10/27/2024 12:20 AM T [facility] Bilirubin Negative Negative 10/27/2024 12:20 AM EDT [facility] Ketones Trace(A) Negative 10/27/2024 12:20 AM EDT [facility] Blood Negative Negative 10/27/2024 12:20 AM T [facility] pH 6.5 5.0 - 8.0 pH [facility] Leukocytes Negative Negative 10/27/2024 12:20 AM EDT [facility] Protein Negative Negative 10/27/2024 12:20 AM EDT [facility] Glucose Negative Negative 10/27/2024 12:20 AM EDT [facility] Urobilinogen 0.2 0.2, 1.0 mg/dL 10/27/2024 12:20 AM EDT [facility] Nitrite Negative Negative 10/27/2024 12:20 AM EDT [facility] Urine Urine specimen obtained by clean catch procedure / Unknown Non-blood Collection / Unknown 10/27/2024 12:01 AM EDT 10/27/2024 12:08 AM EDT us Abebe Hart MD LAB URINE ORDERABLES Final Resu lt [facility] [address] [place] [phone] * CT Chest Abdomen Pelvis W Contrast [...] by Eddie Paul MD 10/27/2024 7:30 AM Narrative 10/27/2024 [...] aggressive osseous lesion. Nondisplaced left lateral 10th [id number] rib fractures Chronic left posterior lateral seventh [...] MD 10/27/2024 7:30 AM Abebe Hart MD IM CT PROCEDURES Final Result * ECG 12 lead (10/26/2024 11:20 PM EDT) Diagnosis Class Normal GE MUSE Ventricular Rate 64 BPM GE MUSE Atrial Rate 64 BPM GE MUSE WI Interval 200 ms GE MUSE QRS DURATION 80 ms GE MUSE QT Interval 388 ms GE MUSE QTC CALCULATION (BAZETT) 400 ms GE MUSE P [place] 69 degrees GE MUSE R [place] -3 degrees GE MUSE T Wave [place] 10 degrees GE MUSE 10/26/2024 11:1 6 [...] Viri Lynch ([id number]) on 10/27/2024 5:14:25 PM us Abebe Hart MD ECG ORDERABLES Final Result Performing Organization Address City/[facility]/ZIP Co de Phone Number GE MUSE * Gold Top (10/26/2024 10:38 PM EDT) Only the most recent of2 resultswithin the time period is included. Extra Tube Hold for add-ons. 10/27/2024 12:01 AM EDT [facility] Comment:Auto resulted. Blood Venous blood / Unknown 10/26/2024 10:38 PM EDT 10/26/2024 10:52 PM EDT us Abebe Hart MD LAB BLOOD ORDERABLES Final Resu lt [facility] [address] [place] [phone] * Lactic acid with 3 hour reflex (10/26/2024 10:38 PM EDT) Lactate, Venous 1.6 0.5 - 2.0 mmol/L 10/26/2024 11:08 PM EDT [facility] Blood Venous blood / Unknown Venipuncture / Unknown 10/26/2024 10:38 PM EDT 10/26/2024 10:49 PM EDT Abebe Hart MD LAB BLOOD ORDERABLES Final Resu lt Performing Organization Address [facility] Co de Phone Number [facility] [address] [place] [phone] * Lavender Top (10/26/2024 10:38 PM EDT) Extra Tube Hold for add-ons. 10/27/2024 12:01 AM EDT [facility] Comment:Auto resulted. Blood Venous blood / Unknown 10/26/2024 10:38 PM EDT 10/26/2024 10:52 PM EDT Abebe Hart MD LAB BLOOD ORDERABLES Final Resu lt Performing Organization Address [facility] Phone Number [facility] [address] [place] [phone] * Type and Screen (10/26/2024 10:37 PM EDT) ABO/RH O Positive 10/26/2024 10:26 PM EDT [facility] Antibody Screen Negative 10/26/2024 10:26 PM EDT [facility] Comment:Reference range: Neg ative Specimen Expiration Date 10/29/2024 11:59:00 PM EDT 10/26/2024 10:26 PM EDT [facility] Blood Venous blood / Unknown Venipuncture / Unknown 10/26/2024 10:37 PM EDT 10/26/2024 10:49 PM EDT us Abebe Hart MD LAB BLOOD BANK TEST ORDERABLES Final Result Performing Organization Address [facility] Co de Phone Number [facility] [address] [place] [phone], [place] * (ABNORMAL) Automated Differential (10/26/2024 10:37 PM EDT) Lymphocytes % 15.6 13.0 - 41.0 % 10/26/2024 10:52 PM EDT [facility] Monocytes % 7.2 4.0 - 14.0 % 10/26/2024 10:52 PM EDT [facility] NRBC % 0.0 0.0 - 1.0 % 10/26/2024 10:52 PM EDT [facility] Neutrophils % 75.2 46.0 - 76.0 % 10/26/2024 10:52 PM EDT [facility] Eosinophils % 1.2 0.0 - 5.0 % 10/26/2024 10:52 PM EDT [facility] Basophils % 0.4 0.0 - 1.0 % 10/26/2024 10:52 PM EDT [facility] Immature Granulocytes % 0.4 0.0 - 0.4 % 10/26/2024 10:52 PM EDT [facility] Absolute Neutrophils 7.49(H) 1.70 - 7.00 10*3/uL 10/26/2024 10:52 PM EDT [facility] Absolute Lymphocytes 1.55 0.50 - 3.10 10*3/uL 10/26/2024 10:52 PM EDT [facility] Absolute Monocytes 0.72 0.20 - 1.10 10*3/uL 10/26/2024 10:52 PM EDT [facility] Absolute Eosinophils 0.12 0.00 - 0.30 10*3/uL 10/26/2024 10:52 PM EDT [facility] Absolute Basophils 0.04 0.00 - 0.10 10*3/uL 10/26/2024 10:52 PM EDT [facility] Absolute Immature Granulocytes 0.04(H) 0.00 - 0.03 10*3/uL 10/26/2024 10:52 PM EDT [facility] Absolute NRBC 0.00 0.00 - 0.01 10*3/uL 10/26/2024 10:52 PM [facility] Blood Venous blood / Unknown Venipuncture / Unknown 10/26/2024 10:37 PM EDT 10/26/2024 10:49 PM EDT us Abebe Hart MD LAB BLOOD ORDERABLES Final Resu lt [facility] [address] [place] [address] * Complete Blood Count (10/26/2024 10:37 PM EDT) WBC 10.0 3.4 - 10.5 10*3/uL 10/26/2024 10:52 PM EDT [facility] RBC 4.90 4.83 - 6.08 10*6/uL 10/26/2024 10:52 PM EDT [facility] Hemoglobin 14.8 13.7 - 17.5 g/dL 10/26/2024 10:52 PM EDT [facility] Hematocrit 44.4 40.0 - 51.0 % 10/26/2024 10:52 PM EDT [facility] MCV 90.6 79.0 - 92.0 fL 10/26/2024 10:52 PM EDT [facility] MCH 30.2 25.9 - 32.2 pg 10/26/2024 10:52 PM EDT [facility] MCHC 33.3 32.3 - 36.5 g/dL 10/26/2024 10:52 PM EDT [facility] RDW 12.4 11.8 - 14.7 % 10/26/2024 10:52 PM EDT [facility] Platelet Count 217 150 - 460 10*3/uL 10/26/2024 10:52 PM EDT [facility] MPV 9.8 9.4 - 12.4 fL 10/26/2024 10:52 PM EDT [facility] Blood Venous blood / Unknown Venipuncture / Unknown 10/26/2024 10:37 PM EDT 10/26/2024 10:49 PM EDT us Abebe Hart MD LAB BLOOD ORDERABLES Final Resu lt [facility] [address] [place] [address] * ABO Confirm Question (10/26/2024 10:37 PM EDT) Specimen Expiration Date 10/29/2024 11:59:00 PM EDT 10/26/2024 11:57 PM EDT [facility] New Specimen Required NO 10/26/2024 11:57 PM EDT [facility] Blood Venous blood / Unknown Venipuncture / Unknown 10/26/2024 10:37 PM EDT 10/26/2024 10:49 PM EDT Abebe Hart MD LAB BLOOD BANK TEST ORDERABLES Final Result Performing Organization Address City/[facility] Co de Phone Number [facility] [address] [place] [address], * CK with Relex to CKMB (10/26/2024 10:37 PM EDT) Creatine Kinase 248 39 - 308 U/L 10/26/2024 11:12 PM EDT [facility] Blood Venous blood / Unknown Venipuncture / Unknown 10/26/2024 10:37 PM EDT 10/26/2024 10:49 PM EDT Abebe Hart MD LAB BLOOD ORDERABLES Final Resu lt Performing Organization Address City/[facility] Co de Phone Number [facility] [address] [place] [address] * Protime-INR (10/26/2024 10:37 PM EDT) Protime 11.9 9.0 - 13.0 SEC 10/26/2024 10:59 PM EDT [facility] INR 1.1 0.9 - 1.2 10/26/2024 10:59 PM EDT [facility] Comment: SAMPLE CONDITION: RECOMMENDED INR: Prevent/Treat Deep Vein Thrombosis 2.0-3.0 Prevent Recurrent DC 2.5-3.5 Cardiac Valves, Mechanical 2.5-3.5 See references: [place], 324; 1865 (1990); CHEST, 108;2255 (1994) Blood Venous blood / Unknown Venipuncture / Unknown 10/26/2024 10:37 PM EDT 10/26/2024 10:49 PM EDT Abebe Hart MD LAB BLOOD ORDERABLES Final Resu lt Performing Organization Address [facility] Co de Phone Number [facility] [address] [place] [address] * CKMB (10/26/2024 10:37 PM EDT) CK-MB 5.0 <=6.0 ng/mL 10/26/2024 11:23 PM EDT [facility] CK MB MASS RATIO 2.0 0.0 - 6.0 ng/mL 10/26/2024 11:23 PM EDT [facility] Blood Venous blood / Unknown Venipuncture / Unknown 10/26/2024 10:37 PM EDT 10/26/2024 10:49 PM EDT Abebe Hart MD LAB BLOOD ORDERABLES Final Resu lt Performing Organization Address [facility] de Phone Number [facility] [address] [place] [phone] * APTT (10/26/2024 10:37 PM EDT) Partial Thromboplastin Time (aPTT) 28 27 - 37 SEC 10/26/2024 10:59 PM EDT [facility] Comment:APTT is a screening test only and is not to be used for Heparin therapy. Blood Venous blood / Unknown Venipuncture / Unknown 10/26/2024 10:37 PM EDT 10/26/2024 10:49 PM EDT us Abebe Hart MD LAB BLOOD ORDERABLES Final Resu lt Performing Organization Address [facility] Co de Phone Number [facility] [address] [place] [phone] * Lipase (10/26/2024 10:37 PM EDT) Lipase 26 13 - 60 U/L 10/26/2024 11:12 PM EDT [facility] Blood Venous blood / Unknown Venipuncture / Unknown 10/26/2024 10:37 PM EDT 10/26/2024 10:49 PM EDT us Abebe Hart MD LAB BLOOD ORDERABLES Final Resu lt Performing Organization Address [facility] Co de Phone Number [facility] [address] [place] [phone] * Amylase (10/26/2024 10:37 PM EDT) Amylase 42 28 - 100 U/L 10/26/2024 11:12 PM EDT [facility] Blood Venous blood / Unknown Venipuncture / Unknown 10/26/2024 10:37 PM EDT 10/26/2024 10:49 PM EDT us Abebe Hart MD LAB BLOOD ORDERABLES Final Resu lt Performing Organization Address [facility] Co de Phone Number [facility] [address] [place] [phone] * (ABNORMAL) Comprehensive Metabolic Panel (10/26/2024 10:37 PM EDT) Sodium 143 136 - 145 mmol/L 10/26/2024 11:08 PM EDT [facility] Potassium 4.0 3.5 - 5.1 mmol/L 10/26/2024 11:08 PM EDT [facility] Chloride 106 98 - 107 mmol/L 10/26/2024 11:08 PM EDT [facility] Carbon Dioxide 27 22 - 29 mmol/L 10/26/2024 11:08 PM EDT [facility] Anion Gap 10 5 - 15 mmol/L 10/26/2024 11:08 PM EDT [facility] Blood Urea Nitrogen (BUN) 13 6 - 20 mg/dL 10/26/2024 11:08 PM EDT [facility] Creatinine 0.8 0.7 - 1.2 mg/dL 10/26/2024 11:08 PM EDT [facility] eGFR 99 >=60 mL/min/1. 73m*2 10/26/2024 11:08 PM [facility] Comment: Calculation based on the Chronic Kidney Disease Epidemiology Collaboration (CKD- EPI) equation refit without adjustment for race. *This eGRF calculation is based on the 1936-PXR-HLH creatinine equations for adults designed to estimate glomerular filtration rate (eGFR) without race adjustment factors. *This eGFR results are indexed to standard body surface area (BSA) 1.73 M(2). *eGFR results should only be used for adult patients >=18 years old. *Use of nonindexed eGFR values (mL/min) should be considered for drug dosing decisions. BUN/Creatinine Ratio 16.3 7.0 - 29.0 10/26/2024 11:08 PM [facility] Glucose 110 82 - 115 mg/dL 10/26/2024 11:08 PM [facility] Calcium 9.3 8.6 - 10.2 mg/dL 10/26/2024 11:08 PM [facility] Total Protein 6.2(L) 6.4 - 8.2 g/dL 10/26/2024 11:08 PM [facility] Albumin 4.2 3.4 - 5.0 g/dL 10/26/2024 11:08 PM [facility] Alkaline Phosphatase 73 40 - 120 U/L 10/26/2024 11:08 PM [facility] Alanine Aminotransferase (ALT) 28 0 - 41 U/L 10/26/2024 11:08 PM [facility] Aspartate Aminotransferase (AST) 32 0 - 40 U/L 10/26/2024 11:08 PM [facility] Bilirubin, Total 0.3 0.0 - 1.2 mg/dL 10/26/2024 11:08 PM [facility] Globulin, Total 2.0 g/dL 11:08 PM [facility] A/G Ratio 2.1 10/26/2024 11:08 PM [facility] Blood Venous blood / Unknown Venipuncture / Unknown 10/26/2024 10:37 PM EDT 10/26/2024 10:49 PM EDT Abebe Hart MD LAB BLOOD ORDERABLES Final Resu lt [facility] [address] [place] [address] * (ABNORMAL) LIPID PANEL (HISTORICAL) (02/06/2023 5:38 AM EDT) Cholesterol 202 mg/dL [facility] Comment: DESIRABLE <200 mg/dL [place] 200-239 mg/dL HIGH RISK >240 mg/dL Triglyceride 204 mg/dL [facility] Comment: DESIRABLE <150 mg/dL [id number] mg/dL HIGH RISK >200 mg/dL HDL Cholesterol 40 mg/dL [facility] Comment: DESIRABLE >55 mg/dL BORDERLINE 35-55 mg/dL HIGH RISK <35 mg/dL Calculated LDL 144 mg/dL [facility] Comment: DESIRABLE <100 mg/dL [place] 100-159 mg/dL HIGH RISK >160 mg/dL CHOL HDL RATIO (HISTORICAL) 5.1(H) 0.0 - 5.0 . [facility] VLDL (HISTORICAL) 41(H) 5 - 40 . [place] [facility] Comment: CC: OBED FLOOD MD BASIC,MG ADDED TO SPEC# [id number] BY LABELD 02/06/23829. 02/06/2023 5:38 AM EDT Minerva Mendez DO LAB BLOOD ORDERABLES Fin al Result [facility] from Last 3 Months or Most Recently Relevant to Health Maintenance Insurance [employer]
[2025-01-05 08:41] VITALS: BP 129/75; PULSE 61; RESP 16; TEMP 36.8; O2SAT 99; BMI 25.6
== END 2025-01-05 09:07 | disposition home or self-care (01) ==
LOC: HO.HMCFM 08:28
PROVIDERS: PCP Nurse Practitioner Family; Visit Provider Nurse Practitioner Family
DX: I10 Essential (primary) hypertension (principal); E78.5 Hyperlipidemia, unspecified; I49.3 Ventricular premature depolarization; K21.9 Gastro-esophageal reflux disease without esophagitis

== ENCOUNTER 2025-05-08 13:00 | Outpatient (AMB) | payer OTHER, SELFPAY ==
--- NOTE | 2025-05-08 13:12 | A.OFFPC_ITS ---
Vital Signs 05/08/25 13:15 Height 5 ft 7 in Weight 170 lb 8 oz BMI 26.7 BP 133/71 Blood Pressure Location Rt brachial Position Sitting Respiration 16 Pulse 61 Pulse Source Pulse Oximeter Temp 98.3 F Temp Source Oral Pulse Oximetry (%) 96 Oxygen Delivery Method Room Air Intake Visit Reasons: 3 mos HTN, HLD Intake Note: patient here for 3 month follow up on HTN and HLD Chief Scientist Required: No Allergies doxycycline Allergy (Mild, Verified 05/08/25 13:43) stomach problems cillins Allergy (Mild, Uncoded 05/08/25 13:43) Rash Medication List - Last Reconciled 05/08/25 by Aakash George CNP amlodipine 2.5 mg PO DAILY 30 days lisinopril 10 mg PO DAILY 30 days Tobacco use date assessed: 05/08/25 Fall risk assessment: No Falls in past year Last assessed Fall Risk: 05/08/25 Dental Screening Dental Screen Date: 05/08/25 Did you have a dental visit in the last 12 months?: Yes Did you have a dental problem in the last 6 months where you did not have access to dental care?: No Was dental information given to patient?: Patient has dentist HPI HPI Comments History of Present Illness Details 65-year-old male presents for hypertensi on and hyperlipidemia follow- up. He admits to taking his medications as prescribed without adverse reactions. He genetic makes healthy dietary choices; however, he consumes significant amount of carbs. He offers no complaints and denies acute symptoms at this time. 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 Current occupational exposures/hazards: No Cognitive needs: No Hearing needs: No Vision needs: No Questionnaire Thrive Questionnaire Date Thrive assessed: 08/07/24 I am a: Patient What is your living situation today?: I have a steady place to live Within the past 12 months, did the food you bought not last and you didn't have the money to get more?: Never true Within the past 12 months, did you worry whether your food would run out before you got money to buy more?: Never true Do you have trouble paying for medicines?: No Do you have trouble getting transportation to medical appointments?: No Do you have trouble paying your heating and electricity bill?: No Do you have trouble taking care of your child, family member or friend?: No Do you have trouble with day-to-day activities such as bathing, preparing meals, shopping, managing finances, etc.?: No Are you currently unemployed and looking for a job?: No Are you interested in more education?: No Please select the resources that you would like help with: None Currently or been in a relationship where the following occur: No concerns reported THRIVE Score: 0 JASWINDER-7 AMB Questionnaire JASWINDER-7 Date JASWINDER - 7 assessed: 10/31/24 Source: Developed by Drs. Jacob Armstrong, Ann Johnson, Kishore Cruz and colleagues, with an educational jada from [employer]. Review of Systems Const Details: Const Denies chills, Denies fatigue, Denies fever(s), Denies headache(s) and Denies weakness ENT Denies dizziness and Denies headache(s) Card Denies chest pain, Denies lightheadedness, Denies dyspnea and Denies other (Palpitations) Resp Denies cough, Denies dyspnea, Denies wheezing and Denies other ( shortness of breath) GI Denies abdominal pain, Denies melena, Denies hematochezia, Denies change in bowel habits, Denies dyspepsia and Denies nausea Denies hematuria and Denies dysuria Musc Denies abnormal gait, Denies myalgias, Denies arthralgias, Denies numbness and Denies tingling Skin/Breast Denies rash, Denies unusual bruising and Denies wounds Neuro Denies abnormal gait, Denies dizziness, Denies headache(s), Denies memory loss, Denies numbness, Denies Sensory deficit (Neuro), Denies tingling and Denies weakness Psych Denies anxiety, Denies depression, Denies memory loss Endo Denies cold intolerance, Denies fatigue, Denies heat intolerance, Denies polydipsia and Denies polyuria Aller/Immun Denies wheezing Physical exam (Primary Care) Vital Signs: Last Vital Signs Temp 98.3 F 05/08/25 13:15 Pulse 61 05/08/25 13:15 Resp 16 05/08/25 13:15 BP 133/71 05/08/25 13:15 Pulse Ox 96 05/08/25 13:15 Oxygen Delivery Method Room Air 05/08/25 13:15 BMI result Body Mass Index 26.7 Tobacco/Smoking Status: Tobacco use Status Tobacco use date assessed 05/08/25 05/08/25 13:18 Patient Tobacco Use Status Never used Tobacco 05/08/25 13:13 e-Cigarette/Vaping Use Never Used 05/08/25 13:13 Thrive Assessment: Date of Thrive Assessment Date Thrive assessed 08/07/24 05/08/25 13:13 Currently or been in a relationship where the following occur: No concerns reported Const Other: General: no acute distress and well developed Nutritional Appearance: well nourished Orientation/consciousness: patient oriented x3 HENMT Head: Yes normocephalic and Yes atraumatic Eyes General: appearance normal, both eyes and all related structures Pupils: Equal, round and reactive pupils present EOM: EOMs intact bilaterally Resp Effort & Inspection: normal respiratory effort Auscultation: clear to auscultation bilaterally Cardio Rate: regular rate Rhythm: regular rhythm Heart sounds: S1 normal heart sound present, S2 normal heart sound present, no gallops, no murmurs and no rubs GI Palpation (GI): No Abdominal aortic bruit present, Soft to palpation, nontender, No hepatosplenomegaly present and No Rebound tenderness present Auscultation: normal bowel sounds General: Yes no CVA tenderness Back/Spine/Pelvis Back: no CVA tenderness Cervical Spine: cervical ROM normal and No Cervical spine tenderness Thoracic/Lumbar Spine: thoraco-lumbar ROM normal, No pain with thoraco-lumbar ROM, No thoracic spinal tenderness and No lumbar spinal tenderness Extrem General: Yes normal to inspection, No edema and No calf tenderness Skin General: warm and dry. Normal skin color. Normal skin turgor Neuro General: patient oriented x3, gait normal and no focal neuro deficit Cranial nerves: Yes Equal, round and reactive pupils present Cognition (Neuro): normal cognition Gait exam (Neuro): Normal gait present Sensory Exam: No Sensory deficit (Neuro) Psych Appearance: grossly normal Affect: normal affect Attitude: cooperative Thought process: Normal thought process present Coding Level of Care Code Est Pt Level 3 (01544) Diagnoses Hypertension I10 Hyperlipidemia E78.5 Assessment & Plan Assessment & Plan (1) Hypertension: Code(s): I10 - Essential (primary) hypertension Category: Medical Plan: Resting blood pressure is 133/71, within goal of less than 140/90. Continue current treatment regimen. Low-sodium diet and routine exercise encouraged. Follow-up in 3 months for transfer of care with a new PCP and hypertension. Return sooner with symptoms or concerns. Verbalized understanding and agreed with the plan. (2) Hyperlipidemia: Code(s): E78.5 - Hyperlipidemia, unspecified Category: Medical Plan: Recent LDL level is slightly elevated, 122, previous level was 125, triglyceride, total cholesterol, and HDL levels are normal. Advised to limit foods high in saturated fat and avoid foods high in trans fat. Routine exercise encouraged. Will monitor lipid panel level annually or if clinically indicated Verbalized understanding and agreed with the plan.
[2025-05-08 13:15] VITALS: BP 133/71; PULSE 61; RESP 16; TEMP 36.8; O2SAT 96; BMI 26.7
--- OUTSIDE RECORDS SUMMARY | 2025-05-08 15:12 | XMS_ITS | Clinical Summary ---
Author Organization [facility] Address [address] [place] [address] Phone Care Team Providers Care Blue Line Operator Name Role Phone Unavailable Primary Care Provider [...] = 15 mg 5 tablet 5 Active Immunizations Immunization Administration Dates Next Due Tdap [...] 3 - Risk 3-dose series) 2021 RSV Vaccines (1 - Risk 60-74 years 1-dose series) 2021 Influenza Vaccine (#1) 2025 03/23/2022 [...] Procedure Name Priority Date/Time Associated Diagnosis Comments COMPREHENSIVE METABOLIC PANEL STAT 10/26/2024 10:37 PM EDT LIPID PANEL (HISTORICAL) Routine 02/06/2023 5:38 AM EDT from Last 3 Months or Most Recently Relevant to Health Maintenance Results * (ABNORMAL) Comprehensive Metabolic Panel (10/26/2024 10:37 PM EDT) Sodium 143 136 - 145 mmol/L 10/26/2024 11:08 PM EDT [facility] Potassium 4.0 3.5 - 5.1 mmol/L 10/26/2024 11:08 PM [facility] Chloride 106 98 - 107 mmol/L 10/26/2024 11:08 PM [facility] Carbon Dioxide 27 22 - 29 mmol/L 10/26/2024 11:08 PM [facility] Anion Gap 10 5 - 15 mmol/L 10/26/2024 11:08 PM [facility] Blood Urea Nitrogen (BUN) 13 6 - 20 mg/dL 10/26/2024 11:08 PM [facility] Creatinine 0.8 0.7 - 1.2 mg/dL 10/26/2024 11:08 PM [facility] eGFR 99 >=60 mL/min/1. 73m*2 10/26/2024 11:08 PM [facility] Comment: Calculation based on the Chronic Kidney Disease Epidemiology Collaboration (CKD- EPI) equation refit without adjustment for race. *This eGRF calculation is based on the 1000-ZBP-GDF creatinine equations for adults designed to estimate glomerular filtration rate (eGFR) without race adjustment factors. *This eGFR results are indexed to standard body surface area (BSA) 1.73 M(2). *eGFR results should only be used for adult patients >=18 years old. *Use of nonindexed eGFR values (mL/min) should be considered for drug dosing decisions. BUN/Creatinine Ratio 16.3 7.0 - 29.0 10/26/2024 11:08 PM T [facility] Glucose 110 82 - 115 mg/dL 10/26/2024 11:08 PM EDT [facility] Calcium 9.3 8.6 - 10.2 mg/dL 10/26/2024 11:08 PM EDT [facility] Total Protein 6.2(L) 6.4 - 8.2 g/dL 10/26/2024 11:08 PM EDT [facility] Albumin 4.2 3.4 - 5.0 g/dL 10/26/2024 11:08 PM EDT [facility] Alkaline Phosphatase 73 40 - 120 U/L 10/26/2024 11:08 PM EDT [facility] Alanine Aminotransferase (ALT) 28 0 - 41 U/L 10/26/2024 11:08 PM EDT [facility] Aspartate Aminotransferase (AST) 32 0 - 40 U/L 10/26/2024 11:08 PM EDT [facility] Bilirubin, Total 0.3 0.0 - 1.2 mg/dL 10/26/2024 11:08 PM EDT [facility] Globulin, Total 2.0 g/dL 11:08 PM EDT [facility] A/G Ratio 2.1 10/26/2024 11:08 PM EDT [facility] Blood Venous blood / Unknown Venipuncture / Unknown 10/26/2024 10:37 PM EDT 10/26/2024 10:49 PM EDT us Abebe Hart MD LAB BLOOD ORDERABLES Final Resu lt [facility] [address] [place] [id number] * (ABNORMAL) LIPID PANEL (HISTORICAL) (02/06/2023 5:38 AM EDT) Cholesterol 202 mg/dL [facility] Comment: DESIRABLE <200 mg/dL BORDER LINE 200-239 mg/dL HIGH RISK >240 mg/dL Triglyceride 204 mg/dL [facility] Comment: DESIRABLE <150 mg/dL [id number] mg/dL HIGH RISK >200 mg/dL HDL Cholesterol 40 mg/dL [facility] Comment: DESIRABLE >55 mg/dL BORDERLINE 35-55 mg/dL HIGH RISK <35 mg/dL Calculated LDL 144 mg/dL [facility] Comment: DESIRABLE <100 mg/dL [place]ORDER LINE 100-159 mg/dL HIGH RISK >160 mg/dL CHOL HDL RATIO (HISTORICAL) 5.1(H) 0.0 - 5.0 . [facility] VLDL (HISTORICAL) 41(H) 5 - 40 . [place] [facility] Comment: CC: OBED FLOOD MD BASIC,MG ADDED TO SPEC# [id number] BY LABELD 02/06/23 0830. 02/06/2023 5:38 AM EDT us Minerva Mendez DO LAB BLOOD ORDERABLES Fin al Result [facility] from Last 3 Months or Most Recently Relevant to Health Maintenance Insurance [facility]
== END 2025-05-08 13:51 | disposition home or self-care (01) ==
LOC: HO.HMCFM 13:00
PROVIDERS: PCP Nurse Practitioner Family; Visit Provider Nurse Practitioner Family
DX: I10 Essential (primary) hypertension (principal); E78.5 Hyperlipidemia, unspecified